=== PATIENT | male | born 1950 | race Caucasian/White ===

== ENCOUNTER 2021-01-19 08:01 | Outpatient (CLI) | payer OTHER, SELFPAY ==
[2021-01-19 08:48] LABS: Hematocrit 41.3 % (42.0-52.0); Hemoglobin 14.1 g/dL (14.0-18.0)
--- NOTE | 2021-01-19 08:56 | ECG_ITS ---
Measurements Intervals [place] Rate: 67 P: 249 NV: 213 QRS: -56 QRSD: 168 T: -10 QT: 386 QTc: 410 Interpretive Statements SINUS RHYTHM WITH FIRST DEGREE AV BLOCK ATRIAL PREMATURE COMPLEXES RIGHT BUNDLE BRANCH BLOCK LEFT ANTERIOR FASCICULAR BLOCK BASELINE ARTIFACT- I, II, III, AVR ABNORMAL ECG Electronically Signed On 01-19-2021 9:23:59 CDT by Robin Holloway D.O.
[2021-01-19 09:07] LABS: Albumin Level 3.8 g/dL (3.5-5.1); Estimated Glomerular Filt Rate > 60; Glucose 105 mg/dL (75-110)
== END 2021-01-19 08:02 | disposition home or self-care (01) ==
LOC: ANHLAB 08:11
PROVIDERS: PCP Internal Medicine; Visit Provider Orthopaedic Surgery
DX: M16.11 Unilateral primary osteoarthritis, right hip (principal); Z01.818 Encounter for other preprocedural examination; R73.9 Hyperglycemia, unspecified; I44.0 Atrioventricular block, first degree
CPT/HCPCS: 36415; 82040; 82565; 82947; 83036; 85014; 85018; 93005

== ENCOUNTER 2021-02-16 10:57 | Outpatient (CLI) | payer OTHER, SELFPAY ==
[2021-02-16 11:59] LABS: Basophils Percent Auto 0.3 % (0.2-1.2); Eosinophils Absolute Auto 0.4 K/mm3 (0-0.3); Eosinophils Percent Auto 6.6 % (0-4.4); Hematocrit 41.8 % (42.0-52.0); Hemoglobin 14.2 g/dL (14.0-18.0); Immature Granulocyte Absolute 0.02 K/mm3 (0.00-0.031); Immature Granulocyte Percent A 0.3 % (0-0.5); Lymphocytes Absolute Auto 1.39 K/mm3 (0.9-3.2); Lymphocytes Percent Auto 22.5 % (18.3-44.2); Mean Corpuscular Hemoglobin 32.6 pg (26-34); Mean Corpuscular Volume 96.1 fl (80-100); Mean Platelet Volume 8.5 fl (7.4-10.4); Monocytes Absolute Auto 0.7 K/mm3 (0.1-0.6); Monocytes Percent Auto 11.3 % (2.6-8.5); Neutrophils Absolute Auto 3.7 K/mm3 (1.3-6.7); Platelet Count Result 284 k/mm3 (150-375); Red Blood Count 4.35 M/mm3 (4.6-6.20); Red Cell Distribution Width 12.7 % (11.5-14.5); White Blood Count 6.2 K/mm3 (4.5-10.0)
[2021-02-16 12:11] LABS: Urine Cotinine NEGATIVE
[2021-02-16 12:12] LABS: Anion Gap 7 mmol/L (8-16); Blood Urea Nitrogen 10 mg/dL (9-20); Calcium 8.9 mg/dL (8.4-10.2); Carbon Dioxide 25 mmol/L (22-30); Chloride 106 mmol/L (98-107); Estimated Glomerular Filt Rate > 60; Glucose 94 mg/dL (75-110); Sodium 138 mmol/L (137-145)
== END 2021-02-16 10:58 | disposition home or self-care (01) ==
LOC: ANHSURGERY 11:00
PROVIDERS: Anesthesiology; PCP Internal Medicine; Visit Provider Orthopaedic Surgery
DX: M16.11 Unilateral primary osteoarthritis, right hip (principal); I10 Essential (primary) hypertension; Z01.818 Encounter for other preprocedural examination
CPT/HCPCS: 36415; 80048; 80307; 85025; 87081

== ENCOUNTER → 2021-02-28 00:41 | Outpatient (CLI) | payer OTHER, SELFPAY ==
[2021-02-28 20:54] LABS: SARS-CoV-2 RNA PCR Negative
== END ==
PROVIDERS: PCP Internal Medicine; Visit Provider Orthopaedic Surgery
DX: Z01.812 Encounter for preprocedural laboratory examination (principal); Z20.822 Contact with and (suspected) exposure to COVID-19
CPT/HCPCS: C9803; U0003; U0005

== ENCOUNTER 2021-03-03 02:51 | Day surgery (SDC) | payer OTHER, SELFPAY ==
[2021-02-16 11:04] VITALS: BMI 23.7
[2021-02-16 11:39] VITALS: BP 155/69; PULSE 74; RESP 16; TEMP 36.9; O2SAT 99
[2021-03-03] VITALS (14 sets, daily range): BP systolic 103–139; BP diastolic 52–69; PULSE 71–105; RESP 12–18; TEMP 35.4–36.9; O2SAT 94–100
--- NOTE | ~2021-03-03 | XR_ITS ---
EXAMINATION: XR hip RT min 2V DATE: 03/03/2021 13:45 INDICATION: Right hip arthroplasty. Postop. TECHNIQUE: 2 views of right hip were obtained. COMPARISON: Right hip radiographs 02/16/2021 FINDINGS: There is a total right hip arthroplasty in near-anatomic alignment. No fracture. There is s oft tissue gas, consistent with recent surgery. IMPRESSION: 1. Total right hip hemiarthroplasty in near-anatomic alignment. Reviewed, dictated and finalized at location A.
--- NOTE | 2021-03-03 10:01 | WPDHPUPDATE1 ---
History and Physical Update Update Date/Time: 03/03/21 10:01 History and Physical has been reviewed, including an updated exam of the patient. There are NO changes in the patient's condition. Risks, benefits, and alternatives have been discussed and questions answered. Patient agrees to proceed with procedure.
--- NOTE | 2021-03-03 10:07 | WPDANESEPPF ---
Anes - Initial Pre Proc Eval Procedure: Operation Date: 03/03/21 11:30 Proposed Procedures p Right Total Hip Arthroplasty - Nghia Chowdhury MD Date/Time: 03/03/21 10:07 Surgeon: Nghia Chowdhury MD Pre Op Diagnosis: primary OA right hip Patient Data Age: 70 Gender: M Height: 1.75 m Weight: 73.1 kg Last Vital Signs Temp 36.9 C 02/16/21 11:39 Pulse 74 02/16/21 11:39 Resp 16 02/16/21 11:39 BP 155/69 H 02/16/21 11:39 Pulse Ox 99 02/16/21 11:39 Allergies Allergy/AdvReac Type Severity Reaction Status Date / Time No Known Allergies Allergy Verified 03/03/21 09:27 Home Medications Medication Instructions Recorded Confirmed Type amlodipine 10 mg tablet See Rx Instructions .ROUTE 10/23/20 03/03/21 Rx .COMPLEX #90 tablet lisinopril 40 mg tablet 40 mg PO DAILY #90 tablet 11/04/20 03/03/21 Rx hydrochlorothiazide 12.5 mg tablet See Rx Instructions .ROUTE 11/28/20 03/03/21 Rx .COMPLEX #90 tablet hydrocodone 5 mg-acetaminophen 325 1 tablet PO Q8H PRN #60 tablet 02/11/21 03/03/21 Rx mg tablet aspirin [Adult Low Dose Aspirin] 81 mg PO DAILY 02/16/21 03/03/21 History niacin 500 mg PO DAILY 02/16/21 03/03/21 History Patient hx anesthesia problems: none Family hx anesthesia problems: none PMFSH Past Medical History Medical History Essential (primary) hypertension Primary osteoarthritis of right hip Family History Family History Sibling Patient's sister is in good health Father Family history of malignant neoplasm Patient's father is Mother Family history of malignant neoplasm Patient's mother is Social History Social History Smoking status: Never smoker Additional smoking assessment comments: DENIES ANY FORM OF TOBACCO USE Alcohol intake: current Drinks per week: 8 Alcohol use details: BEER Substance use: never Living arrangements: with friend(s) Gender identity (if verbalized by the patient): Male Spiritual care concerns: No Anes - Eval Final PreProcedure Day of Procedure 03/03/21 10:07 Patient weight: normal Heart: regular rate and rhythm Lungs: clear to auscultation and normal air movement Airway: Mallampati scale class II Neurological: alert and oriented Last oral intake: >/= 8 hours ASA classification: II Emergent: no Anesthetic plan: proceed Anesthesia type and monitoring: general ETT and standard monitoring Informed Consent: The patient's anesthetic plan and its attendant risks and benefits were discussed with the patient/family/POA. Questions were solicited and answers provided to the satisfaction of the patient/family/POA.
[2021-03-03] MEDS: LACTATED RINGERS 1,000 ML 30 ML IV CONT ×2 (10:09→13:29)
[2021-03-03] MEDS: TRANEXAMIC ACID 1,000MG/ISO100 1,000 MG/100 ML BAG 200 MG IVPB (10:26)
[2021-03-03] MEDS: ceFAZolin 2 GM/D5W 50 ML 2 GM/50 ML BAG IVPB (11:10)
--- NOTE | 2021-03-03 14:17 | PM.PROC ---
Procedure Note - Detailed Date of procedure: 03/03/21 Pre-op diagnosis: primary OA right hip Post-op diagnosis: same Procedure performed: Total hip arthroplasty, right hip. Description of procedure: End-stage disease with flexion contracture. Extensive periacetabular osteophytes removed. Good bone quality. Implants: The Accolade II hip stem, 127 degree size 5 , was utilized with excellent press-fit. The 58 mm Trident II acetabular component was impacted with excellent press-fit stability. 10 degree elevated polyethylene liner. The -2.5mm , 36 mm Biolox ceramic femoral head was utilized. Anesthesia: GLMA Surgeon: Nghia Chowdhury MD Estimated blood loss (mL): 300 Drains: No Pathology: none sent Complications: None Condition: stable Disposition: PACU Findings: OPERATIVE DETAILS: The patient was given preoperative antibiotics. A general anesthetic was administered. The patient was carefully placed in the lateral decubitus position on the PEG board. The shoulders and hips were carefully positioned for component and leg length positioning reference. The hip was prepped and draped in the usual sterile fashion. A longitudinal incision was created over the posterior aspect of the greater trochanter. Careful dissection was brought down through the deep fascia with electrocautery. A minimally invasive optimized posterior approach to the hip was performed. The short external rotators and capsule were taken down in an L-shaped capsulotomy. The tissue was tagged for later repair using number 2 high strength suture. The femoral neck was measured and taken in situ. The femoral head was removed. The acetabulum was carefully exposed. The inferior capsule was released. The labrum was resected. The acetabulum was sequentially reamed to the intended cup size. The cup was impacted into position with excellent press-fit. Typical anatomic landmarks, including the bony contact points as well as the inferior transverse acetabular ligament were used to confirm cup positioning with preoperative templating. Attention was turned to the femur, which was carefully exposed. The hip was reamed and then broached sequentially. Excellent press-fit was obtained with the broach. The hip was trialed. Measurements were utilized, including the lesser trochanter as well as the center of the femoral head and the tip of the trochanter, and excellent assessment of the offset and leg lengths were confirmed. The real components were impacted into position. Trialing confirmed appropriate leg length and offset with soft tissue balancing as well apparent feel of the leg, both at the knee and the heel. Soft tissues were assessed using the iliotibial band. Reduction of the posterior capsule and external rotators were also used as a secondary assessment. The hip was copiously irrigated with pulsatile lavage antibiotic solution periodically throughout the procedure. The real components were then assembled and reduced. The hip was stable throughout typical maneuvers, including extension, external rotation to 70 degrees, the position of sleep as well as flexion to 90 degrees with internal rotation past 45 degrees. The shake test confirmed stability without impingement. Osteophytes were removed as necessary. The short external rotators and capsule were repaired back to the posterior trochanter through drill holes. The deep fascia was repaired with running number 2 Quill suture, followed by 0 Stratafix suture and 2-0 Stratafix suture in the dermis. Steri-Strips were placed on the skin, followed by a sterile silver occlusive dressing. There were no complications. Meticulous hemostasis was maintained with the AquaMantys device. The patient was brought to the recovery room in stable condition. There were no complications.
--- NOTE | 2021-03-03 15:00 | ADMGEN ---
This patient, Dada Hameed, was admitted to Medical Room 254-01 from PACU. Patient/family oriented to hospital policies and general routines including ID bracelet, bed and alarms, visiting hours, pain management, procedures, bathroom and other care routines, personal items, smoking policy, room service/diet, and visiting hours. Information on how to activate the Rapid Response Team has been discussed. Patient/Family are encouraged to report perceived risks to care and to ask questions if they do not understand what they are told or what they should do.
[2021-03-03] MEDS: oxyCODONE HCL (*CRX) 5 MG TAB IR PO (15:34)
[2021-03-03 16:23] LABS: Hematocrit 37.8 % (42.0-52.0); Hemoglobin 13.1 g/dL (14.0-18.0)
[2021-03-03] MEDS: NIACIN SA 500 MG TABLET PO (16:24)
[2021-03-03] MEDS: DOCUSATE SODIUM 100 MG CAPSULE PO (16:24)
[2021-03-03] MEDS: hydroCHLOROthiazide 12.5 MG CAPSULE PO (16:24)
[2021-03-03] MEDS: lisinopriL 20 MG TABLET 40 MG PO (16:24)
[2021-03-03] MEDS: KETOROLAC 15 MG/ML VIAL (*BKC) IV PUSH ×2 (18:08→23:34)
--- NOTE | 2021-03-03 23:18 | PC.NURSE ---
Jr Ramos RNLP provided care and documentation for patient from 7 pm to 7:30 am, I have reviewed documentation and care for patient.
[2021-03-04 00:39] VITALS: BP 131/59; PULSE 72; RESP 16; TEMP 36.1; O2SAT 98
[2021-03-04 05:04] VITALS: BP 140/54; PULSE 72; RESP 16; TEMP 36.2; O2SAT 98
[2021-03-04 05:46] LABS: Basophils Percent Auto 0.1 % (0.2-1.2); Hematocrit 31.4 % (42.0-52.0); Hemoglobin 10.9 g/dL (14.0-18.0); Immature Granulocyte Absolute 0.04 K/mm3 (0.00-0.031); Immature Granulocyte Percent A 0.3 % (0-0.5); Lymphocytes Absolute Auto 0.72 K/mm3 (0.9-3.2); Lymphocytes Percent Auto 5.2 % (18.3-44.2); Mean Corpuscular HGB Conc 34.7 g/dl (32-36); Mean Corpuscular Hemoglobin 33.3 pg (26-34); Mean Platelet Volume 8.7 fl (7.4-10.4); Monocytes Absolute Auto 1.4 K/mm3 (0.1-0.6); Monocytes Percent Auto 10.1 % (2.6-8.5); Neutrophils Absolute Auto 11.6 K/mm3 (1.3-6.7); Neutrophils Percent Auto 84.3 % (45.5-73.1); Platelet Count Result 252 k/mm3 (150-375); Red Blood Count 3.27 M/mm3 (4.6-6.20); Red Cell Distribution Width 12.4 % (11.5-14.5); White Blood Count 13.7 K/mm3 (4.5-10.0)
[2021-03-04 05:55] LABS: Anion Gap 5 mmol/L (8-16); Blood Urea Nitrogen 13 mg/dL (9-20); Calcium 8.1 mg/dL (8.4-10.2); Carbon Dioxide 25 mmol/L (22-30); Chloride 102 mmol/L (98-107); Estimated CRCL calculation 82 ml/min; Estimated Glomerular Filt Rate > 60; Glucose 136 mg/dL (75-110); Potassium 3.6 mmol/L (3.4-5.0); Sodium 132 mmol/L (137-145)
[2021-03-04] MEDS: KETOROLAC 15 MG/ML VIAL (*BKC) IV PUSH ×2 (05:56→11:38)
[2021-03-04] MEDS: amLODIPine BESYLATE 5 MG TABLET 10 MG PO (08:10)
[2021-03-04] MEDS: DOCUSATE SODIUM 100 MG CAPSULE PO (08:10)
[2021-03-04] MEDS: ASPIRIN 81 MG CHEWABLE TABLET PO (08:10)
[2021-03-04] MEDS: hydroCHLOROthiazide 12.5 MG CAPSULE PO (08:11)
[2021-03-04] MEDS: NIACIN SA 500 MG TABLET PO (08:11)
[2021-03-04] MEDS: oxyCODONE HCL (*CRX) 5 MG TAB IR 10 MG PO (08:11)
[2021-03-04] MEDS: lisinopriL 20 MG TABLET 40 MG PO (08:11)
--- NOTE | 2021-03-04 09:23 | P.PNAN_ITS ---
Anes - Prog Note Post-Op Date/Time: 03/04/21 09:23 Cardiovascular status: normal Respiratory status: normal Airway patency: baseline Mental status: baseline Post-Op hydration status: normal Vital Signs: Last Vital Signs Temp 36.2 C L 03/04/21 05:04 Pulse 72 03/04/21 05:04 Resp 16 03/04/21 05:04 BP 140/54 L 03/04/21 05:04 Pulse Ox 98 03/04/21 05:04 Pain Score (VAS): 7 I/O: Intake & Output 03/03/21 03/04/21 03/04/21 23:59 07:59 15:59 Intake Total 470 400 Balance 470 400 Laboratory Tests 03/04/21 05:28 03/04/21 05:28 03/03/21 03/03/21 03/04/21 09:46 15:38 05:28 WBC 13.7 H RBC 3.27 L Hgb 13.1 L 10.9 L Hct 37.8 L 31.4 L MCV 96.0 MCH 33.3 MCHC 34.7 RDW 12.4 Plt Count 252 MPV 8.7 Immature Gran % (Auto) 0.3 Neut % (Auto) 84.3 H Lymph % (Auto) 5.2 L [place] % (Auto) 10.1 H Eos % (Auto) 0.0 Baso % (Auto) 0.1 L Lymph # (Auto) 0.72 L [place] # (Auto) 1.4 H Eos # (Auto) 0.0 Baso # (Auto) 0.0 Abs Immat Gran (auto) 0.04 H Absolute Neuts (auto) 11.6 H Absolute Nucleated RBC 0.0 Nucleated RBC % 0.0 Sodium Potassium Chloride Carbon Dioxide Anion Gap BUN Creatinine Estim Creat Clear Calc Estimated GFR Glucose Calcium Blood Type O Negative Antibody Screen Negative 03/04/21 05:28 WBC RBC Hgb Hct MCV MCH MCHC RDW Plt Count MPV Immature Gran % (Auto) Neut % (Auto) Lymph % (Auto) [place] % (Auto) Eos % (Auto) Baso % (Auto) Lymph # (Auto) [place] # (Auto) Eos # (Auto) Baso # (Auto) Abs Immat Gran (auto) Absolute Neuts (auto) Absolute Nucleated RBC Nucleated RBC % Sodium 132 L Potassium 3.6 Chloride 102 Carbon Dioxide 25 Anion Gap 5 L BUN 13 Creatinine 0.70 Estim Creat Clear Calc 82 Estimated GFR > 60 Glucose 136 H Calcium 8.1 L Blood Type Antibody Screen Post-procedural complaints: none Patient Feedback: Patient satisfied with anesthetic care.
[2021-03-04 10:00] VITALS: BP 150/62; PULSE 85; RESP 12; TEMP 36.2; O2SAT 96
--- NOTE | 2021-03-04 12:28 | PM.DS ---
DS: Admitting Diagnosis Admitting Diagnosis Admitting Diagnosis: hip arthritis right DS: Discharge Diagnosis Discharge Diagnosis (1) Primary osteoarthritis of right hip: Code(s): M16.11 - Unilateral primary osteoarthritis, right hip Status: Acute (2) Status post total hip replacement, right: Code(s): Z96.641 - Presence of right artificial hip joint Status: Acute DS: Summary Hospital Course Reason for hospitalization: Total hip arthroplasty. Hospital Course: Tolerated surgery well. Progressed appropriately with therapy. Status at Discharge Functional status at discharge: uses cane/walker Overall status at discharge: patient is progressing back to baseline Time Spent with Patient Time attestation: Total time spent providing and/or coordinating discharge services: Exam Const: General: no acute distress Resp: Effort & Inspection: normal respiratory effort Skin: Other: Wound healing well. Mepilex dressing intact. No hematoma or drainage. Neuro: Motor exam (neuro): 5/5 motor strength present throughout Sensory Exam: normal sensation Psych: Mental Status: mental status grossly normal Speech and movement: Normal speech and movement present DS: Data Data Completed and Pending Labs on day of discharge: Labs from last 24 hours 03/04/21 03/04/21 03/03/21 05:28 05:28 15:38 WBC 13.7 H RBC 3.27 L Hgb 10.9 L 13.1 L Hct 31.4 L 37.8 L MCV 96.0 MCH 33.3 MCHC 34.7 RDW 12.4 Plt Count 252 MPV 8.7 Immature Gran % (Auto) 0.3 Neut % (Auto) 84.3 H Lymph % (Auto) 5.2 L [place] % (Auto) 10.1 H Eos % (Auto) 0.0 Baso % (Auto) 0.1 L Lymph # (Auto) 0.72 L [place] # (Auto) 1.4 H Eos # (Auto) 0.0 Baso # (Auto) 0.0 Abs Immat Gran (auto) 0.04 H Absolute Neuts (auto) 11.6 H Absolute Nucleated RBC 0.0 Nucleated RBC % 0.0 Sodium 132 L Potassium 3.6 Chloride 102 Carbon Dioxide 25 Anion Gap 5 L BUN 13 Creatinine 0.70 Estim Creat Clear Calc 82 Estimated GFR > 60 Glucose 136 H Calcium 8.1 L Discharge Plan Discharge Patient Disposition: Home, Self-Care Discharge Instructions: See instruction sheet. Stand Alone Forms: General Discharge Instructions Follow-up/Referrals: Nghia Chowdhury MD [Physician] - Discharge Medications: New oxycodone-acetaminophen 5-325 mg tablet 1 - 2 tablet PO Q4-6H MDD 8 tablets PRN (Reason: pain) Qty: 30 RF: 0 Continued niacin 500 mg Tablet 500 mg PO DAILY RF: 0 aspirin 81 mg Tablet 81 mg PO DAILY RF: 0 amlodipine 10 mg tablet See Rx Instructions .ROUTE .COMPLEX Qty: 90 RF: 1 lisinopril 40 mg tablet 40 mg PO DAILY Qty: 90 RF: 1 hydrochlorothiazide 12.5 mg tablet See Rx Instructions .ROUTE .COMPLEX Qty: 90 RF: 1 Discontinued hydrocodone-acetaminophen 5-325 mg tablet 1 tablet PO Q8H PRN (Reason: pain) Qty: 60 RF: 0
== END 2021-03-04 13:36 | disposition home or self-care (01) ==
LOC: ANHSURGERY 09:25 → ANH2MED 15:04
PROVIDERS: PCP Internal Medicine; Visit Provider Orthopaedic Surgery
PROC: (CPT 27130; principal; 2021-03-03 11:30)
DX: M16.11 Unilateral primary osteoarthritis, right hip (principal); Z79.82 Long term (current) use of aspirin; I10 Essential (primary) hypertension
CPT/HCPCS: 27130; 36415; 73502; 80048; 80307; 85014; 85018; 85025; 86850; 86900; 86901; 87081; 97110; 97161; 97165; A9270; C1776; C9803; J0131; J0171; J0690; J1100; J1170; J1885; J2250; J2270; J2405; J2704; J2710; J2795; J3010; J7120; U0003; U0005

== ENCOUNTER 2022-06-01 13:05 | Outpatient (CLI) | payer OTHER, SELFPAY ==
--- NOTE | ~2022-06-01 | XR_ITS ---
XR abdomen/kub 1V 06/01/2022 13:19 Indication: Constipation Procedure: KUB Comparison: No prior studies for comparison. Findings: Bowel gas pattern is nonobstructive. No abnormal calcifications. There is a right total hip arthroplasty. No there is moderate lumbar spondylosis. Impression: 1: Nonobstructive bowel gas pattern. Reviewed, dictated and finalized at location A. Impression: 1: Nonobstructive bowel gas pattern.
== END 2022-06-01 13:06 | disposition home or self-care (01) ==
PROVIDERS: PCP Internal Medicine; Visit Provider Internal Medicine
DX: K59.00 Constipation, unspecified (principal)
CPT/HCPCS: 74018

== ENCOUNTER 2022-06-20 08:28 | Emergency (ER) | payer OTHER, SELFPAY ==
--- NOTE | ~2022-06-20 | CT_ITS ---
EXAMINATION: CT abdomen pelvis w con INDICATION: Generalized abdominal pain TECHNIQUE: Computed tomographic images of the abdomen and pelvis were obtained after the administrati on of 100 cc of Omnipaque 350 intravenous contrast. The dose-length product (DLP) was 433.78 mGy-cm. Automated exposure control and iterative reconstruction technique were employed. COMPARISON: None available FINDINGS: Minimal dependent atelectasis is present in the lung bases. The heart size is normal. The l iver, spleen, pancreas, gallbladder, and adrenal glands are normal. There is calcified atherosclerosi s of the aorta and many of the other arteries. No pathologically enlarged abdominal or pelvic lymph n odes are identified. There is no free intraperitoneal gas or evidence of bowel obstruction. There are some areas of formed stool in nondistended small bowel, consistent with slow transit. There is a lef t inguinal hernia containing fat. There is severe lumbar spondylosis. Changes of right hip arthroplas ty are noted. IMPRESSION: 1. No CT correlate for the patient's symptoms. Reviewed, dictated and finalized at location A.
[2022-06-20 08:33] VITALS: BP 130/60; PULSE 82; RESP 18; TEMP 36.6; O2SAT 99
[2022-06-20 08:36] VITALS: BP 135/72; O2SAT 97
--- NOTE | 2022-06-20 08:45 | ED.ABDPAIN ---
HPI - Abdominal Pain General Chief Complaint: Abdominal Pain Stated Complaint: constipation, weakness Time Seen by Provider: 06/20/22 08:44 Source: patient and RN notes reviewed Mode of arrival: ambulatory Limitations: no limitations History of Present Illness HPI narrative: 71 years old white male that lives alone, came by private car from home complaining of general weakness for more than 1 week, also bloating/constipation for more than 1 month, was seen by his family physician and started on MiraLAX. Patient been having on average 1-3 bowel movement a day but still feeling bloated. Patient scheduled for colonoscopy July 2022, patient has good appetite, denies any fever, chills, nausea, vomiting, chest pain or shortness of breath. Patient reports that the bloating gets worse every time he eats. Related Data Home Medications Medication Instructions Recorded Confirmed aspirin 81 mg tablet 81 mg PO DAILY 02/16/21 06/15/22 niacin 500 mg tablet 500 mg PO DAILY 02/16/21 06/15/22 calcium polycarbophil 625 mg 1,250 mg PO DAILY 06/15/22 06/15/22 tablet (FiberCon) Allergies Allergy/AdvReac Type Severity Reaction Status Date / Time No Known Allergies Allergy Verified 06/15/22 08:46 Review of Systems Review of Systems: All systems reviewed & are unremarkable except as noted in HPI and below PMFSH Past Medical History Medical History Essential (primary) hypertension Primary osteoarthritis of right hip Surgical History Surgical History Status post total hip replacement, right Family History Family History Sibling Patient's sister is in good health Father Family history of malignant neoplasm Patient's father is Mother Family history of malignant neoplasm Patient's mother is Social History Social History Smoking status: Never smoker Additional smoking assessment comments: DENIES ANY FORM OF TOBACCO USE Alcohol intake: current Drinks per week: 9 Alcohol use details: BEER Substance use: never Substance use type: does not use Gender identity (if verbalized by the patient): Male Sexual Orientation (if Verbalized by the Patient): Straight or Heterosexual Spiritual care concerns: No Exam Narrative: General appearance: Well-developed, well-nourished Skin: Normal color Head: Normocephalic, nontraumatic Eyes: Clear conjunctiva ENT: Oropharynx normal, ears normal, nose normal Neck: Supple, nontender Chest and respiratory: Airway patent, no respiratory distress, no accessory muscle use Heart: Regular rate/rhythm Abdomen: Soft, nontender, no organomegaly, quiet bowel sounds Vascular: Normal peripheral pulses, normal capillary refill. 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 Patient currently on MiraLAX. Believe patient probably have gastritis, versus stress/anxiety inducing abdominal discomfort. Patient lives alone. Vital Signs Vital signs: Vital Signs Temperature 36.6 C 06/20/22 08:33 Pulse Rate 82 06/20/22 08:33 Respiratory Rate 18 06/20/22 08:33 Blood Pressure 130/60 06/20/22 08:33 Pulse Oximetry 99 06/20/22 08:33 Oxygen Delivery Room Air 06/20/22 08:33 Temperature 36.6 C 06/07
[2022-06-20 08:46] VITALS: BP 130/67; O2SAT 93
[2022-06-20 08:47] LABS: Basophils Percent Auto 0.5 % (0.2-1.2); Eosinophils Absolute Auto 0.4 K/mm3 (0-0.3); Eosinophils Percent Auto 6.6 % (0-4.4); Hematocrit 46.5 % (42.0-52.0); Hemoglobin 15.3 g/dL (14.0-18.0); Immature Granulocyte Absolute 0.02 K/mm3 (0.00-0.031); Immature Granulocyte Percent A 0.3 % (0-0.5); Lymphocytes Absolute Auto 1.62 K/mm3 (0.9-3.2); Lymphocytes Percent Auto 26.6 % (18.3-44.2); Mean Corpuscular HGB Conc 32.9 g/dl (32-36); Mean Corpuscular Hemoglobin 32.4 pg (26-34); Mean Corpuscular Volume 98.5 fl (80-100); Mean Platelet Volume 8.5 fl (7.4-10.4); Monocytes Absolute Auto 0.8 K/mm3 (0.1-0.6); Neutrophils Absolute Auto 3.2 K/mm3 (1.3-6.7); Platelet Count Result 269 k/mm3 (150-375); Red Blood Count 4.72 M/mm3 (4.6-6.20); Red Cell Distribution Width 13.2 % (11.5-14.5); White Blood Count 6.1 K/mm3 (4.5-10.0)
[2022-06-20 09:00] LABS: Alanine Aminotransferase 20 U/L (6-50); Albumin Level 4.3 g/dL (3.5-5.1); Alkaline Phosphatase 84 U/L (38-126); Anion Gap 8 mmol/L (8-16); Aspartate Amino Transferase 31 U/L (17-59); Bilirubin,Total 0.6 mg/dL (0.2-1.3); Blood Urea Nitrogen 14 mg/dL (9-20); Calcium 8.9 mg/dL (8.4-10.2); Carbon Dioxide 23 mmol/L (22-30); Chloride 105 mmol/L (98-107); Estimated CRCL calculation 81 ml/min; Estimated Glomerular Filt Rate > 60; Glucose 109 mg/dL (65-110); Lipase 75 U/L (23-300); Potassium 3.8 mmol/L (3.4-5.0); Sodium 136 mmol/L (137-145)
[2022-06-20] MEDS: ONDANSETRON INJ 4 MG/2 ML VIAL IV PUSH (09:17)
[2022-06-20] MEDS: MORPHINE SULFATE (*CRX) 4 MG/ML INJ IV PUSH (09:18)
[2022-06-20] MEDS: SODIUM CHLORIDE 0.9% IV 1,000 ML 999 ML IV CONT (09:18)
[2022-06-20 10:02] VITALS: BP 134/60; O2SAT 97
[2022-06-20 10:19] LABS: Appearance Urine Clear (Clear); Bilirubin Urine Negative (Negative); Blood Urine Negative (Negative); Color Urine Yellow (Yellow); Glucose Urine UA Negative (Negative); Ketones Urine Trace mg/dL (Negative); Leukocyte Esterase Ur Negative LEU/UL (Negative); Nitrate Urine Negative (Negative); Protein Urine Negative (Negative); Specific Grav Ur 1.015 (1.001-1.035)
[2022-06-20 10:35] LABS: Mucus Urine Rare /lpf; RBC Urine 0-2 /hpf (0-2)
[2022-06-20 10:45] LABS: Add Urine Microscopic? YES
== END 2022-06-20 11:18 | disposition home or self-care (01) ==
PROVIDERS: Emergency Provider Emergency Medicine; PCP Internal Medicine
DX: R53.1 Weakness (principal); R10.9 Unspecified abdominal pain; I10 Essential (primary) hypertension; M16.11 Unilateral primary osteoarthritis, right hip; Z96.641 Presence of right artificial hip joint; Z79.82 Long term (current) use of aspirin
CPT/HCPCS: 36415; 74177; 80053; 81001; 83690; 85025; 96361; 96374; 96375; 99284; J2270; J2405; J7030; Q9967

== ENCOUNTER 2022-06-27 08:30 | Emergency (ER) | payer OTHER, SELFPAY ==
--- NOTE | ~2022-06-27 | CT_ITS ---
EXAMINATION: CT abdomen pelvis w con DATE: 06/27/2022 10:18 INDICATION: Generalized abdominal pain. TECHNIQUE: Computed tomography (CT) of the abdomen and pelvis was performed with 100 mL Omnipaque 350 intravenous contrast. Automated exposure control and iterative reconstruction technique were employe d. The dose-length product was 394.05 mGy-cm. COMPARISON: CT abdomen and pelvis 06/20/2022 FINDINGS: The visualized portions of the lung bases demonstrate mild atelectasis. No pleural effusion . There is left atrial enlargement of the heart. There are coronary artery calcifications. No pericar dial effusion. The liver, gallbladder, spleen, pancreas, adrenal glands, and kidneys are normal. The prostate is mildly enlarged. There is a left inguinal hernia containing fat. There is diverticulosis of the colon without evidence of diverticulitis. The appendix is normal. There are no pathologically enlarged lymph nodes. There is no free intraperitoneal fluid. There is a total right hip arthroplasty . There is severe lumbar spondylosis. IMPRESSION: 1. Left inguinal hernia containing fat. Reviewed, dictated and finalized at location A.
--- NOTE | ~2022-06-27 | XR_ITS ---
EXAMINATION: XR abdomen obstructive series DATE: 06/27/2022 09:09 INDICATION: Constipation. Abdominal pain. TECHNIQUE: Upright and supine views of the abdomen on 3 radiographs were obtained. COMPARISON: CT abdomen and pelvis 06/20/2022 FINDINGS: There are no dilated loops of bowel. There is a small volume of stool in the colon. No free intraperitoneal gas. There is a total right hip arthroplasty. IMPRESSION: 1. Normal bowel gas pattern. Reviewed, dictated and finalized at location A.
[2022-06-27 08:32] VITALS: BP 152/119; PULSE 66; RESP 20; TEMP 36.8; O2SAT 98
--- NOTE | 2022-06-27 09:06 | ED.ABDPAIN ---
HPI - Abdominal Pain General Chief Complaint: Abdominal Pain Stated Complaint: abd pain Time Seen by Provider: 06/27/22 09:04 Source: patient Mode of arrival: ambulatory Limitations: no limitations History of Present Illness HPI narrative: 71 years old white male came from home with the chief complaint of abdominal bloating for over 1 month, was seen recently in our emergency room, also was seen by his family physician who referred him to Dr. Mcdonald who schedule him for colonoscopy July 08, patient stopped taking MiraLAX 1 week Related Data Home Medications Medication Instructions Recorded Confirmed aspirin 81 mg tablet 81 mg PO DAILY 02/16/21 06/15/22 niacin 500 mg tablet 500 mg PO DAILY 02/16/21 06/15/22 calcium polycarbophil 625 mg 1,250 mg PO DAILY 06/15/22 06/15/22 tablet (FiberCon) Allergies Allergy/AdvReac Type Severity Reaction Status Date / Time No Known Allergies Allergy Verified 06/15/22 08:46 Review of Systems Review of Systems: All systems reviewed & are unremarkable except as noted in HPI and below PMFSH Past Medical History Medical History Essential (primary) hypertension Primary osteoarthritis of right hip Surgical History Surgical History Status post total hip replacement, right Family History Family History Sibling Patient's sister is in good health Father Family history of malignant neoplasm Patient's father is Mother Family history of malignant neoplasm Patient's mother is Social History Social History Smoking status: Never smoker Additional smoking assessment comments: DENIES ANY FORM OF TOBACCO USE Alcohol intake: current Drinks per week: 9 Alcohol use details: BEER Substance use: never Substance use type: does not use Gender identity (if verbalized by the patient): Male Sexual Orientation (if Verbalized by the Patient): Straight or Heterosexual Spiritual care concerns: No Exam Narrative: General appearance: Well-developed, well-nourished Skin: Normal color Head: Normocephalic, nontraumatic Eyes: Clear conjunctiva ENT: Oropharynx normal, ears normal, nose normal Neck: Supple, nontender Chest and respiratory: Airway patent, no respiratory distress, no accessory muscle use Heart: Regular rate/rhythm Abdomen: Soft, nontender, no organomegaly, quiet bowel sounds, distended Vascular: Normal peripheral pulses, normal capillary refill. Musculoskeletal: Normal range of motion, nontender back Neurologic: Alert and oriented ?3, SURGICAL TECHNOLOGIST is normal as tested, no gross motor deficit Course Vital Signs Vital signs: Vital Signs Temperature 36.8 C 06/27/22 08:32 Pulse Rate 66 06/27/22 08:32 Respiratory Rate 20 06/27/22 08:32 Blood Pressure 152/119 H 06/27/22 08:32 Pulse Oximetry 98 06/27/22 08:32 Oxygen Delivery Room Air 06/27/22 08:32 Temperature 36.5 C 06/27/22 09:11 Pulse Rate 66 06/27/22 09:11 Respiratory Rate 14 06/27/22 09:11 Blood Pressure 143/64 H 06/27/22 09:11 Pulse Oximetry 96 06/27/22 09:11 Oxygen Delivery Room Air 06/27/22 08:32 MDM - Abdominal Pain Differential Diagnosis Differential diagnosis: Likely abdominal pain, constipation, diverticulitis, gastroenteritis and pancreatitis Lab Data Result diagrams: 06/27/22 09:03 06/27/22 09:28 Labs: Lab Results 06/27/22 06/27/22 06/27/22 Range/Units 09:03 09:28 09:28 WBC 5.5 (4.5-10.0) K/
[2022-06-27 09:07] LABS: Basophils Percent Auto 0.4 % (0.2-1.2); Eosinophils Absolute Auto 0.3 K/mm3 (0-0.3); Eosinophils Percent Auto 4.9 % (0-4.4); Hematocrit 44.8 % (42.0-52.0); Hemoglobin 15.5 g/dL (14.0-18.0); Immature Granulocyte Absolute 0.02 K/mm3 (0.00-0.031); Immature Granulocyte Percent A 0.4 % (0-0.5); Lymphocytes Percent Auto 23.6 % (18.3-44.2); Mean Corpuscular HGB Conc 34.6 g/dl (32-36); Mean Corpuscular Hemoglobin 33.8 pg (26-34); Mean Corpuscular Volume 97.6 fl (80-100); Mean Platelet Volume 8.7 fl (7.4-10.4); Monocytes Absolute Auto 0.6 K/mm3 (0.1-0.6); Monocytes Percent Auto 10.3 % (2.6-8.5); Neutrophils Absolute Auto 3.3 K/mm3 (1.3-6.7); Neutrophils Percent Auto 60.4 % (45.5-73.1); Platelet Count Result 274 k/mm3 (150-375); Red Blood Count 4.59 M/mm3 (4.6-6.20); Red Cell Distribution Width 13.2 % (11.5-14.5); White Blood Count 5.5 K/mm3 (4.5-10.0)
[2022-06-27 09:11] VITALS: BP 143/64; PULSE 66; RESP 14; TEMP 36.5; O2SAT 96
[2022-06-27 09:35] LABS: Appearance Urine Clear (Clear); Bilirubin Urine 1+ (Negative); Blood Urine Negative (Negative); Color Urine Yellow (Yellow); Glucose Urine UA Negative (Negative); Ketones Urine Trace mg/dL (Negative); Leukocyte Esterase Ur Negative LEU/UL (Negative); Nitrate Urine Negative (Negative); Protein Urine Negative (Negative)
[2022-06-27 09:43] LABS: Bacteria Urine Trace /hpf; Mucus Urine Rare /lpf; RBC Urine 0-2 /hpf (0-2); WBC Urine 0-3 /hpf
[2022-06-27 09:44] LABS: Add Urine Microscopic? YES
[2022-06-27 09:48] LABS: Alanine Aminotransferase 20 U/L (6-50); Albumin Level 4.2 g/dL (3.5-5.1); Alkaline Phosphatase 77 U/L (38-126); Anion Gap 8 mmol/L (8-16); Aspartate Amino Transferase 35 U/L (17-59); Bilirubin,Total 0.5 mg/dL (0.2-1.3); Blood Urea Nitrogen 13 mg/dL (9-20); Calcium 8.5 mg/dL (8.4-10.2); Carbon Dioxide 25 mmol/L (22-30); Chloride 106 mmol/L (98-107); Estimated Glomerular Filt Rate > 60; Glucose 112 mg/dL (65-110); Lipase 58 U/L (23-300); Potassium 3.7 mmol/L (3.4-5.0); Sodium 139 mmol/L (137-145)
[2022-06-27 11:23] VITALS: RESP 16
== END 2022-06-27 11:24 | disposition home or self-care (01) ==
PROVIDERS: Emergency Provider Emergency Medicine; PCP Internal Medicine
DX: K40.90 Unilateral inguinal hernia, without obstruction or gangrene, not specified as recurrent (principal); R10.9 Unspecified abdominal pain; I10 Essential (primary) hypertension; M16.11 Unilateral primary osteoarthritis, right hip
CPT/HCPCS: 36415; 74019; 74177; 80053; 81001; 83690; 85025; 99284; Q9967

== ENCOUNTER 2022-07-08 05:00 | Day surgery (SDC) | payer OTHER, SELFPAY ==
--- NOTE | 2022-07-07 08:51 | PC.NURSE ---
Called patient this am to inquire if he was able to get a ride secured for procedure sched. 07/08/22. He does indicate his friend Dada will be driving him, after taking drivers info. I said we will see you in the morning and pt responded with I'm not sure about that . Upon questioning him about why he said that he states he is very weak, has already gone to the bathroom at least 4 times this morning and has not even started the prep, he states he has fallen twice this am. I asked him if I could call a family member or friend and he says what can they do for me, I just can't do this anymore, something is wrong with me. I explained that is why someone needs to come check on him and either help him to Dr. Zuñiga's office or he should call 911 and go to ER. He states he doesn't see what they will do for him, again I reiterated to him they can give him immediated care if needed and try to find out what is making him feel so bad. I offered to call someone for him and refused, He assured me he will call his neighbor or Dada-friend. I did tell him I will call and check on him in an hour but if he starts to feel worse he needs to call 911.
--- NOTE | 2022-07-07 10:14 | PC.NURSE ---
0915 called and spoke with office personnel in Dr. Zuñiga's office regarding conversation I had with him this morning, message sent to Dr. Zuñiga regarding this. 1015 spoke with Franky in Dr. Saleh office, pt came in and was seen at 0945 this morning. Lab work ordered, some changes to meds. no mention if pt is able to proceed with colonoscopy or not. She will ask Dr. Zuñiga and get back to me.
--- NOTE | 2022-07-07 13:08 | PC.NURSE ---
Spoke with Dr. Saleh office staff and he encouraged pt to proceed with colonoscopy. Pt called at 1300 to inform me he had taken the laxative tablets about 2 hours ago and still had not had a BM, I explained he may not until he starts Miralax. I encouraged him to drink lots of clear liquids and to keep his phone with him in case he would get dizzy or fall. He assured me he would.
--- NOTE | 2022-07-07 13:18 | PM.HPGS ---
History of Present Illness History of Present Illness Consent: Risks, benefits, and alternatives have been discussed and questions answered. Patient agrees to proceed with procedure. Chief complaint: change in bowel habits Narrative: Dada Hameed is a 71 year old male who?has been having problems with abdominal discomfort and constipation and it leaves him feeling rather weak.? He in fact has been had 2 visits to the emergency room about a week apart complaining that he feels tired and that his limbs feel weak.? He had also been constipated and thought perhaps there was an association.? A month or so ago he was using laxatives to help with his constipation. this morning the patient had a stool that was not liquid. He states that his stools were clear last night. On questioning him about his diet he admitted that he had hot dogs last evening. And in fact was eating all day long. He did not recall having received instructions about a clear liquid diet. Review of Systems Review of Systems: All systems reviewed & are unremarkable except as noted in HPI and below PMFSH Past Medical History Medical History Essential (primary) hypertension Primary osteoarthritis of right hip Surgical History Surgical History Status post total hip replacement, right Family History Family History Sibling Patient's sister is in good health Father Family history of malignant neoplasm Patient's father is Mother Family history of malignant neoplasm Patient's mother is Social History Social History Smoking status: Never smoker Additional smoking assessment comments: DENIES ANY FORM OF TOBACCO USE Alcohol intake: current Drinks per week: 9 Alcohol use details: BEER Substance use: never Substance use type: does not use Gender identity (if verbalized by the patient): Male Sexual Orientation (if Verbalized by the Patient): Straight or Heterosexual Spiritual care concerns: No Meds Home Medications and Allergies Home Medications Medication Instructions Recorded Confirmed Type aspirin 81 mg tablet 81 mg PO DAILY 02/16/21 07/08/22 History lisinopril 40 mg tablet 40 mg PO DAILY #90 tabs 04/12/22 07/08/22 Rx hydrochlorothiazide 12.5 mg tablet See Rx Instructions .Route 05/03/22 07/08/22 Rx .COMPLEX #90 tabs calcium polycarbophil 625 mg 1,250 mg PO DAILY 06/15/22 07/08/22 History tablet (FiberCon) amlodipine 10 mg tablet See Rx Instructions .Route 06/24/22 07/08/22 Rx .COMPLEX #90 tabs prochlorperazine maleate 10 mg 10 mg PO Q8H PRN nausea and 07/07/22 07/08/22 Rx tablet vomiting #30 tabs Allergies Allergy/AdvReac Type Severity Reaction Status Date / Time No Known Allergies Allergy Verified 07/08/22 09:38 Exam Const: General: alert Orientation/consciousness: patient oriented x3 Resp: Auscultation: clear to auscultation bilaterally Cardio: Rhythm: regular rhythm GI: GI Palp: Yes Soft to palpation and No Tenderness to palpation present (GI) Neuro: General: patient oriented x3 Assessment and Plan Assessment and plan (1) Encounter for screening colonoscopy: Code(s): Z12.11 - Encounter for screening for malignant neoplasm of colon Status: Acute Assessment and Plan: Due to patient not having follow prep instructions, he will need to be rescheduled.
[2022-07-08 09:41] VITALS: BP 129/57; PULSE 70; RESP 17; TEMP 36.6; O2SAT 100
--- NOTE | 2022-07-08 09:45 | SUR.PREOP ---
Patient stated that his stools were not all liquid during pre op interview. Patient stated that he ate hot dogs for dinner last night. Informed Dr. Mcdonald who then cancelled procedure. Patient verbalizes understanding that he will need to be rescheduled. Will try to draw outpatient lab work for him today.
--- NOTE | 2022-07-08 10:11 | SUR.PREOP ---
Patient rescheduled for tomorrow. Discussed at length prep instructions. Patient verbalizes understanding.
== END 2022-07-08 11:00 | disposition home or self-care (01) ==
PROVIDERS: PCP Internal Medicine; Visit Provider Internal Medicine Gastroenterology
PROC: 0DJD8ZZ Inspection of Lower Intestinal Tract, Via Natural or Artificial Opening Endoscopic (ICD-10-PCS; CPT 45378; principal; 2022-07-08 10:30)
DX: Z12.11 Encounter for screening for malignant neoplasm of colon (principal); Z53.09 Procedure and treatment not carried out because of other contraindication
CPT/HCPCS: 36415; 80053; 85025; 99211; G0463

== ENCOUNTER 2022-07-08 09:19 | Outpatient (CLI) | payer OTHER, SELFPAY ==
[2022-07-08 10:10] LABS: Basophils Percent Auto 0.2 % (0.2-1.2); Eosinophils Absolute Auto 0.3 K/mm3 (0-0.3); Eosinophils Percent Auto 5.1 % (0-4.4); Hematocrit 45.7 % (42.0-52.0); Immature Granulocyte Absolute 0.02 K/mm3 (0.00-0.031); Immature Granulocyte Percent A 0.4 % (0-0.5); Lymphocytes Absolute Auto 1.17 K/mm3 (0.9-3.2); Lymphocytes Percent Auto 22.1 % (18.3-44.2); Mean Corpuscular Hemoglobin 33.6 pg (26-34); Mean Platelet Volume 8.9 fl (7.4-10.4); Monocytes Absolute Auto 0.7 K/mm3 (0.1-0.6); Neutrophils Absolute Auto 3.1 K/mm3 (1.3-6.7); Neutrophils Percent Auto 59.2 % (45.5-73.1); Platelet Count Result 236 k/mm3 (150-375); Red Blood Count 4.76 M/mm3 (4.6-6.20); Red Cell Distribution Width 13.1 % (11.5-14.5); White Blood Count 5.3 K/mm3 (4.5-10.0)
[2022-07-08 10:20] LABS: Alanine Aminotransferase 23 U/L (6-50); Albumin Level 4.4 g/dL (3.5-5.1); Alkaline Phosphatase 75 U/L (38-126); Anion Gap 3 mmol/L (8-16); Aspartate Amino Transferase 31 U/L (17-59); Bilirubin,Total 0.5 mg/dL (0.2-1.3); Blood Urea Nitrogen 10 mg/dL (9-20); Calcium 9.3 mg/dL (8.4-10.2); Carbon Dioxide 26 mmol/L (22-30); Chloride 103 mmol/L (98-107); Estimated Glomerular Filt Rate > 60; Glucose 106 mg/dL (65-110); Sodium 132 mmol/L (137-145)
== END 2022-07-08 09:20 | disposition home or self-care (01) ==
PROVIDERS: PCP Internal Medicine; Visit Provider Internal Medicine
DX: R53.1 Weakness (principal); I10 Essential (primary) hypertension
CPT/HCPCS: 36415; 80053; 85025

== ENCOUNTER 2022-07-09 00:41 | Day surgery (SDC) | payer OTHER, SELFPAY ==
--- NOTE | 2022-07-07 13:19 | HP_ITS ---
This report was moved to the correct visit on 07/16/22. Original report was signed by Reji Mcdonald MD 07/08/22 [id number] . History of Present Illness History of Present Illness Consent: Risks, benefits, and alternatives have been discussed and questions answered. Patient agrees to proceed with procedure. Chief complaint: change in bowel habits Narrative: Dada Hameed is a 71 year old male who?has been having problems with abdominal discomfort and constipation and it leaves him feeling rather weak.? He in fact has been had 2 visits to the emergency room about a week apart complaining that he feels tired and that his limbs feel weak.? He had also been constipated and thought perhaps there was an association.? A month or so ago he was using laxatives to help with his constipation. this morning the patient had a stool that was not liquid. He states that his stools were clear last night. On questioning him about his diet he admitted that he had hot dogs last evening. And in fact was eating all day long. He did not recall having received instructions about a clear liquid diet. Review of Systems Review of Systems: All systems reviewed & are unremarkable except as noted in HPI and below PMFSH Past Medical History Medical History Essential (primary) hypertension Primary osteoarthritis of right hip Surgical History Surgical History Status post total hip replacement, right Family History Family History Sibling Patient's sister is in good health Father Family history of malignant neoplasm Patient's father is Mother Family history of malignant neoplasm Patient's mother is Social History Social History Smoking status: Never smoker Additional smoking assessment comments: DENIES ANY FORM OF TOBACCO USE Alcohol intake: current Drinks per week: 9 Alcohol use details: BEER Substance use: never Substance use type: does not use Gender identity (if verbalized by the patient): Male Sexual Orientation (if Verbalized by the Patient): Straight or Heterosexual Spiritual care concerns: No Meds Home Medications and Allergies Home Medications Medication Instructions Recorded Confirmed Type aspirin 81 mg tablet 81 mg PO DAILY 02/16/21 07/08/22 History lisinopril 40 mg tablet 40 mg PO DAILY #90 tabs 04/12/22 07/08/22 Rx hydrochlorothiazide 12.5 mg tablet See Rx Instructions .Route 05/03/22 07/08/22 Rx .COMPLEX #90 tabs calcium polycarbophil 625 mg 1,250 mg PO DAILY 06/15/22 07/08/22 History tablet (FiberCon) amlodipine 10 mg tablet See Rx Instructions .Route 06/24/22 07/08/22 Rx .COMPLEX #90 tabs prochlorperazine maleate 10 mg 10 mg PO Q8H PRN nausea and 07/07/22 07/08/22 Rx tablet vomiting #30 tabs Allergies Allergy/AdvReac Type Severity Reaction Status Date / Time No Known Allergies Allergy Verified 07/08/22 09:38 Exam Const: General: alert Orientation/consciousness: patient oriented x3 Resp: Auscultation: clear to auscultation bilaterally Cardio: Rhythm: regular rhythm GI: GI Palp: Yes Soft to palpation and No Tenderness to palpation present (GI) Neuro: General: patient oriented x3 Assessment and Plan Assessment and plan (1) Encounter for screening colonoscopy: Code(s): Z12.11 - Encounter for screening for malignant n
[2022-07-08 13:00] VITALS: BMI 23.8
--- NOTE | 2022-07-08 13:15 | P.HP_ITS ---
History of Present Illness History of Present Illness Consent: Risks, benefits, and alternatives have been discussed and questions answered. Patient agrees to proceed with procedure. Chief complaint: change in bowel habits Narrative: Dada Hameed is a 71 year old male who?has been having problems with abdominal discomfort and constipation and it leaves him feeling rather weak.? He in fact has been had 2 visits to the emergency room about a week apart compla ining that he feels tired and that his limbs feel weak.? He had also been constipated and thought perhaps there was an association.? A month or so ago he was using laxatives to help with his constipation. Review of Systems Review of Systems: All systems reviewed & are unremarkable except as noted in HPI and below PMFSH Past Medical History Medical History Essential (primary) hypertension Primary osteoarthritis of right hip Surgical History Surgical History Status post total hip replacement, right Family History Family History Sibling Patient's sister is in good health Father Family history of malignant neoplasm Patient's father is Mother Family history of malignant neoplasm Patient's mother is Social History Social History Smoking status: Never smoker Additional smoking assessment comments: DENIES ANY FORM OF TOBACCO USE Alcohol intake: current Drinks per week: 9 Alcohol use details: BEER Substance use: never Substance use type: does not use Living arrangements: alone Gender identity (if verbalized by the patient): Male Sexual Orientation (if Verbalized by the Patient): Straight or Heterosexual Spiritual care concerns: No Meds Home Medications and Allergies Home Medications Medication Instructions Recorded Confirmed Type aspirin 81 mg tablet 81 mg PO DAILY 02/16/21 07/08/22 History lisinopril 40 mg tablet 40 mg PO DAILY #90 tabs 04/12/22 07/08/22 Rx hydrochlorothiazide 12.5 mg tablet See Rx Instructions .Route 05/03/22 07/08/22 Rx .COMPLEX #90 tabs calcium polycarbophil 625 mg 1,250 mg PO DAILY 06/15/22 07/08/22 History tablet (FiberCon) amlodipine 10 mg tablet See Rx Instructions .Route 06/24/22 07/08/22 Rx .COMPLEX #90 tabs prochlorperazine maleate 10 mg 10 mg PO Q8H PRN nausea and 07/07/22 07/08/22 Rx tablet vomiting #30 tabs Allergies Allergy/AdvReac Type Severity Reaction Status Date / Time No Known Allergies Allergy Verified 07/09/22 11:11 Exam Resp: Auscultation: clear to auscultation bilaterally Cardio: Rate: regular rate Rhythm: regular rhythm GI: GI Palp: Yes Soft to palpation and No Tenderness to palpation present (GI) Assessment and Plan Assessment and plan (1) Encounter for screening colonoscopy: Code(s): Z12.11 - Encounter for screening for malignant neoplasm of colon Status: Acute Assessment and Plan: Colonoscopy with possible biopsy or polypectomy or cautery or injection of substances.
[2022-07-09 11:13] VITALS: BP 147/69; PULSE 71; RESP 18; TEMP 36.4; O2SAT 99; BMI 23.1
[2022-07-09] MEDS: LACTATED RINGERS 1,000 ML 150 ML IV CONT (11:21)
[2022-07-09 11:48] VITALS: BP 102/57; PULSE 59; RESP 17; O2SAT 97
--- NOTE | 2022-07-09 12:10 | WPDANESEPPF ---
Anes - Initial Pre Proc Eval Procedure: Operation Date: 07/09/22 12:30 Proposed Procedures p Colonoscopy - Reji Mcdonald MD Date/Time: 07/09/22 12:10 Surgeon: Reji Mcdonald MD Pre Op Diagnosis: change in bowel habits Patient Data Age: 71 Gender: M Height: 1.75 m Weight: 71 kg Last Vital Signs Temp 97.6 F 07/09/22 11:13 Pulse 71 07/09/22 11:13 Resp 18 07/09/22 11:13 BP 147/69 H 07/09/22 11:13 Pulse Ox 99 07/09/22 11:13 O2 Del Method Room Air 07/09/22 11:13 Allergies Allergy/AdvReac Type Severity Reaction Status Date / Time No Known Allergies Allergy Verified 07/09/22 11:11 Home Medications Medication Instructions Recorded Confirmed Type aspirin 81 mg tablet 81 mg PO DAILY 02/16/21 07/08/22 History lisinopril 40 mg tablet 40 mg PO DAILY #90 tabs 04/12/22 07/08/22 Rx hydrochlorothiazide 12.5 mg tablet See Rx Instructions .Route 05/03/22 07/08/22 Rx .COMPLEX #90 tabs calcium polycarbophil 625 mg 1,250 mg PO DAILY 06/15/22 07/08/22 History tablet (FiberCon) amlodipine 10 mg tablet See Rx Instructions .Route 06/24/22 07/08/22 Rx .COMPLEX #90 tabs prochlorperazine maleate 10 mg 10 mg PO Q8H PRN nausea and 07/07/22 07/08/22 Rx tablet vomiting #30 tabs Patient hx anesthesia problems: none Family hx anesthesia problems: none Results Review: All pre-operative results and documents have been reviewed as part of the pre-operative evaluation. [facility] Past Medical History Medical History Essential (primary) hypertension Primary osteoarthritis of right hip Surgical History Surgical History Status post total hip replacement, right Family History Family History Sibling Patient's sister is in good health Father Family history of malignant neoplasm Patient's father is Mother Family history of malignant neoplasm Patient's mother is Social History Social History Smoking status: Never smoker Additional smoking assessment comments: DENIES ANY FORM OF TOBACCO USE Alcohol intake: current Drinks per week: 9 Alcohol use details: BEER Substance use: never Substance use type: does not use Living arrangements: alone Gender identity (if verbalized by the patient): Male Sexual Orientation (if Verbalized by the Patient): Straight or Heterosexual Spiritual care concerns: No Anes - Eval Final PreProcedure Day of Procedure 07/09/22 12:10 Patient weight: normal Heart: regular rate and rhythm Lungs: clear to auscultation Airway: Mallampati scale class II Neurological: alert and oriented Last oral intake: >/= 8 hours ASA classification: II Emergent: no Anesthetic plan: proceed Anesthesia type and monitoring: general GIVS and standard monitoring Results Review: All pre-operative results and documents have been reviewed as part of the pre-operative evaluation. Informed Consent: The patient's anesthetic plan and its attendant risks and benefits were discussed with the patient/family/POA. Questions were solicited and answers provided to the satisfaction of the patient/family/POA.
[2022-07-09 12:58] VITALS: BP 102/59; PULSE 53; RESP 15; O2SAT 98
[2022-07-09 13:08] VITALS: BP 140/76; PULSE 60; RESP 15; O2SAT 99
== END 2022-07-09 13:23 | disposition home or self-care (01) ==
PROVIDERS: PCP Internal Medicine; Visit Provider Internal Medicine Gastroenterology
PROC: 0DJD8ZZ Inspection of Lower Intestinal Tract, Via Natural or Artificial Opening Endoscopic (ICD-10-PCS; CPT 45378; principal; 2022-07-09 12:30)
DX: Z12.11 Encounter for screening for malignant neoplasm of colon (principal); R19.4 Change in bowel habit; K64.8 Other hemorrhoids; K57.30 Diverticulosis of large intestine without perforation or abscess without bleeding; I10 Essential (primary) hypertension; Z79.82 Long term (current) use of aspirin
CPT/HCPCS: G0121; J2704; J7120

== ENCOUNTER 2023-01-10 09:50 | Emergency (ER) | payer OTHER, SELFPAY ==
--- NOTE | ~2023-01-10 | XR_ITS ---
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 RT LOW ABD PAIN Comparison: CT abdomen and pelvis 06/27/2022. RESULT: Lines, tubes, and devices: None. Lungs and pleura: Clear. Cardiomediastinal silhouette: Unremarkable. Other: No acute osseous or upper abdominal finding. IMPRESSION: No acute cardiopulmonary process. Reviewed, dictated and finalized at location K. ICAL THERAPY TEACHER
[2023-01-10 10:03] VITALS: BP 102/46; PULSE 84; RESP 16; TEMP 36.7; O2SAT 97
[2023-01-10 13:01] VITALS: BP 111/70; PULSE 73; RESP 12; O2SAT 98
[2023-01-10 13:47] LABS: Basophils Percent Auto 0.2 % (0.2-1.2); Eosinophils Percent Auto 0.1 % (0-4.4); Hematocrit 41.1 % (42.0-52.0); Hemoglobin 14.4 g/dL (14.0-18.0); Immature Granulocyte Absolute 0.08 K/mm3 (0.00-0.031); Immature Granulocyte Percent A 0.5 % (0-0.5); Lymphocytes Absolute Auto 1.08 K/mm3 (0.9-3.2); Lymphocytes Percent Auto 6.2 % (18.3-44.2); Mean Corpuscular Hemoglobin 32.5 pg (26-34); Mean Corpuscular Volume 92.8 fl (80-100); Mean Platelet Volume 8.6 fl (7.4-10.4); Monocytes Absolute Auto 1.2 K/mm3 (0.1-0.6); Monocytes Percent Auto 7.2 % (2.6-8.5); Neutrophils Absolute Auto 14.9 K/mm3 (1.3-6.7); Neutrophils Percent Auto 85.8 % (45.5-73.1); Platelet Count Result 371 k/mm3 (150-375); Red Blood Count 4.43 M/mm3 (4.6-6.20); Red Cell Distribution Width 12.5 % (11.5-14.5); White Blood Count 17.3 K/mm3 (4.5-10.0)
[2023-01-10 13:58] LABS: Alanine Aminotransferase 25 U/L (6-50); Alkaline Phosphatase 59 U/L (38-126); Anion Gap 9 mmol/L (8-16); Aspartate Amino Transferase 30 U/L (17-59); Bilirubin,Total 0.9 mg/dL (0.2-1.3); Blood Urea Nitrogen 17 mg/dL (9-20); Calcium 8.9 mg/dL (8.4-10.2); Carbon Dioxide 23 mmol/L (22-30); Chloride 107 mmol/L (98-107); Estimated CRCL calculation 71 ml/min; Estimated Glomerular Filt Rate > 60; Glucose 104 mg/dL (65-110); Potassium 3.4 mmol/L (3.4-5.0); Sodium 139 mmol/L (137-145)
[2023-01-10] MEDS: SODIUM CHLORIDE 0.9% IV 1,000 ML 999 ML IV CONT (14:00)
--- NOTE | 2023-01-10 15:00 | ED.WEAKNESS ---
HPI - Weakness General Chief complaint: Weakness Stated complaint: don't feel good, has COVID Time Seen by Provider: 01/10/23 13:02 History of Present Illness HPI Narrative: Patient is a 72-year-old male who presents ER with weakness. Began today. Diagnosed with COVID 6 days ago. Took 5 days Paxlovid. Has been feeling slightly improved until he finished it and woke up today. No chest pain or chest pressure. No runny nose or sore throat. No productive cough. No urinary frequency or urgency or dysuria. Has not been on steroids. Related Data Home Medications Medication Instructions Recorded Confirmed aspirin 81 mg tablet 81 mg PO DAILY 02/16/21 12/23/22 calcium polycarbophil 625 mg 1,250 mg PO DAILY 06/15/22 12/23/22 tablet (FiberCon) Allergies Allergy/AdvReac Type Severity Reaction Status Date / Time No Known Allergies Allergy Verified 01/10/23 13:02 Review of Systems Review of Systems: All systems reviewed & are unremarkable except as noted in HPI and below Constitutional: Constitutional: Denies chills, Reports fatigue and Denies fever(s) ENT: Denies nasal congestion and Denies sore throat Cardiovascular: Cardiovascular: Denies chest pain, Denies rapid heart rate and Denies radiating jaw, neck or arm pain Respiratory: Respiratory: Denies cough, Denies dyspnea and Denies wheezing Gastrointestinal: Gastrointestinal: Denies abdominal pain, Denies nausea and Denies vomiting Genitourinary: Genitourinary: Denies dysuria and Denies urinary frequency PMFSH Past Medical History Medical History Essential (primary) hypertension Primary osteoarthritis of right hip Surgical History Surgical History Status post total hip replacement, right Family History Family History Sibling Patient's sister is in good health Father Family history of malignant neoplasm Patient's father is Mother Family history of malignant neoplasm Patient's mother is Social History Social History Smoking status: Never smoker Additional smoking assessment comments: DENIES ANY FORM OF TOBACCO USE Alcohol intake: current Drinks per week: 6 Alcohol use details: beer Substance use: never Substance use type: does not use Living arrangements: alone Occupation/Education: occupation Gender identity (if verbalized by the patient): Male Sexual Orientation (if Verbalized by the Patient): Straight or Heterosexual Spiritual care concerns: No Exam Narrative: GENERAL: Well-appearing, well-nourished, and in no acute distress. HEAD: Normocephalic, atraumatic. EYES: PERRL and EOMI.. CHEST: Clear to auscultation. No respiratory distress. HEART: Regular rate and rhythm. Normal peripheral pulses. ABDOMEN: Soft, nontender, nondistended. EXTREMITIES: Normal range of motion. No edema. SKIN: Warm, dry, no rash. NEURO: Alert and oriented x3. PSYCH: Normal mood and affect. Course Course Emergency Course: Patient educated about lab and imaging findings. Significant leukocytosis of 17,300. No pneumonia on x-ray. Patient has no dyspnea or cough. Walking pulse oximetry of 96% on room air. Feels much better after IV fluids. Will start on oral antibiotics in case he could be developing pneumonia causing his leukocytosis as he has not been on steroids. I have contacted his PCP Dr. Ortiz to discuss his treatment plan and ensure close follow-up. Vital Signs Vital signs: Vital Signs Temperature 98.0 F 01/10/23 10:03 Pulse Rate 84 01/10/23 10:03 Respiratory Rate 16 01/10/23 10:03 Blood Pressure 102/46 L 01/10/23 10:03 Pulse Oximetry 97 01/10/23 10:03 Oxygen Delivery Room Air 01/10/23 10:03 Temperature 98.0 F 01/10/23 10:03 Pulse Rate 73 01/10/23 1
[2023-01-10 15:42] VITALS: BP 118/58; PULSE 74; RESP 15; O2SAT 99
== END 2023-01-10 15:44 | disposition home or self-care (01) ==
PROVIDERS: Emergency Provider Emergency Medicine; PCP Internal Medicine
DX: U07.1 COVID-19 (principal); R53.1 Weakness; D72.829 Elevated white blood cell count, unspecified; I10 Essential (primary) hypertension; Z79.82 Long term (current) use of aspirin
CPT/HCPCS: 36415; 71045; 80053; 85025; 96360; 99284; J7030

== ENCOUNTER 2023-01-13 05:33 | Emergency (ER) | payer OTHER, SELFPAY ==
[2023-01-13] VITALS (26 sets, daily range): BP systolic 115–130; BP diastolic 57–74; PULSE 64–82; RESP 12–20; TEMP 36.2; O2SAT 92–99
--- NOTE | ~2023-01-13 | XR_ITS ---
Portable chest x-ray Comparison: 01/10/2023 Clinical History: Cough, Covid 19 infection Findings: Lungs are clear, without focal consolidation or pleural effusion. Cardiomediastinal silho uette is stable. Bones and soft tissues are unremarkable. Impression: Clear lungs. Reviewed, dictated and finalized at [facility]. EY COORDINATOR Impression: Clear lungs.
--- NOTE | 2023-01-13 06:05 | ECG_ITS ---
Measurements Intervals [place] Rate: 66 P: -84 MS: 200 QRS: -54 QRSD: 174 T: 32 QT: 424 QTc: 445 Interpretive Statements ECTOPIC ATRIAL RHYTHM RIGHT BUNDLE BRANCH BLOCK LEFT ANTERIOR FASCICULAR BLOCK VOLTAGE CRITERIA FOR LVH HIGH LATERAL INFARCT, AGE INDETERMINATE BASELINE ARTIFACT- V1-V3 ABNORMAL ECG COMPARED TO ECG 01/19/2021 09:02:09 ECTOPIC ATRIAL RHYTHM NOW PRESENT MYOCARDIAL INFARCT FINDING NOW PRESENT Electronically Signed On 01-13-2023 14:58:16 ASBESTOS ABATEMENT TECHNICIAN by Robin Holloway D.O.
--- NOTE | 2023-01-13 06:06 | ED.GENADULT ---
HPI - General Adult General Chief complaint: Weakness Stated complaint: I'm sick I have had covid-19 for 9 days Time Seen by Provider: 01/13/23 05:53 History of Present Illness HPI narrative: This is a 72-year-old gentleman presenting ED with a chief complaint of weakness. Patient diagnosed with COVID A days ago. Patient says that he has just felt unwell and weak. He denies fever, chills, chest pain, difficulty breathing, abdominal pain, nausea vomiting or diarrhea. He denies urinary symptoms. He denies lower extremity edema. Related Data Home Medications Medication Instructions Recorded Confirmed calcium polycarbophil 625 mg tablet 1,250 mg PO DAILY 01/11/23 01/11/23 Allergies Allergy/AdvReac Type Severity Reaction Status Date / Time No Known Allergies Allergy Verified 01/11/23 07:56 [facility] Past Medical History Medical History Essential (primary) hypertension Primary osteoarthritis of right hip Surgical History Surgical History Status post total hip replacement, right Family History Family History Sibling Patient's sister is in good health Father Family history of malignant neoplasm Patient's father is Mother Family history of malignant neoplasm Patient's mother is Social History Social History Smoking status: Never smoker Additional smoking assessment comments: DENIES ANY FORM OF TOBACCO USE Alcohol intake: never Substance use: never Substance use type: does not use Living arrangements: alone Occupation/Education: occupation Gender identity (if verbalized by the patient): Male Sexual Orientation (if Verbalized by the Patient): Straight or Heterosexual Spiritual care concerns: No Exam Narrative: APPEARANCE: No apparent distress. Head: atraumatic. EYES: EOMI, NOSE: Atraumatic NECK: Trachea midline RESPIRATORY: No increased rate of breathing Clear to auscultation bilaterally CARDIOVASCULAR: RRR, no peripheral edema ABDOMINAL: Non-distended, soft, nontender no guarding or rebound MUSCULOSKELETAL: No obvious deformities NEURO: Alert. Moving 4/4 extremities SKIN:: Warm, dry. Normal color PSYCHIATRIC: Normal affect Course Course Emergency Course: 0700 Zych: Signed out to oncoming physician pending completion of workup and improvement of symptoms. Vital Signs Vital signs: Vital Signs Temperature 97.1 F L 01/13/23 05:42 Pulse Rate 82 01/13/23 05:42 Respiratory Rate 16 01/13/23 05:42 Blood Pressure 127/71 01/13/23 05:42 Pulse Oximetry 97 01/13/23 05:42 Oxygen Delivery Room Air 01/13/23 05:42 Temperature 97.1 F L 01/13/23 05:42 Pulse Rate 73 01/13/23 06:54 Respiratory Rate 12 01/13/23 06:54 Blood Pressure 118/59 L 01/13/23 06:54 Pulse Oximetry 98 01/13/23 06:54 Oxygen Delivery Room Air 01/13/23 05:42 Medical Decision Making MDM Narrative Medical decision making narrative: -Presentation: this is a 72-year-old male presenting 8 days after COVID-19 infection. His chief complaint is weakness but there are no focal findings with which to guide a workup. Given his COVID infection we will get a chest x-ray EKG and basic lab work. He notes decreased oral intake so we will give him 2 L of fluid and some Tylenol. -DDX includes but is not limited to: viral syndrome, dehydration, pneumonia -Co-morbidities complicating care: -Social determinants of health: -External Chart Review: -Hx from independent Sources: -Discussion of Management/Consultants: -Independent interpretation of studies: CBC was within normal limits. Metabolic panel significant for hypokalemia which is repleted orally. Chest x-ray was clear. Independent EKG interpretation: Rhythm [sinu
[2023-01-13] MEDS: SODIUM CHLORIDE 0.9% IV 2,000 ML 999 ML IV CONT (06:21)
[2023-01-13] MEDS: ACETAMINOPHEN 500 MG TABLET 1000 MG PO (06:38)
[2023-01-13 06:43] LABS: Basophils Percent Auto 0.3 % (0.2-1.2); Eosinophils Absolute Auto 0.1 K/mm3 (0-0.3); Eosinophils Percent Auto 1.7 % (0-4.4); Hematocrit 41.1 % (42.0-52.0); Hemoglobin 14.1 g/dL (14.0-18.0); Immature Granulocyte Absolute 0.03 K/mm3 (0.00-0.031); Immature Granulocyte Percent A 0.4 % (0-0.5); Lymphocytes Absolute Auto 1.08 K/mm3 (0.9-3.2); Lymphocytes Percent Auto 15.7 % (18.3-44.2); Mean Corpuscular HGB Conc 34.3 g/dl (32-36); Mean Corpuscular Hemoglobin 32.6 pg (26-34); Mean Corpuscular Volume 95.1 fl (80-100); Mean Platelet Volume 8.6 fl (7.4-10.4); Monocytes Absolute Auto 0.6 K/mm3 (0.1-0.6); Monocytes Percent Auto 9.2 % (2.6-8.5); Neutrophils Percent Auto 72.7 % (45.5-73.1); Platelet Count Result 368 k/mm3 (150-375); Red Blood Count 4.32 M/mm3 (4.6-6.20); Red Cell Distribution Width 12.2 % (11.5-14.5); White Blood Count 6.9 K/mm3 (4.5-10.0)
[2023-01-13 06:56] LABS: Anion Gap 6 mmol/L (8-16); Blood Urea Nitrogen 15 mg/dL (9-20); Calcium 8.8 mg/dL (8.4-10.2); Carbon Dioxide 24 mmol/L (22-30); Chloride 107 mmol/L (98-107); Estimated CRCL calculation 80 ml/min; Estimated Glomerular Filt Rate > 60; Glucose 99 mg/dL (65-110); Potassium 3.1 mmol/L (3.4-5.0); Sodium 137 mmol/L (137-145)
[2023-01-13] MEDS: POTASSIUM CHLORIDE 20 MEQ TABLET 40 MEQ PO (07:29)
== END 2023-01-13 09:27 | disposition home or self-care (01) ==
PROVIDERS: Emergency Provider Emergency Medicine; PCP Internal Medicine
DX: U07.1 COVID-19 (principal); E87.6 Hypokalemia; I10 Essential (primary) hypertension; M16.11 Unilateral primary osteoarthritis, right hip; Z96.641 Presence of right artificial hip joint; I45.2 Bifascicular block; R94.31 Abnormal electrocardiogram [ECG] [EKG]
CPT/HCPCS: 36415; 71045; 80048; 85025; 93005; 96360; 96361; 99283; A9270; J7030

== ENCOUNTER 2023-01-24 09:25 | Emergency (ER) | payer OTHER, SELFPAY ==
--- NOTE | ~2023-01-24 | XR_ITS ---
XR chest 1V portable DATE: 01/24/2023 11:29 INDICATION: Weakness. History of Covid infection 3 weeks ago. TECHNIQUE: Portable upright AP chest on 01/24/2023 1126 hours COMPARISON: 01/23/2023 portable AP chest at 0623 hours FINDINGS: Normal heart size. Aortic arch calcification, minimal aortic unfolding. No hilar or mediastinal enlargement. No pulmonary infiltrate or consolidation, pleural effusion or pulmonary vascular congestion or pneumo thorax. Degenerative spurring of the thoracic spine. IMPRESSION: No active cardiopulmonary disease Reviewed, dictated and finalized at location B.
[2023-01-24 09:38] VITALS: BP 122/63; PULSE 69; RESP 16; TEMP 36.9; O2SAT 100
[2023-01-24 11:30] VITALS: BP 138/69; PULSE 67; RESP 18; O2SAT 99
--- NOTE | 2023-01-24 11:38 | ED.WEAKNESS ---
HPI - Weakness General Chief complaint: Weakness Stated complaint: COVID+ 3 weeks ago, c/o weakness Time Seen by Provider: 01/24/23 11:18 History of Present Illness HPI Narrative: Patient states he was diagnosed with COVID 3 weeks ago, since then he has been feeling quite weak and tired, he states that he has trouble sleeping at night and will wake up in the middle the night, he is no longer having any dyspnea or chest discomfort, he just feels tired and sometimes feels like he has to clear his throat and feels like he is having trouble clearing his throat. Has not followed-up with his doctor. Related Data Home Medications Medication Instructions Recorded Confirmed calcium polycarbophil 625 mg tablet 1,250 mg PO DAILY 01/11/23 01/11/23 Allergies Allergy/AdvReac Type Severity Reaction Status Date / Time No Known Allergies Allergy Verified 01/11/23 07:56 Review of Systems Review of Systems: CONST: Feels tired HEENT: Feels need to clear throat C/V: No chest pain RESP: No cough or shortness of breath GI: No abdominal pain, nausea or vomiting : No dysuria. M/S: No joint pain. SKIN: No rash. NEURO: [No headache or focal numbness or weakness] PSYCH: [No depression] [facility] Past Medical History Medical History Essential (primary) hypertension Primary osteoarthritis of right hip Surgical History Surgical History Status post total hip replacement, right Family History Family History Sibling Patient's sister is in good health Father Family history of malignant neoplasm Patient's father is Mother Family history of malignant neoplasm Patient's mother is Social History Social History Smoking status: Never smoker Additional smoking assessment comments: DENIES ANY FORM OF TOBACCO USE Alcohol intake: never Substance use: never Substance use type: does not use Living arrangements: alone Occupation/Education: occupation Gender identity (if verbalized by the patient): Male Sexual Orientation (if Verbalized by the Patient): Straight or Heterosexual Spiritual care concerns: No Exam Narrative: EXAMINATION OF ORGAN SYSTEMS/BODY AREAS: Constitutional: Vital signs per nursing GENERAL:[No acute distress, non-toxic appearing.] HEAD: Normal with no signs of head trauma. EYES: EOMI, conjunctiva normal ENT: Hearing grossly intact, speaking with clear speech LUNGS: Nonlabored breathing. HEART: [Regular rate and rhythm] ABD: [Soft], [nontender to palpation] EXT: Normal range of motion SKIN: [No rashes or lesions.] NEURO: [Alert and oriented x 3. No gross focal sensory or strength deficits.] PSYCH: Normal affect Course Vital Signs Vital signs: Vital Signs Temperature 98.5 F 01/24/23 09:38 Pulse Rate 69 01/24/23 09:38 Respiratory Rate 16 01/24/23 09:38 Blood Pressure 122/63 01/24/23 09:38 Pulse Oximetry 100 01/24/23 09:38 Temperature 98.5 F 01/24/23 09:38 Pulse Rate 60 01/24/23 12:50 Respiratory Rate 16 01/24/23 12:50 Blood Pressure 132/60 01/24/23 12:50 Pulse Oximetry 98 01/24/23 12:50 MDM - Weakness MDM Narrative Medical decision making narrative: Patient presents with complaints of still feeling tired and weak 3 weeks after having COVID, overall his symptoms have improved with resolved shortness of breath and cough, he feels as if he is still having difficulty staying asleep at night. Vital signs normal here, he is very well-appearing, nonlabored respirations, speaking full sentences, clear speech, no trismus. I have low concern for any serious issue given his benign exam and vital signs, however I will obtain blood work and chest x-ray to make sure he has no electrolyte issue or pneumonia or any othe
[2023-01-24 12:05] LABS: Basophils Percent Auto 0.4 % (0.2-1.2); Eosinophils Absolute Auto 0.1 K/mm3 (0-0.3); Eosinophils Percent Auto 2.6 % (0-4.4); Hematocrit 42.2 % (42.0-52.0); Hemoglobin 14.4 g/dL (14.0-18.0); Immature Granulocyte Absolute 0.01 K/mm3 (0.00-0.031); Immature Granulocyte Percent A 0.2 % (0-0.5); Lymphocytes Absolute Auto 1.26 K/mm3 (0.9-3.2); Lymphocytes Percent Auto 27.3 % (18.3-44.2); Mean Corpuscular HGB Conc 34.1 g/dl (32-36); Mean Corpuscular Hemoglobin 32.4 pg (26-34); Mean Corpuscular Volume 94.8 fl (80-100); Monocytes Absolute Auto 0.6 K/mm3 (0.1-0.6); Monocytes Percent Auto 12.6 % (2.6-8.5); Neutrophils Absolute Auto 2.6 K/mm3 (1.3-6.7); Neutrophils Percent Auto 56.9 % (45.5-73.1); Platelet Count Result 286 k/mm3 (150-375); Red Blood Count 4.45 M/mm3 (4.6-6.20); Red Cell Distribution Width 12.4 % (11.5-14.5); White Blood Count 4.6 K/mm3 (4.5-10.0)
[2023-01-24 12:16] LABS: Alanine Aminotransferase 28 U/L (6-50); Albumin Level 4.1 g/dL (3.5-5.1); Alkaline Phosphatase 70 U/L (38-126); Anion Gap 2 mmol/L (8-16); Aspartate Amino Transferase 29 U/L (17-59); Bilirubin,Total 0.7 mg/dL (0.2-1.3); Blood Urea Nitrogen 11 mg/dL (9-20); Carbon Dioxide 27 mmol/L (22-30); Chloride 106 mmol/L (98-107); Estimated CRCL calculation 80 ml/min; Estimated Glomerular Filt Rate > 60; Glucose 104 mg/dL (65-110); Potassium 4.1 mmol/L (3.4-5.0); Sodium 135 mmol/L (137-145)
[2023-01-24 12:50] VITALS: BP 132/60; PULSE 60; RESP 16; O2SAT 98
== END 2023-01-24 13:00 | disposition home or self-care (01) ==
PROVIDERS: Emergency Provider Emergency Medicine; PCP Internal Medicine
DX: R53.83 Other fatigue (principal); G47.00 Insomnia, unspecified; I10 Essential (primary) hypertension; M16.11 Unilateral primary osteoarthritis, right hip; Z86.16 Personal history of COVID-19; Z96.641 Presence of right artificial hip joint
CPT/HCPCS: 36415; 71045; 80053; 85025; 99283

== ENCOUNTER 2023-11-20 08:39 | Emergency (ER) | payer OTHER, SELFPAY ==
--- NOTE | ~2023-11-20 | CT_ITS ---
EXAMINATION: CT abdomen pelvis w con INDICATION: Constipation TECHNIQUE: Computed tomographic images of the abdomen and pelvis were obtained after the administrati on of 100 cc of Omnipaque 350 intravenous contrast. The dose-length product (DLP) was 303.29 mGy-cm. Automated exposure control and iterative reconstruction technique were employed. COMPARISON: 06/27/2022 FINDINGS: The lung bases are clear. The heart size is normal. The liver, spleen, pancreas, gallbladde r, and adrenal glands are normal. The kidneys are unremarkable. The appendix is normal. No pathologically enlarged abdominal or pelvic lymph nodes are identified. No free intraperitoneal gas or evidence of bowel obstruction. There is a normal volume of colonic stool . There is calcified atherosclerosis of the aorta and many of the other arteries. There is a left ing uinal hernia containing fat. There is severe lumbar spondylosis. There are changes of right hip arthr oplasty. IMPRESSION: 1. No CT correlate for the patient's symptoms. Reviewed, dictated and finalized at location F. TER SUPERVISOR
[2023-11-20 08:40] VITALS: BP 135/69; PULSE 72; RESP 18; TEMP 36.5; O2SAT 100
[2023-11-20 09:05] VITALS: BP 135/83; PULSE 73; RESP 20; O2SAT 100
--- NOTE | 2023-11-20 09:15 | ECG_ITS ---
Measurements Intervals [place] Rate: 69 P: -88 [place]: 187 QRS: -63 QRSD: 169 T: 37 QT: 404 QTc: 433 Interpretive Statements ECTOPIC ATRIAL RHYTHM RIGHT BUNDLE BRANCH BLOCK LEFT ANTERIOR FASCICULAR BLOCK BASELINE ARTIFACT- I, II, AVR, AVL, V4 ABNORMAL ECG COMPARED TO ECG 01/13/2023 06:45:59 NO SIGNIFICANT CHANGES Electronically Signed On 11-20-2023 11:06:54 MOONER by Robin Holloway D.O.
--- NOTE | 2023-11-20 09:19 | ED.GENADULT ---
HPI - General Adult General Chief complaint: Unspecified Stated complaint: constipation 2-3 months/near syncopal episode Time Seen by Provider: 11/20/23 09:04 History of Present Illness HPI narrative: 73-year-old male present to the emergency department for evaluation for multiple complaints. Patient states he has had longstanding issue with constipation for the last 2-3 months. Patient states he last had a bowel movement approximately 3 days ago. Patient states the last time he took a fiber supplement was also 3 days ago. Patient states he has not had follow-up with his primary care physician or GI for this issue. Patient states this morning when he was getting out of bed he had a episode of lightheaded and dizziness. Patient laid back down in bed and the symptoms resolved. Patient states in the mornings he typically has urgency to have bowel movement but this resolves. Related Data Allergies Allergy/AdvReac Type Severity Reaction Status Date / Time No Known Allergies Allergy Verified 11/20/23 09:05 Review of Systems Review of Systems: All systems reviewed & are unremarkable except as noted in HPI and below PMFSH Past Medical History Medical History Essential (primary) hypertension Primary osteoarthritis of right hip Surgical History Surgical History Status post total hip replacement, right Family History Family History Sibling Patient's sister is in good health Father Family history of malignant neoplasm Patient's father is Mother Family history of malignant neoplasm Patient's mother is Social History Social History Smoking status: Never smoker Additional smoking assessment comments: DENIES ANY FORM OF TOBACCO USE Alcohol intake: never Drinks per week: 6 Substance use: never Substance use type: does not use Lack of Transportation: No Lack of Food: Never True Current Housing: I Have Housing Concerned About Future Housing: No Difficulty Paying Gas/Electric Bills: No Difficulty Paying for Meds: No Currently Unemployed: No Education: High School Diploma/GED Difficulty w/ Childcare or Family Care: No Living arrangements: alone Occupation/Education: occupation Gender identity (if verbalized by the patient): Male Sexual Orientation (if Verbalized by the Patient): Straight or Heterosexual Spiritual care concerns: No Exam Narrative: APPEARANCE: Well appearing, no pain, no distress, well-nourished. HEAD: normocephalic, atraumatic. EYES: PERRLA/EOMI, conjunctivae clear. NOSE: Normal no drainage EARS:TMS clear with good light reflex. THROAT: Pharynx clear, no exudate. NECK: Supple. No adenopathy, no masses. RESPIRATORY: Airway patent, respirations nonlabored. Clear to auscultation bilaterally, no rales, rhonchi, wheezing. CARDIOVASCULAR: Regular rate and rhythm without murmurs rubs or gallops. ABDOMINAL: Soft, nontender, nondistended, normal bowel sounds MUSCULOSKELETAL: Moves all extremities. Strength/ROM intact, No edema, No calf tenderness. Rectal exam: Patient did not tolerate rectal exam NEURO: Alert. Cranial nerves II through XII intact. Good gait. Good coordination SKIN: Warm, dry. Normal Color Course Course Emergency Course: 73-year-old male presents emergency department for evaluation constipation. Patient did not tolerate the rectal exam. Patient was afebrile with no leukocytosis and a stable hemoglobin. No acute abnormalities on his CMP. Patient had a negative CT scan. Patient reports he does feel improved and patient was updated on the plan for treating his constipation and was encouraged to have close follow-up with his physicians. All questions concerns were addressed. Vital Signs Vital signs:
[2023-11-20 09:34] LABS: Basophils Percent Auto 0.4 % (0.2-1.2); Eosinophils Absolute Auto 0.2 K/mm3 (0-0.3); Eosinophils Percent Auto 2.9 % (0-4.4); Hematocrit 44.6 % (42.0-52.0); Hemoglobin 15.4 g/dL (14.0-18.0); Immature Granulocyte Absolute 0.01 K/mm3 (0.00-0.031); Immature Granulocyte Percent A 0.2 % (0-0.5); Lymphocytes Absolute Auto 1.06 K/mm3 (0.9-3.2); Lymphocytes Percent Auto 20.2 % (18.3-44.2); Mean Corpuscular HGB Conc 34.5 g/dl (32-36); Mean Corpuscular Hemoglobin 32.8 pg (26-34); Mean Corpuscular Volume 95.1 fl (80-100); Mean Platelet Volume 8.9 fl (7.4-10.4); Monocytes Absolute Auto 0.6 K/mm3 (0.1-0.6); Monocytes Percent Auto 11.5 % (2.6-8.5); Neutrophils Absolute Auto 3.4 K/mm3 (1.3-6.7); Neutrophils Percent Auto 64.8 % (45.5-73.1); Platelet Count Result 265 k/mm3 (150-375); Red Blood Count 4.69 M/mm3 (4.6-6.20); Red Cell Distribution Width 12.4 % (11.5-14.5); White Blood Count 5.2 K/mm3 (4.5-10.0)
[2023-11-20 09:51] LABS: Alanine Aminotransferase 25 U/L (6-50); Albumin Level 4.2 g/dL (3.5-5.1); Alkaline Phosphatase 60 U/L (38-126); Anion Gap 6 mmol/L (8-16); Aspartate Amino Transferase 38 U/L (17-59); Blood Urea Nitrogen 13 mg/dL (9-20); Calcium 9.2 mg/dL (8.4-10.2); Carbon Dioxide 24 mmol/L (22-30); Chloride 104 mmol/L (98-107); Estimated CRCL calculation 79 ml/min; Estimated Glomerular Filt Rate > 60; Glucose 97 mg/dL (65-110); Potassium 3.9 mmol/L (3.4-5.0); Sodium 134 mmol/L (137-145)
[2023-11-20 11:27] LABS: Appearance Urine Cloudy (Clear); Bacteria Urine None Seen /hpf; Bilirubin Urine Negative (Negative); Blood Urine Negative (Negative); Color Urine Yellow (Yellow); Glucose Urine UA Negative (Negative); Ketones Urine 1+ mg/dL (Negative); Leukocyte Esterase Ur Negative LEU/UL (Negative); Nitrate Urine Negative (Negative); Non Pathogenic Casts 0-2; Protein Urine Negative (Negative); RBC Urine 0-2 /hpf (0-2); Squamous Epithelial Cell Urine None seen /hpf (Few); Urobilinogen Urine 0.2 mg/dL (<2.0); WBC Urine 0-5 /hpf; pH Urine 7.5 (5.0-9.0)
[2023-11-20 11:35] LABS: Add Urine Microscopic? YES; Specific Grav Ur 1.042 (1.001-1.035)
[2023-11-20 11:54] LABS: Influenza A QL RT-PCR Negative (Negative); Influenza B QL RT-PCR Negative (Negative); RSV RNA, RT-PCR Negative (Negative); SARS-CoV-2 RNA PCR Negative (Negative)
[2023-11-20 12:07] VITALS: BP 134/75; PULSE 65; RESP 17; O2SAT 99
== END 2023-11-20 12:13 | disposition home or self-care (01) ==
PROVIDERS: Emergency Provider Emergency Medicine; PCP Nurse Practitioner Family
DX: K59.00 Constipation, unspecified (principal); R55 Syncope and collapse; Z20.822 Contact with and (suspected) exposure to COVID-19; I10 Essential (primary) hypertension; M16.11 Unilateral primary osteoarthritis, right hip; Z96.641 Presence of right artificial hip joint; I45.2 Bifascicular block
CPT/HCPCS: 36415; 74177; 80053; 81001; 83735; 84443; 85025; 87637; 93005; 99284; Q9967

== ENCOUNTER 2023-11-24 11:32 | Emergency (ER) | payer OTHER, SELFPAY ==
[2023-11-24 11:43] VITALS: BP 132/65; PULSE 74; RESP 16; TEMP 36.8; O2SAT 98
[2023-11-24 14:16] VITALS: RESP 20
--- NOTE | 2023-11-24 15:26 | ED.GENADULT ---
HPI - General Adult General Chief complaint: Unspecified Stated complaint: weakness in ED 4 days ago Time Seen by Provider: 11/24/23 14:34 History of Present Illness HPI narrative: Patient is a 73-year-old male with a history of hypertension presenting with constipation. States he was here several days ago and his workup was negative and he was sent home with MiraLax. States that he is taking it a couple times but he was not sure what time to take it every day. States that he has had a couple of bowel movements but he still feels constipated and bloated. Complains of diffuse abdominal pain. States this has been going on for 3 months. Also complains of intermittent bilateral lower extremity weakness since having COVID a year ago. No fevers, chest pain, shortness of breath, sore throat, nasal congestion. No nausea or vomiting, flank pain, dysuria. No prior abdominal surgeries. Related Data Allergies Allergy/AdvReac Type Severity Reaction Status Date / Time No Known Allergies Allergy Verified 11/24/23 14:14 Review of Systems Review of Systems: All systems reviewed & are unremarkable except as noted in HPI and below PMFSH Past Medical History Medical History Essential (primary) hypertension Primary osteoarthritis of right hip Surgical History Surgical History Status post total hip replacement, right Family History Family History Sibling Patient's sister is in good health Father Family history of malignant neoplasm Patient's father is Mother Family history of malignant neoplasm Patient's mother is Social History Social History Smoking status: Never smoker Additional smoking assessment comments: DENIES ANY FORM OF TOBACCO USE Alcohol intake: never Drinks per week: 6 Substance use: never Substance use type: does not use Lack of Transportation: No Lack of Food: Never True Current Housing: I Have Housing Concerned About Future Housing: No Difficulty Paying Gas/Electric Bills: No Difficulty Paying for Meds: No Currently Unemployed: No Education: High School Diploma/GED Difficulty w/ Childcare or Family Care: No Living arrangements: alone Occupation/Education: occupation Gender identity (if verbalized by the patient): Male Sexual Orientation (if Verbalized by the Patient): Straight or Heterosexual Spiritual care concerns: No Exam Narrative: GENERAL: Nontoxic, no acute distress, flat affect HEAD: Normocephalic, atraumatic. EYES: PERRLA and EOMI. ENT: Nares clear, no rhinorrhea or epistaxis. Mucous membranes moist. NECK: Supple. CHEST: Clear to auscultation. No respiratory distress. HEART: Regular rate and rhythm. ABDOMEN: Soft, nontender, nondistended; no abdominal tenderness EXTREMITIES: Normal range of motion. SKIN: Warm, dry, no rash. NEURO: No focal deficits. Alert and oriented x3. PSYCH: flat affect Course Vital Signs Vital signs: Vital Signs Temperature 98.3 F 11/24/23 11:43 Pulse Rate 74 11/24/23 11:43 Respiratory Rate 16 11/24/23 11:43 Blood Pressure 132/65 11/24/23 11:43 Pulse Oximetry 98 11/24/23 11:43 Oxygen Delivery Room Air 11/24/23 11:43 Temperature 98.3 F 11/24/23 11:43 Pulse Rate 67 11/24/23 17:33 Respiratory Rate 14 11/24/23 17:33 Blood Pressure 137/62 11/24/23 17:33 Pulse Oximetry 100 11/24/23 17:33 Oxygen Delivery Room Air 11/24/23 11:43 Medical Decision Making MDM Narrative Medical decision making narrative: 73-year-old male presenting with constipation and abdominal bloating.Vitals are stable. Exam is unremarkable. Abdomen is soft, nontender. He had an unremarkable CT scan approximately 4 days ago.
[2023-11-24 15:57] VITALS: BP 141/65; PULSE 68; RESP 17; O2SAT 98
[2023-11-24 15:58] VITALS: PULSE 68
[2023-11-24 16:00] LABS: Basophils Percent Auto 0.3 % (0.2-1.2); Eosinophils Absolute Auto 0.2 K/mm3 (0-0.3); Eosinophils Percent Auto 2.6 % (0-4.4); Hematocrit 41.7 % (42.0-52.0); Immature Granulocyte Absolute 0.01 K/mm3 (0.00-0.031); Immature Granulocyte Percent A 0.1 % (0-0.5); Lymphocytes Absolute Auto 1.31 K/mm3 (0.9-3.2); Lymphocytes Percent Auto 18.6 % (18.3-44.2); Mean Corpuscular HGB Conc 33.6 g/dl (32-36); Mean Corpuscular Hemoglobin 32.6 pg (26-34); Mean Platelet Volume 8.9 fl (7.4-10.4); Monocytes Absolute Auto 0.8 K/mm3 (0.1-0.6); Monocytes Percent Auto 10.8 % (2.6-8.5); Neutrophils Absolute Auto 4.8 K/mm3 (1.3-6.7); Neutrophils Percent Auto 67.6 % (45.5-73.1); Platelet Count Result 245 k/mm3 (150-375); Red Cell Distribution Width 12.4 % (11.5-14.5); White Blood Count 7.1 K/mm3 (4.5-10.0)
[2023-11-24 16:01] LABS: Appearance Urine Clear (Clear); Bilirubin Urine Negative (Negative); Blood Urine Negative (Negative); Color Urine Yellow (Yellow); Glucose Urine UA Negative (Negative); Ketones Urine Negative (Negative); Leukocyte Esterase Ur Negative LEU/UL (Negative); Nitrate Urine Negative (Negative); Protein Urine Negative (Negative); Specific Grav Ur 1.016 (1.001-1.035); pH Urine 7.5 (5.0-9.0)
[2023-11-24] MEDS: SODIUM CHLORIDE 0.9% IV 1,000 ML 999 ML IV CONT (16:01)
[2023-11-24 16:03] LABS: Add Urine Microscopic? NO
[2023-11-24 16:11] LABS: Alanine Aminotransferase 25 U/L (6-50); Albumin Level 4.1 g/dL (3.5-5.1); Alkaline Phosphatase 67 U/L (38-126); Anion Gap 8 mmol/L (8-16); Aspartate Amino Transferase 33 U/L (17-59); Bilirubin,Total 0.9 mg/dL (0.2-1.3); Blood Urea Nitrogen 11 mg/dL (9-20); Calcium 8.8 mg/dL (8.4-10.2); Carbon Dioxide 22 mmol/L (22-30); Chloride 105 mmol/L (98-107); Estimated CRCL calculation 79 ml/min; Estimated Glomerular Filt Rate > 60; Glucose 86 mg/dL (65-110); Lipase 64 U/L (23-300); Potassium 3.7 mmol/L (3.4-5.0); Sodium 135 mmol/L (137-145)
[2023-11-24 17:33] VITALS: BP 137/62; PULSE 67; RESP 14; O2SAT 100
== END 2023-11-24 17:35 | disposition home or self-care (01) ==
PROVIDERS: Emergency Provider Emergency Medicine; PCP Nurse Practitioner Family
DX: K59.00 Constipation, unspecified (principal); I10 Essential (primary) hypertension; M16.11 Unilateral primary osteoarthritis, right hip; Z96.641 Presence of right artificial hip joint; Z86.16 Personal history of COVID-19
CPT/HCPCS: 36415; 80053; 81003; 83690; 85025; 96360; 99284; J7030

== ENCOUNTER 2023-12-11 05:32 | Emergency (ER) | payer OTHER, SELFPAY ==
--- NOTE | ~2023-12-11 | XR_ITS ---
EXAMINATION: XR chest 2V DATE: 12/11/2023 07:07 INDICATION: Shortness of breath TECHNIQUE: PA and lateral views of the chest are obtained. COMPARISON: 01/24/2023 FINDINGS: The lungs are free of acute opacities. No pleural effusion or pneumothorax. The cardiomedia stinal silhouette is normal. There are bridging osteophytes at multiple levels in the spine, consiste nt with diffuse idiopathic skeletal hyperostosis (DISH). IMPRESSION: 1. No acute cardiopulmonary abnormality. Reviewed, dictated and finalized at location F. EKEEPER/LAUNDRY ASSISTANT
[2023-12-11 05:27] VITALS: BP 128/87; PULSE 81; RESP 19; TEMP 36.2; O2SAT 100
--- NOTE | 2023-12-11 05:34 | ECG_ITS ---
Measurements Intervals [place] Rate: 74 P: 256 [place]: 215 QRS: -56 QRSD: 169 T: 34 QT: 405 QTc: 451 Interpretive Statements ECTOPIC ATRIAL RHYTHM WITH FIRST DEGREE AV BLOCK RIGHT BUNDLE BRANCH BLOCK LEFT ANTERIOR FASCICULAR BLOCK Electronically Signed On 12-11-2023 11:40:36 TRAVEL PT by Steven Lockwood M.D.
[2023-12-11 05:36] VITALS: PULSE 73; O2SAT 99
[2023-12-11 05:55] LABS: Basophils Percent Auto 0.6 % (0.2-1.2); Eosinophils Absolute Auto 0.3 K/mm3 (0-0.3); Eosinophils Percent Auto 5.6 % (0-4.4); Hematocrit 39.7 % (42.0-52.0); Hemoglobin 13.7 g/dL (14.0-18.0); Immature Granulocyte Absolute 0.01 K/mm3 (0.00-0.031); Immature Granulocyte Percent A 0.2 % (0-0.5); Lymphocytes Absolute Auto 1.21 K/mm3 (0.9-3.2); Lymphocytes Percent Auto 23.4 % (18.3-44.2); Mean Corpuscular HGB Conc 34.5 g/dl (32-36); Mean Corpuscular Hemoglobin 32.6 pg (26-34); Mean Corpuscular Volume 94.5 fl (80-100); Mean Platelet Volume 8.6 fl (7.4-10.4); Monocytes Absolute Auto 0.7 K/mm3 (0.1-0.6); Monocytes Percent Auto 13.3 % (2.6-8.5); Neutrophils Percent Auto 56.9 % (45.5-73.1); Platelet Count Result 272 k/mm3 (150-375); Red Cell Distribution Width 12.4 % (11.5-14.5); White Blood Count 5.2 K/mm3 (4.5-10.0)
[2023-12-11 06:05] LABS: Alanine Aminotransferase 26 U/L (6-50); Alkaline Phosphatase 89 U/L (38-126); Anion Gap 7 mmol/L (8-16); Aspartate Amino Transferase 39 U/L (17-59); Bilirubin,Total 0.5 mg/dL (0.2-1.3); Blood Urea Nitrogen 11 mg/dL (9-20); Calcium 8.9 mg/dL (8.4-10.2); Carbon Dioxide 23 mmol/L (22-30); Chloride 103 mmol/L (98-107); Estimated CRCL calculation 79 ml/min; Estimated Glomerular Filt Rate > 60; Glucose 105 mg/dL (65-110); Potassium 4.1 mmol/L (3.4-5.0); Sodium 133 mmol/L (137-145)
[2023-12-11 06:05] LABS: Lipase 65 U/L (23-300); Magnesium 2.1 mg/dL (1.6-2.3)
[2023-12-11 06:06] LABS: Lactic Acid Reflex 0.7 mmol/L (0.7-2.0)
[2023-12-11 06:07] LABS: Partial Thromboplastin Time 32.8 SECONDS (22.3-36.8); Prothrombin Time 13.4 Seconds (11.1-14.7)
[2023-12-11 06:13] LABS: Alveolar/Arterial O2 Gradient 23.4 mmHg; Base Excess ABG -2.7 mEq/l (+/-2.0); Fractional Inspired Oxygen 21 %; HCO3 ABG 21.4 mEq/l (22.0-26.0); Oxygen Content ABG 19.1 %vol (16.0-22.0); Oxygen Saturation ABG 96.4 % (95.0-100.0); Oxyhemoglobin 95.2 % THb (90.0-100.0); PCO2 ABG 35.1 mmHg (35.0-45.0); PO2 ABG 84.3 mmHg (80.0-100.0); PO2 FiO2 Ratio Arterial Blood 4.01 %; Total Hemoglobin 14.2 g/dL (12.0-18.0); pH ABG 7.403 (7.350-7.450)
[2023-12-11 06:14] LABS: Modified Allen's Test Pass; Site Drawn LEFT RADIAL
[2023-12-11 06:17] LABS: NT Pro B Type Natriuretic Pept 198 pg/mL (19.9-100); Troponin I 0.023 ng/mL (0.000-0.034)
[2023-12-11 06:32] LABS: Influenza A QL RT-PCR Negative (Negative); Influenza B QL RT-PCR Negative (Negative); RSV RNA, RT-PCR Negative (Negative); SARS-CoV-2 RNA PCR Negative (Negative)
[2023-12-11 06:44] LABS: Procalcitonin 0.1 ng/mL
--- NOTE | 2023-12-11 07:24 | ED.GENADULT ---
HPI - General Adult General Chief complaint: Shortness of Breath/Dyspnea Stated complaint: SOB, NEW AFIB Time Seen by Provider: 12/11/23 06:52 History of Present Illness HPI narrative: 73-year-old male presenting emergency department by EMS for evaluation of shortness of breath. Patient states shortly after he woke up he had onset of dry mouth and had some shortness of breath. Patient states symptoms only lasted a few minutes. When EMS arrived he was placed on 3 L for comfort. Upon arrival to the emergency department patient states that his symptoms had resolved. At time of evaluation patient denies any complaints. Patient states he had no chest pain associated with this had no heart palpitations, patient denies any associated nausea vomiting diarrhea. Patient states he is back to his baseline and is requesting discharge to home. Patient declined a repeat troponin declined a workup for pulmonary embolism. Related Data Allergies Allergy/AdvReac Type Severity Reaction Status Date / Time No Known Allergies Allergy Verified 11/24/23 14:14 Review of Systems Review of Systems: All systems reviewed & are unremarkable except as noted in HPI and below PMFSH Past Medical History Medical History Essential (primary) hypertension Primary osteoarthritis of right hip Surgical History Surgical History Status post total hip replacement, right Family History Family History Sibling Patient's sister is in good health Father Family history of malignant neoplasm Patient's father is Mother Family history of malignant neoplasm Patient's mother is Social History Social History Smoking status: Never smoker Additional smoking assessment comments: DENIES ANY FORM OF TOBACCO USE Alcohol intake: never Drinks per week: 6 Substance use: never Substance use type: does not use Lack of Transportation: No Lack of Food: Never True Current Housing: I Have Housing Concerned About Future Housing: No Difficulty Paying Gas/Electric Bills: No Difficulty Paying for Meds: No Currently Unemployed: No Education: High School Diploma/GED Difficulty w/ Childcare or Family Care: No Living arrangements: alone Occupation/Education: occupation Gender identity (if verbalized by the patient): Male Sexual Orientation (if Verbalized by the Patient): Straight or Heterosexual Spiritual care concerns: No Exam Narrative: APPEARANCE: Well appearing, no pain, no distress, well-nourished. HEAD: normocephalic, atraumatic. EYES: PERRLA/EOMI, conjunctivae clear. NOSE: Normal no drainage NECK: Supple. No adenopathy, no masses. RESPIRATORY: Airway patent, respirations nonlabored. Clear to auscultation bilaterally, no rales, rhonchi, wheezing. CARDIOVASCULAR: Regular rate and rhythm without murmurs rubs or gallops. ABDOMINAL: Soft, nontender, nondistended, normal bowel sounds MUSCULOSKELETAL: Moves all extremities. Strength/ROM intact, No edema, No calf tenderness. NEURO: Alert. Cranial nerves II through XII intact. Grossly intact SKIN: Warm, dry. Normal Color Course Course Emergency Course: 73-year-old male with multiple recent visits to the emergency department for evaluation after having an episode shortness of breath. Patient is afebrile the leukocytosis and a stable hemoglobin of 13.7 patient's INR is 1.0 no significant abnormalities on the ABG in no acute changes for the patient's CMP. Patient's troponin was negative. Patient was negative for influenza RSV and for COVID. I discussed further workup such as a repeat troponin and a CTA pulmonary embolism scan and patient states he feels better and patient is declining additional workup and states he wa
== END 2023-12-11 08:03 | disposition home or self-care (01) ==
LOC: ANHED 07:54
PROVIDERS: Emergency Medicine; Emergency Provider Emergency Medicine; PCP Nurse Practitioner Family
DX: R06.02 Shortness of breath (principal); Z20.822 Contact with and (suspected) exposure to COVID-19; I10 Essential (primary) hypertension; M16.11 Unilateral primary osteoarthritis, right hip; Z96.641 Presence of right artificial hip joint; I44.0 Atrioventricular block, first degree; I45.10 Unspecified right bundle-branch block
CPT/HCPCS: 36415; 36600; 71046; 80053; 82805; 83605; 83690; 83735; 83880; 84145; 84484; 85025; 85610; 85730; 87637; 93005; 99284

== ENCOUNTER 2024-01-16 11:18 | Outpatient (CLI) | payer OTHER, SELFPAY ==
[2024-01-16 13:04] LABS: Basophils Percent Auto 0.3 % (0.2-1.2); Eosinophils Absolute Auto 0.2 K/mm3 (0-0.3); Eosinophils Percent Auto 2.2 % (0-4.4); Hematocrit 37.6 % (42.0-52.0); Hemoglobin 12.4 g/dL (14.0-18.0); Immature Granulocyte Absolute 0.03 K/mm3 (0.00-0.031); Immature Granulocyte Percent A 0.3 % (0-0.5); Lymphocytes Absolute Auto 1.18 K/mm3 (0.9-3.2); Lymphocytes Percent Auto 12.8 % (18.3-44.2); Mean Corpuscular Hemoglobin 32.8 pg (26-34); Mean Corpuscular Volume 99.5 fl (80-100); Mean Platelet Volume 10.4 fl (7.4-10.4); Monocytes Absolute Auto 1.1 K/mm3 (0.1-0.6); Monocytes Percent Auto 11.4 % (2.6-8.5); Neutrophils Absolute Auto 6.7 K/mm3 (1.3-6.7); Platelet Count Result 228 k/mm3 (150-375); Red Blood Count 3.78 M/mm3 (4.6-6.20); Red Cell Distribution Width 13.2 % (11.5-14.5); White Blood Count 9.2 K/mm3 (4.5-10.0)
[2024-01-16 13:45] LABS: Free T4 Free Thyroxine 1.77 ng/mL (0.78-2.19)
[2024-01-16 14:36] LABS: Alanine Aminotransferase 27 U/L (6-50); Albumin Level 3.7 g/dL (3.5-5.1); Alkaline Phosphatase 70 U/L (38-126); Anion Gap 5 mmol/L (8-16); Aspartate Amino Transferase 43 U/L (17-59); Bilirubin,Total 0.7 mg/dL (0.2-1.3); Blood Urea Nitrogen 13 mg/dL (9-20); Calcium 8.7 mg/dL (8.4-10.2); Carbon Dioxide 24 mmol/L (22-30); Chloride 101 mmol/L (98-107); Estimated Glomerular Filt Rate > 60; Glucose 100 mg/dL (65-110); Magnesium 2.2 mg/dL (1.6-2.3); Potassium 4.2 mmol/L (3.4-5.0); Sodium 130 mmol/L (137-145)
[2024-01-16 15:19] LABS: Prostate Specific Antigen 1.4 ng/mL (< OR = 4.0)
== END 2024-01-16 11:19 | disposition home or self-care (01) ==
LOC: ANHWCLAB 11:18
PROVIDERS: PCP Nurse Practitioner Family; Visit Provider Nurse Practitioner Family
DX: K59.00 Constipation, unspecified (principal); I10 Essential (primary) hypertension; R53.83 Other fatigue; R00.1 Bradycardia, unspecified; N13.8 Other obstructive and reflux uropathy; N40.1 Benign prostatic hyperplasia with lower urinary tract symptoms; R06.02 Shortness of breath; Z12.5 Encounter for screening for malignant neoplasm of prostate
CPT/HCPCS: 36415; 80053; 83735; 84153; 84439; 84443; 85025; G0103

== ENCOUNTER 2024-10-18 13:11 | Outpatient (CLI) | payer OTHER, SELFPAY ==
[2024-10-18 14:04] LABS: Basophils Percent Auto 0.2 % (0.2-1.2); Eosinophils Percent Auto 0.2 % (0-4.4); Hematocrit 39.9 % (42.0-52.0); Hemoglobin 13.5 g/dL (14.0-18.0); Immature Granulocyte Absolute 0.04 K/mm3 (0.00-0.031); Immature Granulocyte Percent A 0.3 % (0-0.5); Lymphocytes Absolute Auto 1.67 K/mm3 (0.9-3.2); Lymphocytes Percent Auto 13.2 % (18.3-44.2); Mean Corpuscular HGB Conc 33.8 g/dl (32-36); Mean Corpuscular Hemoglobin 32.8 pg (26-34); Mean Corpuscular Volume 96.8 fl (80-100); Mean Platelet Volume 10.1 fl (7.4-10.4); Monocytes Absolute Auto 1.3 K/mm3 (0.1-0.6); Monocytes Percent Auto 10.5 % (2.6-8.5); Neutrophils Absolute Auto 9.5 K/mm3 (1.3-6.7); Neutrophils Percent Auto 75.6 % (45.5-73.1); Platelet Count Result 251 k/mm3 (150-375); Red Blood Count 4.12 M/mm3 (4.6-6.20); Red Cell Distribution Width 13.2 % (11.5-14.5); White Blood Count 12.6 K/mm3 (4.5-10.0)
[2024-10-18 14:12] LABS: Alanine Aminotransferase 18 U/L (6-50); Alkaline Phosphatase 77 U/L (38-126); Anion Gap 3 mmol/L (4-12); Aspartate Amino Transferase 26 U/L (17-59); Bilirubin,Total 0.7 mg/dL (0.2-1.3); Blood Urea Nitrogen 20 mg/dL (9-20); Carbon Dioxide 26 mmol/L (22-30); Chloride 110 mmol/L (98-107); Cholesterol 185 mg/dL (0-200); Estimated Glomerular Filt Rate > 60; Glucose 97 mg/dL (65-110); HDL Direct 63 mg/dL; Potassium 3.8 mmol/L (3.4-5.0); Sodium 139 mmol/L (137-145); Triglycerides 68 mg/dL (<150)
[2024-10-18 14:23] LABS: LDL Cholesterol Direct 93 mg/dL
[2024-10-18 15:18] LABS: Folic Acid 6.7 ng/mL (2.76->20); Vitamin B12 < 159.0 pg/mL (239-931)
[2024-10-18 18:22] LABS: Hemoglobin A1C 5.5 % (<5.7)
[2024-10-23 09:27] LABS: Vitamin B1 11 nmol/L (8-30)
[2024-10-24 13:43] LABS: Vitamin B2 13.4 nmol/L (6.2-39.0)
== END 2024-10-18 13:12 | disposition home or self-care (01) ==
LOC: ANHLAB 13:12
PROVIDERS: PCP Nurse Practitioner Family; Visit Provider Nurse Practitioner Family
DX: N40.1 Benign prostatic hyperplasia with lower urinary tract symptoms (principal); N13.8 Other obstructive and reflux uropathy; R73.9 Hyperglycemia, unspecified; I10 Essential (primary) hypertension; E78.5 Hyperlipidemia, unspecified; Z13.6 Encounter for screening for cardiovascular disorders; R20.0 Anesthesia of skin
CPT/HCPCS: 36415; 80053; 80061; 82607; 82746; 83036; 84207; 84252; 84425; 85025

== ENCOUNTER 2024-10-30 07:31 | Emergency (ER) | payer OTHER, SELFPAY ==
--- NOTE | ~2024-10-30 | CT_ITS ---
EXAMINATION: CT brain wo con DATE: 10/30/2024 08:24 INDICATION: Left-sided paresthesia. TECHNIQUE: Computed tomography (CT) of the head was performed without intravenous contrast. The mA wa s adjusted according to patient size. Iterative reconstruction technique was employed. The dose-lengt h product was 605.33 mGy-cm. COMPARISON: None FINDINGS: There are scattered areas of low attenuation in the cerebral white matter, which is within normal limits for the patient's age. There is no intracranial hemorrhage, acute infarction, or abnorm al intracranial mass lesion. The ventricles are normal in size. There is mild mucosal thickening in t he paranasal sinuses. The orbits are normal. The mastoid air cells are normal. IMPRESSION: 1. Normal aging brain. Reviewed, dictated and finalized at location A. CAL RECORDS ANALYST IMPRESSION: 1. Normal aging brain.
--- NOTE | ~2024-10-30 | CT_ITS ---
EXAMINATION: CTA chest abdomen pelvis DATE: 10/30/2024 08:24 INDICATION: Pain and left-sided paresthesias. TECHNIQUE: Computed tomographic angiography (CTA) of the chest, abdomen, and pelvis was performed wit h 100 mL Omnipaque-350 intravenous contrast. Automated exposure control and iterative reconstruction technique were employed. The dose-length product was 655.09 mGy-cm. Maximum intensity projection 3D-r econstructions of the aorta and other arteries were constructed by the technologist on a separate wor kstation. COMPARISON: CT abdomen and pelvis 11/20/2023 FINDINGS: CHEST CTA: There is mild dependent atelectasis bilaterally. There is mild scarring in the right lower lobe. No p leural effusion. There is mucous in the trachea. Cardiomegaly is normal. No pericardial effusion. The re are coronary artery calcifications. There is no pulmonary embolus. There is mild aortic atheroscle rosis. No aneurysm or dissection. There is severe cervical spondylosis and mild thoracic spondylosis. ABDOMEN AND PELVIS CTA: The liver, gallbladder, spleen, pancreas, and adrenal glands are normal. There is cortical thinning o f the kidneys. The prostate is moderately enlarged. There is diverticulosis of the colon without evid ence of diverticulitis. The appendix is normal. There are no dilated loops of bowel. There are no pat hologically enlarged lymph nodes. There is no free intraperitoneal fluid. There is a left inguinal he rnia containing fat. There is calcified atherosclerosis of the aorta and many of the other arteries. There is no significant stenosis of celiac axis, superior mesenteric artery, the renal arteries, or i nferior mesenteric artery. There is a total right hip arthroplasty. There is severe lumbar spondylosi s. IMPRESSION: 1. Mild aortic atherosclerosis. No aneurysm or dissection. Reviewed, dictated and finalized at location A. ENTIONAL MORTGAGE UNDERWRITER
[2024-10-30 06:42] VITALS: BP 147/84; PULSE 80; RESP 17; O2SAT 99
--- NOTE | 2024-10-30 06:48 | ECG_ITS ---
Test Date: 2024-10-30 06:50:30 Measurements Intervals [place] Rate: 73 P: -24 [place]: 190 QRS: -62 QRSD: 162 T: 64 QT: 417 QTc: 463 Interpretive Statements SINUS RHYTHM RIGHT BUNDLE BRANCH BLOCK [120+ ms QRS DURATION, UPRIGHT V1, 40+ ms S IN I/aVL/V4/V5/V6] LEFT ANTERIOR FASCICULAR BLOCK [QRS AXIS <= -45, QR IN I, RS IN II] MODERATE VOLTAGE CRITERIA FOR LVH, CONSIDER NORMAL VARIANT [MEETS CRITERIA IN ONE OF: R(aVL), S(V1), R(V5), R(V5/V6)+S(V1)] No previous ECG available for comparison Electronically Signed On 10-30-2024 14:52:16 STAFF MIDWIFE/APPRENTICESHIP DIRECTOR by Chuck Yeager M.D.
[2024-10-30 06:49] VITALS: PULSE 75; O2SAT 97
--- NOTE | 2024-10-30 07:21 | ED_ITS ---
HPI - Arrhythmia/Palpitations General Chief Complaint: Arrhythmia/Palpitations Stated Complaint: leg numbness, low heart rate History of Present Illness HPI narrative: 74-year-old male with a past medical history including first-degree heart block, chronic bradycardia in the 40s, hyperlipidemia, BPH, hypertension. Today patient presents via EMS for concerns of left lower extremity numbness. He states that has been intermittent in nature and onset 1 week prior. He saw his primary care provider for same issue on the and was prescribed methylprednisolone in addition to his Naprosyn for concerns of lumbar radiculopathy. Patient has also been seen by his primary care provider previously for bradycardia in 30s to 40s without concern and no referrals to Cardiology given that he is asymptomatic. Today patient presents with concerns at his left lower extremity numbness is distal to his knee, feels like pins and needles sensation that is painful. Sensation is been ongoing for 1 week. Previously has been also complaining of some intermittent groin pain without any hernias or injury. He states he had an episode of sudden onset difficulty breathing associated with the numbness which is prompting him to call EMS for assistance they. Patient is a very poor historian at baseline and difficult to speak with, alert oriented but not able to give me salient details of his medical care or characterize his symptoms very well requiring frequently asking the same questions. Related Data Allergies Allergy/AdvReac Type Severity Reaction Status Date / Time No Known Allergies Allergy Verified 10/30/24 07:18 Review of Systems 2 Review of Systems: As reviewed above in HPI [facility] Past Medical History Medical History Primary osteoarthritis of right hip Essential (primary) hypertension Surgical History Surgical History Status post total hip replacement, right Family History Family History Sibling Patient's sister is in good health Father Family history of malignant neoplasm Patient's father is Mother Family history of malignant neoplasm Patient's mother is Social History Social History Smoking status: Never smoker Additional smoking assessment comments: DENIES ANY FORM OF TOBACCO USE Alcohol intake: never Drinks per week: 6 Substance use: never Substance use type: does not use Lack of Transportation: No Lack of Food: Never True Current Housing: I Have Housing Concerned About Future Housing: No Difficulty Paying Gas/Electric Bills: No Difficulty Paying for Meds: No Currently Unemployed: No Education: High School Diploma/GED Difficulty w/ Childcare or Family Care: No Living arrangements: alone Occupation/Education: occupation Gender identity (if verbalized by the patient): Male Sexual Orientation (if Verbalized by the Patient): Straight or Heterosexual Spiritual care concerns: No Agree to blood products: Yes Exam 2 Narrative: GENERAL: Uncomfortable appearing with not any acute distress, complaining of left foot ?pins and needles and numbness ? HEAD: [Normocephalic, atraumatic.] EYES: [PERRLA and EOMI.] ENT: Nares clear, no rhinorrhea or epistaxis. Mucous membranes moist. NECK: Supple. CHEST: [Clear to auscultation. No respiratory distress.] HEART: [Regular rate and rhythm]. No murmur heard. 2+ pulses, strong symmetric dorsalis pedis, warm well-perfused extremities, 2+ bilateral radial pulses. ABDOMEN: [Soft, nondistended], [nontender], [No rigidity or guarding] EXTREMITIES: Normal range of motion. [No edema.] SKIN: Warm, dry, no rash. NEURO: No focal motor deficits with full strength at the EHL and FHL, full strength with hip and knee flexion, full flexion and extension of the upper extremities. Sensation grossly intact, able to feel bilateral lower extremities but states that the left one distal to the knee has paresthesias in it compared to the right which has milder paresthesias. No facial asymmetries, awake alert oriented PSYCH: [Normal mood and affect.] Course Vital Signs Vital signs: Vital Signs Pulse Rate 80 10/30/24 06:42 Respiratory Rate 17 10/30/24 06:42 Blood Pressure 147/84 H 10/30/24 06:42 Pulse Oximetry 99 10/30/24 06:42 Oxygen Delivery Room Air 10/30/24 06:42 Pulse Rate 50 L 10/30/24 07:30 Respiratory Rate 16 10/30/24 07:30 Blood Pressure 154/60 H 10/30/24 07:30 Pulse Oximetry 97 10/30/24 07:30 Oxygen Delivery Room Air 10/30/24 06:49 MDM - Arrhythmia/Palpitations MDM Narrative Medical decision making narrative: 74-year-old male presenting with vague paresthesia pain in the left lower extremity distal to the knee. Ongoing for 1 week. He has a history of asymptomatic bradycardia with first-degree block, hypertension, hyperlipidemia. Patient is very poor historian difficult to speak with but is awake alert oriented. He is complaining of left leg paresthesias that started several weeks ago after reviewing his note from his primary care provider for same issue. He was given steroids and Naprosyn without any improvement in his symptoms. Today he had experienced episode of very brief difficulty in breathing associated with paresthesias and he came by ambulance for evaluation. Presently patient does appear uncomfortable and complaining of paresthesias left leg but is able to move his leg and has full strength throughout both arms and legs. 2+ peripheral pulses throughout. Vital signs with stable hypertension, pulse in the 80s, 99% on room air. Patient also has been complaining of some intermittent groin pain without any evidence of hernia or trauma. All in all patient's presentation is unclear at this time and could be related to potential vascular versus intracranial pathology versus transient paresthesias secondary to his arthritis. Given patient's uncomfortable appearance and complaints that he had difficulty breathing as well as the right groin pain and left-sided paresthesias considerations for vascular insult are slightly higher so we ended up doing CT angiography of his chest abdomen pelvis to rule out dissection although very unlikely given his presentation. Head CT obtained to rule out stroke, laboratory assessments, EKG and CBC CMP and troponin. Patient workup reveals an elevated troponin, unremarkable CT head, unremarkable CT angiography. Patient was re-evaluated had complete resolution of his paresthesias. This was without any intervention and consistent with his complaints that his paresthesias have been intermittent in nature without any provoking symptoms. I spoke to patient's primary care provider over the phone as they called the ER to inform me that patient is very noncompliant at baseline and they would like him admitted to the hospital. I did concur with this especially with his elevated troponin and baseline bradycardia that needs to be evaluated by Cardiology. I went and spoke with the patient regarding plan of care to admit him to the hospital and patient was adamantly refusing admission at this time. He states he does not want to stay in the hospital during the holidays. I went over the risks and benefits of not complying with medical advice at this time including , disability, heart attack, sudden cardiac arrest. Patient again reiterated expressing understanding the risks and stated he will return if he has any recurrence or progressive symptoms. Patient is awake alert oriented, able to make his own medical decisions. Patient signed AMA forms at this time and was released from the ED. Medical Records Attestation: I reviewed the patient's medical records. Lab Data Attestation: I reviewed the patient's lab results. 10/30/24 06:57 10/30/24 06:57 Labs: Lab Results 10/30/24 Range/Units 06:57 WBC 5.3 (4.5-10.0) K/mm3 RBC 4.53 L (4.6-6.20) M/mm3 Hgb 14.7 (14.0-18.0) g/dL Hct 42.7 (42.0-52.0) % MCV 94.3 (80-100) fl MCH 32.5 (26-34) pg MCHC 34.4 (32-36) g/dl RDW 12.7 (11.5-14.5) % Plt Count 222 (150-375) k/mm3 MPV 10.1 (7.4-10.4) fl Immature Gran % (Auto) 0.2 (0-0.5) % Neut % (Auto) 59.2 (45.5-73.1) % Lymph % (Auto) 22.7 (18.3-44.2) % Emanuel % (Auto) 11.4 H (2.6-8.5) % Eos % (Auto) 6.1 H (0-4.4) % Baso % (Auto) 0.4 (0.2-1.2) % Lymph # (Auto) 1.20 (0.9-3.2) K/mm3 Emanuel # (Auto) 0.6 (0.1-0.6) K/mm3 Eos # (Auto) 0.3 (0-0.3) K/mm3 Baso # (Auto) 0.0 (0.0-0.1) K/mm3 Abs Immat Gran (auto) 0.01 (0.00-0.031) K/mm3 Absolute Neuts (auto) 3.1 (1.3-6.7) K/mm3 Absolute Nucleated RBC 0.000 (0.0-0.012) K/mm3 Nucleated RBC % 0.0 (0.0-0.2) % PT 15.2 H (11.1-14.7) Seconds INR 1.2 APTT 31.1 (22.3-36.8) Seconds Sodium 137 (137-145) mmol/L Potassium 3.9 (3.4-5.0) mmol/L Chloride 108 H (98-107) mmol/L Carbon Dioxide 28 (22-30) mmol/L Anion Gap 1 L (4-12) mmol/L BUN 15 D (9-20) mg/dL Creatinine 1.00 (0.7-1.3) mg/dL Estim Creat Clear Calc 54 ml/min Estimated GFR > 60 (59 - ) Glucose 96 (65-110) mg/dL Calcium 8.9 (8.4-10.2) mg/dL Total Bilirubin 0.8 (0.2-1.3) mg/dL AST 28 (17-59) U/L ALT 17 (6-50) U/L Alkaline Phosphatase 59 (38-126) U/L Troponin I 0.040 H* (0.000-0.034) ng/mL Total Protein 7.0 (6.3-8.2) g/dL Albumin 3.9 (3.5-5.1) g/dL Imaging Data Attestation: I personally reviewed and interpreted this imaging study as follows: My impression: Impressions Head CT 10/30/24 08:26 IMPRESSION: 1. Normal aging brain. Chest/Abdomen/Pelvis CTA 10/30/24 08:28 IMPRESSION: 1. Mild aortic atherosclerosis. No aneurysm or dissection. Critical Care Time Critical Care Time Critical Care Time: Yes Total Critical Care Time: 35 Discharge Plan Discharge Clinical Impression: Elevated troponin, Sinus bradycardia, chronic, Left leg paresthesias, Left against medical advice Patient Disposition: Left Against Medical Advice Condition: Stable Additional Instructions: As we discussed today my recommendations are for you to be admitted to the hospital to be evaluated by Cardiology regarding your bradycardia and elevated heart enzyme levels. Risks of not staying in the hospital include , disability, heart attack, or sudden cardiac . Return to the emergency department for evaluation at any point. Patient Language: Surinamese Prescriptions: No Action naproxen 500 mg tablet 500 mg PO BID Qty: 180 1RF methylprednisolone [Medrol (Jim)] 4 mg tablets,dose pack See Rx Instructions PO PER PKG DIR Qty: 21 0RF Rx Instructions: PO PER PKG DIR amlodipine 10 mg tablet See Rx Instructions .ROUTE .COMPLEX Qty: 90 1RF Dose Instruction: TAKE 1 TABLET BY MOUTH EVERY DAY Rx Instructions: TAKE 1 TABLET BY MOUTH EVERY DAY lisinopril 40 mg tablet See Rx Instructions .ROUTE .COMPLEX Qty: 90 1RF Dose Instruction: TAKE 1 TABLET BY MOUTH EVERY DAY Rx Instructions: TAKE 1 TABLET BY MOUTH EVERY DAY hydrochlorothiazide 12.5 mg tablet See Rx Instructions .ROUTE .COMPLEX Qty: 90 1RF Dose Instruction: TAKE 1 TABLET BY MOUTH EVERY DAY Rx Instructions: TAKE 1 TABLET BY MOUTH EVERY DAY Follow-up/Referrals: Anahi Amaya APRN [Primary Care Provider] - Time of Disposition: 09:38
[2024-10-30 07:22] LABS: Basophils Percent Auto 0.4 % (0.2-1.2); Eosinophils Absolute Auto 0.3 K/mm3 (0-0.3); Eosinophils Percent Auto 6.1 % (0-4.4); Hematocrit 42.7 % (42.0-52.0); Hemoglobin 14.7 g/dL (14.0-18.0); Immature Granulocyte Absolute 0.01 K/mm3 (0.00-0.031); Immature Granulocyte Percent A 0.2 % (0-0.5); Lymphocytes Percent Auto 22.7 % (18.3-44.2); Mean Corpuscular HGB Conc 34.4 g/dl (32-36); Mean Corpuscular Hemoglobin 32.5 pg (26-34); Mean Corpuscular Volume 94.3 fl (80-100); Mean Platelet Volume 10.1 fl (7.4-10.4); Monocytes Absolute Auto 0.6 K/mm3 (0.1-0.6); Monocytes Percent Auto 11.4 % (2.6-8.5); Neutrophils Absolute Auto 3.1 K/mm3 (1.3-6.7); Neutrophils Percent Auto 59.2 % (45.5-73.1); Platelet Count Result 222 k/mm3 (150-375); Red Blood Count 4.53 M/mm3 (4.6-6.20); Red Cell Distribution Width 12.7 % (11.5-14.5); White Blood Count 5.3 K/mm3 (4.5-10.0)
[2024-10-30 07:30] VITALS: BP 154/60; PULSE 50; RESP 16; O2SAT 97
[2024-10-30 07:32] LABS: INR 1.2; Prothrombin Time 15.2 Seconds (11.1-14.7)
[2024-10-30 07:33] LABS: Partial Thromboplastin Time 31.1 Seconds (22.3-36.8)
[2024-10-30 07:49] LABS: Alanine Aminotransferase 17 U/L (6-50); Albumin Level 3.9 g/dL (3.5-5.1); Alkaline Phosphatase 59 U/L (38-126); Anion Gap 1 mmol/L (4-12); Aspartate Amino Transferase 28 U/L (17-59); Bilirubin,Total 0.8 mg/dL (0.2-1.3); Blood Urea Nitrogen 15 mg/dL (9-20); Calcium 8.9 mg/dL (8.4-10.2); Carbon Dioxide 28 mmol/L (22-30); Chloride 108 mmol/L (98-107); Estimated CRCL calculation 54 ml/min; Estimated Glomerular Filt Rate > 60; Glucose 96 mg/dL (65-110); Potassium 3.9 mmol/L (3.4-5.0); Sodium 137 mmol/L (137-145)
[2024-10-30 08:30] VITALS: BP 130/76; PULSE 46; RESP 16; O2SAT 98
[2024-10-30 09:50] VITALS: BP 152/69; PULSE 44; RESP 16; O2SAT 97
== END 2024-10-30 09:50 | disposition left against medical advice (07) ==
PROVIDERS: Emergency Provider Student in an Organized Health Care Education/Training Program; PCP Nurse Practitioner Family
DX: R20.2 Paresthesia of skin (principal); R00.1 Bradycardia, unspecified; R79.89 Other specified abnormal findings of blood chemistry; R10.30 Lower abdominal pain, unspecified; I10 Essential (primary) hypertension; E78.5 Hyperlipidemia, unspecified; N40.0 Benign prostatic hyperplasia without lower urinary tract symptoms; M16.11 Unilateral primary osteoarthritis, right hip; Z96.641 Presence of right artificial hip joint; I70.0 Atherosclerosis of aorta; I45.2 Bifascicular block
CPT/HCPCS: 36415; 70450; 71275; 74174; 80053; 84484; 85025; 85610; 85730; 93005; 99284; Q9967

== ENCOUNTER 2024-11-01 09:41 | Emergency (ER) | payer OTHER, SELFPAY ==
[2024-11-01] VITALS (7 sets, daily range): BP systolic 152–171; BP diastolic 45–81; PULSE 34–59; RESP 8–19; TEMP 36.2; O2SAT 96–100
--- NOTE | ~2024-11-01 | CT_ITS ---
CT brain wo con Ordering provider: Jodee Salazar MD History: 74 years Male with . left upper extremity weakness . Comparison: None. Technique: CT of the head without contrast. Radiation reduction technique utilized.The dose-length product was 605.33 mGy-cm. FINDINGS: BRAIN PARENCHYMA AND CSF SPACES: Mild leukoaraiosis and diffuse cortical atrophy. Mild atheromatous d isease. No midline shift, mass effect or hemorrhage. The brain parenchyma and CSF spaces are otherwise norm al. VISUALIZED PARANASAL SINUSES: Well aerated. MASTOIDS: Well aerated. BONES: The bones appear intact. SOFT TISSUES: Visualized nasopharynx is normal. Superficial soft tissues are normal. IMPRESSION: No acute intracranial findings. Reviewed, dictated and finalized at location A. ENT INTAKE COORDINATOR
--- NOTE | ~2024-11-01 | XR_ITS ---
EXAMINATION: XR chest 2V DATE: 11/01/2024 12:16 INDICATION: Hypertension. Left leg numbness. Weakness. TECHNIQUE: PA and lateral views of the chest were obtained. COMPARISON: Chest radiograph dated 10/10/[address] dated 10/30/2024 FINDINGS: The lungs are clear with no focal airspace opacities, pulmonary edema, pleural effusion or pneumothor ax. The cardiomediastinal silhouette is normal. Mild thoracic spondylosis with bridging osteophytes a t multiple levels consistent with diffuse idiopathic skeletal hyperostosis (DISH). IMPRESSION: 1. No acute cardiopulmonary disease. Reviewed, dictated and finalized at location B. T SERVICE MECHANIC
--- NOTE | ~2024-11-01 | CT_ITS ---
EXAMINATION: CT cervical spine wo con DATE: 11/01/2024 14:40 INDICATION: Left upper extremity weakness TECHNIQUE: Computed tomography (CT) of the cervical spine was performed without intravenous contrast. Automated exposure control and iterative reconstruction technique were employed. The dose-length pro duct was 417.34 mGy-cm. COMPARISON: None FINDINGS: 10 degrees cervicothoracic levocurvature. 1-2 mm retrolisthesis C3 on C4 and 2 mm retrolisthesis C4 o n C5. Vertebral body heights are normal. No fracture. Severe osteoarthritis at the atlantoaxial artic ulation. Severe disc height loss and severe uncovertebral osteoarthritis at C3-C4 through C7-T1 and m oderate disc height loss at C2-C3. Mild disc bulge at C2-C3 and posterior disc osteophyte complexes a t C3-C4 through C7-T1. This contributes to mild to moderate left-sided predominant central canal sten osis at C5-C6 and mild throughout the remainder of the cervical spine. Severe facet osteoarthritis on the left at C2-C3 and on the right at C3-C4. Mild to moderate facet osteoarthritis throughout the re mainder of the cervical spine. There is moderate bilateral cervical neural foraminal stenosis at C4-C 5 through C7-T1 and mild neural foraminal stenosis bilaterally at C3-C4 and minimal neural foraminal stenosis at C2-C3. Atherosclerotic calcification is at the bilateral carotid bulbs. Cervical soft tis sues are otherwise unremarkable. Visualized apices of lungs are clear. IMPRESSION: 1. Severe cervical spondylosis. No acute osseous abnormality. Reviewed, dictated and finalized at location B. TION SPECIALIST
--- NOTE | 2024-11-01 10:05 | ECG_ITS ---
Test Date: 2024-11-01 10:15:04 Measurements Intervals [place] Rate: 41 P: 264 AR: 156 QRS: -51 QRSD: 174 T: 46 QT: 489 QTc: 408 Interpretive Statements ECTOPIC ATRIAL BRADYCARDIA RIGHT BUNDLE BRANCH BLOCK [120+ ms QRS DURATION, UPRIGHT V1, 40+ ms S IN I/aVL/V4/V5/V6] LEFT ANTERIOR FASCICULAR BLOCK [QRS AXIS <= -45, QR IN I, RS IN II] VOLTAGE CRITERIA FOR LVH [MEETS CRITERIA IN ONE OF: R(aVL), S(V1), R(V5), R(V5/V6)+S(V1)] POSSIBLE SEPTAL MYOCARDIAL INFARCTION , PROBABLY OLD [30 ms Q WAVE IN V1/V2] LATERAL MYOCARDIAL INFARCTION , OF INDETERMINATE AGE [40+ ms Q WAVE AND/OR ST/T ABNORMALITY IN I/aVL/V5/V6] ABNORMAL ECG Electronically Signed On 11-01-2024 12:07:37 [employer]OT AIR FURNACE INSTALLER REPAIRER by Will Velez M.D.
--- NOTE | 2024-11-01 11:27 | ED_ITS ---
HPI - Weakness General Chief complaint: Weakness Stated complaint: weakness Time Seen by Provider: 11/01/24 11:27 Focused HPI: This is a 74 year old male that presents to the ER for generalized weakness. Was seen in the ER for this 2 days ago and found to be bradycardic with elevated cardiac enzymes. Refused to stay in the hospital at that time. Reports he has had tingling and pain in the left lower extremity for a couple of weeks. GENERAL: Elderly, well-nourished, and in no acute distress. HEAD: Normocephalic, atraumatic. CHEST: Clear to auscultation. ?No respiratory distress. HEART: Bradycardic, regular rhythm.? NEURO: ?Alert and oriented x3. Patient screened in triage and initial orders placed.? ?Additional care and disposition to be based upon?diagnostic testing and treatment. Related Data Allergies Allergy/AdvReac Type Severity Reaction Status Date / Time No Known Allergies Allergy Verified 10/30/24 07:18 [facility] Past Medical History Medical History Primary osteoarthritis of right hip Essential (primary) hypertension Surgical History Surgical History Status post total hip replacement, right Family History Family History Sibling Patient's sister is in good health Father Family history of malignant neoplasm Patient's father is Mother Family history of malignant neoplasm Patient's mother is Social History Social History Smoking status: Never smoker Additional smoking assessment comments: DENIES ANY FORM OF TOBACCO USE Alcohol intake: never Drinks per week: 6 Substance use: never Substance use type: does not use Lack of Transportation: No Lack of Food: Never True Current Housing: I Have Housing Concerned About Future Housing: No Difficulty Paying Gas/Electric Bills: No Difficulty Paying for Meds: No Currently Unemployed: No Education: High School Diploma/GED Difficulty w/ Childcare or Family Care: No Living arrangements: alone Occupation/Education: occupation Gender identity (if verbalized by the patient): Male Sexual Orientation (if Verbalized by the Patient): Straight or Heterosexual Spiritual care concerns: No Agree to blood products: Yes Course Vital Signs Vital signs: Vital Signs Temperature 97.2 F L 11/01/24 10:02 Pulse Rate 39 L 11/01/24 10:02 Respiratory Rate 18 11/01/24 10:02 Blood Pressure 152/45 H 11/01/24 10:02 Pulse Oximetry 98 11/01/24 10:02 Oxygen Delivery Room Air 11/01/24 10:02 Temperature 97.2 F L 11/01/24 10:02 Pulse Rate 39 L 11/01/24 10:02 Respiratory Rate 18 11/01/24 10:02 Blood Pressure 152/45 H 11/01/24 10:02 Pulse Oximetry 98 11/01/24 10:02 Oxygen Delivery Room Air 11/01/24 10:02 Discharge Plan Discharge Patient Language: Upper Sorbian Prescriptions: No Action naproxen 500 mg tablet 500 mg PO BID Qty: 180 1RF methylprednisolone [Medrol (Jim)] 4 mg tablets,dose pack See Rx Instructions PO PER PKG DIR Qty: 21 0RF Rx Instructions: PO PER PKG DIR amlodipine 10 mg tablet See Rx Instructions .ROUTE .COMPLEX Qty: 90 1RF Dose Instruction: TAKE 1 TABLET BY MOUTH EVERY DAY Rx Instructions: TAKE 1 TABLET BY MOUTH EVERY DAY lisinopril 40 mg tablet See Rx Instructions .ROUTE .COMPLEX Qty: 90 1RF Dose Instruction: TAKE 1 TABLET BY MOUTH EVERY DAY Rx Instructions: TAKE 1 TABLET BY MOUTH EVERY DAY hydrochlorothiazide 12.5 mg tablet See Rx Instructions .ROUTE .COMPLEX Qty: 90 1RF Dose Instruction: TAKE 1 TABLET BY MOUTH EVERY DAY Rx Instructions: TAKE 1 TABLET BY MOUTH EVERY DAY Follow-up/Referrals: Anahi Amaya APRN [Primary Care Provider] -
[2024-11-01 11:49] LABS: Basophils Percent Auto 0.5 % (0.2-1.2); Eosinophils Absolute Auto 0.2 K/mm3 (0-0.3); Eosinophils Percent Auto 2.9 % (0-4.4); Hematocrit 43.9 % (42.0-52.0); Hemoglobin 15.3 g/dL (14.0-18.0); Immature Granulocyte Absolute 0.01 K/mm3 (0.00-0.031); Immature Granulocyte Percent A 0.2 % (0-0.5); Lymphocytes Absolute Auto 1.31 K/mm3 (0.9-3.2); Lymphocytes Percent Auto 20.8 % (18.3-44.2); Mean Corpuscular HGB Conc 34.9 g/dl (32-36); Mean Corpuscular Hemoglobin 32.7 pg (26-34); Mean Corpuscular Volume 93.8 fl (80-100); Mean Platelet Volume 9.9 fl (7.4-10.4); Monocytes Absolute Auto 0.7 K/mm3 (0.1-0.6); Monocytes Percent Auto 11.1 % (2.6-8.5); Neutrophils Absolute Auto 4.1 K/mm3 (1.3-6.7); Neutrophils Percent Auto 64.5 % (45.5-73.1); Platelet Count Result 219 k/mm3 (150-375); Red Blood Count 4.68 M/mm3 (4.6-6.20); Red Cell Distribution Width 12.8 % (11.5-14.5); White Blood Count 6.3 K/mm3 (4.5-10.0)
[2024-11-01 11:58] LABS: Alanine Aminotransferase 18 U/L (6-50); Albumin Level 4.3 g/dL (3.5-5.1); Alkaline Phosphatase 68 U/L (38-126); Anion Gap 2 mmol/L (4-12); Aspartate Amino Transferase 31 U/L (17-59); Bilirubin,Total 0.8 mg/dL (0.2-1.3); Blood Urea Nitrogen 15 mg/dL (9-20); Calcium 9.1 mg/dL (8.4-10.2); Carbon Dioxide 25 mmol/L (22-30); Chloride 111 mmol/L (98-107); Estimated CRCL calculation 59 ml/min; Estimated Glomerular Filt Rate > 60; Glucose 100 mg/dL (65-110); Potassium 4.1 mmol/L (3.4-5.0); Sodium 138 mmol/L (137-145)
[2024-11-01 12:06] LABS: INR 1.1; Prothrombin Time 14.1 Seconds (11.1-14.7)
[2024-11-01 12:07] LABS: Partial Thromboplastin Time 31.8 Seconds (22.3-36.8)
--- NOTE | 2024-11-01 12:35 | ED_ITS ---
HPI - Weakness General Chief complaint: Weakness Stated complaint: weakness Time Seen by Provider: 11/01/24 11:27 Source: patient Mode of arrival: ambulatory Limitations: no limitations History of Present Illness HPI Narrative: 74 years old white male came to the ED by private car complaining of numbness of the left foot and also some possible weakness of the left upper extremity for the last 2 weeks was seen by his family physician and started on naproxen and prednisone no improvement. Patient reports extreme weakness mainly of the lower extremities and lost a bunch of weight, does not know how much was he has baseline weight. Patient lives alone. Drink alcohol 3-4 days a week. Patient denies any fever, chills, nausea, vomiting, abdominal pain, back pain, chest pain, shortness of breath, headache. History of hypertension. Related Data Allergies Allergy/AdvReac Type Severity Reaction Status Date / Time No Known Allergies Allergy Verified 10/30/24 07:18 [facility] Past Medical History Medical History Primary osteoarthritis of right hip Essential (primary) hypertension Surgical History Surgical History Status post total hip replacement, right Family History Family History Sibling Patient's sister is in good health Father Family history of malignant neoplasm Patient's father is Mother Family history of malignant neoplasm Patient's mother is Social History Social History Smoking status: Never smoker Additional smoking assessment comments: DENIES ANY FORM OF TOBACCO USE Alcohol intake: never Drinks per week: 6 Substance use: never Substance use type: does not use Lack of Transportation: No Lack of Food: Never True Current Housing: I Have Housing Concerned About Future Housing: No Difficulty Paying Gas/Electric Bills: No Difficulty Paying for Meds: No Currently Unemployed: No Education: High School Diploma/GED Difficulty w/ Childcare or Family Care: No Living arrangements: alone Occupation/Education: occupation Gender identity (if verbalized by the patient): Male Sexual Orientation (if Verbalized by the Patient): Straight or Heterosexual Spiritual care concerns: No Agree to blood products: Yes Exam 2 Narrative: General appearance: Well-developed, well-nourished Skin: Normal color Head: Normocephalic, nontraumatic Eyes: Clear conjunctiva ENT: Oropharynx normal, ears normal, nose normal Neck: Supple, nontender Chest and respiratory: Airway patent, no respiratory distress, no accessory muscle use Heart: Regular rate/rhythm Abdomen: Soft, nontender, no organomegaly, quiet bowel sounds Vascular: Normal peripheral pulses, normal capillary refill. Musculoskeletal: Normal range of motion, nontender back Neurologic: Alert and oriented ?3, CHIEF PHYSICAL THERAPIST is normal as tested, no gross motor deficit Course Vital Signs Vital signs: Vital Signs Temperature 36.2 C L 11/01/24 10:02 Pulse Rate 39 L 11/01/24 10:02 Respiratory Rate 18 11/01/24 10:02 Blood Pressure 152/45 H 11/01/24 10:02 Pulse Oximetry 98 11/01/24 10:02 Oxygen Delivery Room Air 11/01/24 10:02 Temperature 36.2 C L 11/01/24 10:02 Pulse Rate 59 L 11/01/24 15:07 Respiratory Rate 18 11/01/24 15:07 Blood Pressure 166/80 H 11/01/24 15:07 Pulse Oximetry 99 11/01/24 13:35 Oxygen Delivery Room Air 11/01/24 11:58 MDM - Weakness MDM Narrative Medical decision making narrative: patient came to the ED because of general weakness Vital signs showing heart rate 39 beats per minute , blood pressure 152/45 otherwise within normal limit Physical examination showed insignificant abnormality except poor historian patient Differential diagnosis include depression, electrolyte imbalance, dehydration, paresthesia, peripheral neuropathy Blood workup today includes CBC, CMP, TSH, sed rate showed Lab Data 11/01/24 11:40 11/01/24 11:40 Labs: Lab Results 11/01/24 11/01/24 Range/Units 11:40 13:16 WBC 6.3 (4.5-10.0) K/mm3 RBC 4.68 (4.6-6.20) M/mm3 Hgb 15.3 (14.0-18.0) g/dL Hct 43.9 (42.0-52.0) % MCV 93.8 (80-100) fl MCH 32.7 (26-34) pg MCHC 34.9 (32-36) g/dl RDW 12.8 (11.5-14.5) % Plt Count 219 (150-375) k/mm3 MPV 9.9 (7.4-10.4) fl Immature Gran % (Auto) 0.2 (0-0.5) % Neut % (Auto) 64.5 (45.5-73.1) % Lymph % (Auto) 20.8 (18.3-44.2) % Harris % (Auto) 11.1 H (2.6-8.5) % Eos % (Auto) 2.9 (0-4.4) % Baso % (Auto) 0.5 (0.2-1.2) % Lymph # (Auto) 1.31 (0.9-3.2) K/mm3 Harris # (Auto) 0.7 H (0.1-0.6) K/mm3 Eos # (Auto) 0.2 (0-0.3) K/mm3 Baso # (Auto) 0.0 (0.0-0.1) K/mm3 Abs Immat Gran (auto) 0.01 (0.00-0.031) K/mm3 Absolute Neuts (auto) 4.1 (1.3-6.7) K/mm3 Absolute Nucleated RBC 0.000 (0.0-0.012) K/mm3 Nucleated RBC % 0.0 (0.0-0.2) % ESR 10 (0-20) mm/hr PT 14.1 (11.1-14.7) Seconds INR 1.1 APTT 31.8 (22.3-36.8) Seconds Sodium 138 (137-145) mmol/L Potassium 4.1 (3.4-5.0) mmol/L Chloride 111 H (98-107) mmol/L Carbon Dioxide 25 (22-30) mmol/L Anion Gap 2 L (4-12) mmol/L BUN 15 (9-20) mg/dL Creatinine 0.90 (0.7-1.3) mg/dL Estim Creat Clear Calc 59 ml/min Estimated GFR > 60 (59 - ) Glucose 100 (65-110) mg/dL Calcium 9.1 (8.4-10.2) mg/dL Magnesium 2.0 (1.6-2.3) mg/dL Total Bilirubin 0.8 (0.2-1.3) mg/dL AST 31 (17-59) U/L ALT 18 (6-50) U/L Alkaline Phosphatase 68 (38-126) U/L Total Protein 8.0 (6.3-8.2) g/dL Albumin 4.3 (3.5-5.1) g/dL TSH 1.200 (0.465-4.680) uIU/mL Urine Color Yellow (Yellow) Urine Appearance Clear (Clear) Urine pH 7.0 (5.0-9.0) Ur Specific [place] 1.018 (1.001-1.035) Urine Protein Trace (Negative) mg/dL Urine Glucose (UA) Negative (Negative) mg/dL Urine Ketones Negative (Negative) mg/dL Ur Blood (Man) Negative (Negative) Urine Nitrate Negative (Negative) Urine Bilirubin Negative (Negative) Urine Urobilinogen 1.0 (<2.0) mg/dL Leukocyte Esterase Rfl Negative (Negative) MARICEL/UL Urine RBC 0-2 (0-2) /hpf Urine WBC 0-5 (0-3) /hpf Ur Squamous Epith Cells None seen (Few) /hpf Urine Bacteria None seen /hpf Urine Casts 0-2 Imaging Data Radiologist's impression: Impressions Chest X-Ray 11/01/24 12:24 IMPRESSION: 1. No acute cardiopulmonary disease. ECG Data EKG #1: Attestation: I personally reviewed and interpreted this ECG as follows: ECG completion date: 11/01/24 Interpretation: Ectopic atrial bradycardia, right bundle-branch block, left and teary physical are block, voltage criteria for LVH, possible septal myocardial infarction, probably old, lateral myocardial infarction of indeterminate age, ST/T abnormality in, abnormal EKG, Discharge Plan Discharge Clinical Impression: Paresthesia of foot, Weakness Patient Disposition: Home, Self-Care Condition: Stable Instructions: Paresthesia (ED), Weakness (ED) Additional Instructions: Return if symptoms are worsening , call your family physician for appointment, take Tylenol as as needed for aches and pain, continue home medications. Patient Language: Welsh Prescriptions: No Action naproxen 500 mg tablet 500 mg PO BID Qty: 180 1RF methylprednisolone [Medrol (Jim)] 4 mg tablets,dose pack See Rx Instructions PO PER PKG DIR Qty: 21 0RF Rx Instructions: PO PER PKG DIR amlodipine 10 mg tablet See Rx Instructions .ROUTE .COMPLEX Qty: 90 1RF Dose Instruction: TAKE 1 TABLET BY MOUTH EVERY DAY Rx Instructions: TAKE 1 TABLET BY MOUTH EVERY DAY lisinopril 40 mg tablet See Rx Instructions .ROUTE .COMPLEX Qty: 90 1RF Dose Instruction: TAKE 1 TABLET BY MOUTH EVERY DAY Rx Instructions: TAKE 1 TABLET BY MOUTH EVERY DAY hydrochlorothiazide 12.5 mg tablet See Rx Instructions .ROUTE .COMPLEX Qty: 90 1RF Dose Instruction: TAKE 1 TABLET BY MOUTH EVERY DAY Rx Instructions: TAKE 1 TABLET BY MOUTH EVERY DAY Follow-up/Referrals: Anahi Amaya APRN [Primary Care Provider] - Quality Stroke Scale Stroke Scale 1: Stroke scale date:: 11/01/24 1a Level of consciousness: alert-0 1b Level of consciousness questions: answers both correctly-0 1c Level of consciousness commands: obeys both correctly-0 2 Best gaze: normal-0 3 Visual: no visual loss-0 4 Facial palsy: normal-0 5a Motor: left arm: no drift-0 5b Motor: right arm: no drift-0 6a Motor: left leg: no drift-0 6b Motor: right leg: no drift-0 7 Limb ataxia: absent-0 8 Sensory: normal-0 9 Best language: no aphasia-0 10 Dysarthria: normal-0 11 Extinction and inattention: no abnormality-0 Level:: 0
[2024-11-01 13:34] LABS: Add Urine Microscopic? YES; Appearance Urine Clear (Clear); Bacteria Urine None Seen /hpf; Bilirubin Urine Negative (Negative); Blood Urine Negative (Negative); Color Urine Yellow (Yellow); Glucose Urine UA Negative (Negative); Ketones Urine Negative (Negative); Leukocyte Esterase Ur Negative LEU/UL (Negative); Nitrate Urine Negative (Negative); Non Pathogenic Casts 0-2; Protein Urine Trace mg/dL (Negative); RBC Urine 0-2 /hpf (0-2); Specific Grav Ur 1.018 (1.001-1.035); Squamous Epithelial Cell Urine None Seen /hpf (Few); WBC Urine 0-5 /hpf (0-3)
[2024-11-01 15:08] LABS: Erythrocyte Sedimentation Rate 10 mm/hr (0-20)
== END 2024-11-01 16:39 | disposition home or self-care (01) ==
PROVIDERS: Physician Assistant; Emergency Provider Emergency Medicine; PCP Nurse Practitioner Family
DX: R20.2 Paresthesia of skin (principal); R53.1 Weakness; I10 Essential (primary) hypertension; M16.11 Unilateral primary osteoarthritis, right hip; Z96.641 Presence of right artificial hip joint; Z79.899 Other long term (current) drug therapy; M47.812 Spondylosis without myelopathy or radiculopathy, cervical region; R00.1 Bradycardia, unspecified; I45.2 Bifascicular block; R94.31 Abnormal electrocardiogram [ECG] [EKG]
CPT/HCPCS: 36415; 70450; 71046; 72125; 80053; 81001; 83735; 84443; 85025; 85610; 85652; 85730; 93005; 99284

== ENCOUNTER 2025-09-12 04:08 | Observation (INO) | payer OTHER, SELFPAY ==
[2025-09-12] VITALS (24 sets, daily range): BP systolic 115–177; BP diastolic 54–88; PULSE 45–82; RESP 12–21; TEMP 36.3–36.4; O2SAT 92–99; BMI 21.1
--- NOTE | 2025-09-12 | ECHO_ITS ---
Patient Info Name: Dada Hameed Age: 75 years : 1950 Gender: Male Ht: 69 in Wt: 160 lbs BSA: 1.88 m2 HR: 67 bpm BP: 177 / 81 mmHg Technical Quality: Poor Exam Date: 09/12/2025 1:45 PM Patient Status: I Admit Date: 09/12/2025 Exam Type: CA echo dop color flow w con Complete two-dimensional, color flow and Doppler transthoracic echocardiogram is performed with contrast to opacify the left ventricle and to improve the deliniation of the left ventricle endocardial borders. Staff Referring Physician: Omar Leonard Corn Miller: Ramesh Rendon III Attending Provider: Bhavna Reynolds Contrast/Agitated Saline Contrast/Ag. Saline: Definity Amount: 2.00 ml Administered By: Ramesh Rendon III Existing IV Access: Yes IV Access Condition: patent with no signs of infiltration Reason for Poor Study: poor echocardiographic windows Summary 1. Definity contrast administered improved wall motion interpretation. 2. Left ventricular chamber dimension is normal. 3. Left ventricular systolic function is normal, estimated at 65-70. 4. The left ventricular diastolic function is grade I diastolic dysfunction. 5. E/e' 9 is minimally elevated. 6. Left atrial chamber dimension is mildly enlarged. 7. Right atrial chamber dimension is mildly enlarged. 8. The mitral valve has a mildly calcified annulus. Left Ventricle E/e' 9 is minimally elevated. Left ventricular chamber dimension is normal. Left ventricular systolic function is normal, estimated at 65-70. The left ventricular diastolic function is grade I diastolic dysfunction. Definity contrast administered improved wall motion interpretation. Right Ventricle Right ventricular chamber dimension is normal. Right ventricular systolic function is normal and with normal TAPSE 2.3 cm. Left Atria Left atrial chamber dimension is mildly enlarged. Right Atria Right atrial chamber dimension is mildly enlarged. Aortic Valve The aortic valve is probable trileaflet. There is no aortic valve stenosis. There is no aortic valve regurgitation. Pulmonic Valve There is no pulmonic regurgitation. Mitral Valve The mitral valve has a mildly calcified annulus. There is no mitral valve stenosis. There is no mitral valve regurgitation. Tricuspid Valve There is no tricuspid valve regurgitation. Pericardium/Pleural There is no pericardial effusion. Inferior Vena Cava Normal inferior vena cava with >50% collapse upon inspiration consistent with normal right atrial pressure, 5 mmHg. Aorta The aortic root size at the sinus of Valsalva is normal. Left Ventricular Outflow Tract Name Value Normal LVOT 2D LVOT Diameter 2.2 cm LVOT Doppler LVOT Peak Velocity 151 cm/s LVOT Peak Gradient 9 mmHg LVOT Mean Gradient 4 mmHg LVOT VTI 35 cm LVOT VTI/AV VTI Ratio 1.2 LVOT Stroke Volume 136 ml LVOT CO 6.6 l/min LVOT CI 3.5 l/min/m2 Mitral Valve Name Value Normal MV Doppler MV Peak Gradient 3 mmHg MV Mean Gradient 1 mmHg MV Area (Cont Eq VTI) 6.1 cm2 MV Diastolic Function MV E Peak Velocity 53 cm/s MV A Peak Velocity 79 cm/s MV E/A 0.7 MV Decel Time (PW) 259 ms MV Annular TDI MV E/e' (Septal) 10.6 MV E/e' (Lateral) 8.0 MV E/e' (Average) 9.3 Tricuspid Valve Name Value Normal Estimated PAP/RSVP RA Pressure 5 mmHg <=5 TV Annular TDI TV Lateral Luz Marina s' Velocity 14.1 cm/s >=9.5 Aortic Valve Name Value Normal AV Doppler AV Peak Velocity 141 cm/s AV Peak Gradient 8 mmHg AV Mean Gradient 4 mmHg AV VTI 30 cm AV Area (Cont Eq VTI) 4.5 cm2 >=3.0 AV Area (Cont Eq Alexis) 4.1 cm2 AV DI (Alexis) 1.07 AV Regurgitation 2D LVOT Area 3.9 cm2 Ventricles Name Value Normal LV Dimensions 2D/MM IVS Diastolic Thickness (2D) 1.1 cm 0.6-1.0 LVID Diastole (2D) 4.6 cm 4.2-5.8 LVIW Diastolic Thickness (2D) 1.0 cm 0.6-1.0 LVID Systole (2D) 2.6 cm 2.5-4.0 LVOT Diameter 2.2 cm LV Mass (2D Cubed) 160.12 g 88.00-224.00 LV Mass Index (2D Cubed) 85 g/m2 49-115 Relative Wall Thickness (2D) 0.42 <=0.42 LV Fractional Shortening/Ejection Fraction 2D/MM LV Fractional Shortening (2D) 43 % 25-43 LV EF (2D Teichholz) 74 % LV Diastolic Volume (4C MOD) 105 ml LV EF (4C MOD) 57 % LV Diastolic Volume (2C MOD) 52 ml LV EF (2C MOD) 63 % LV Diastolic Volume (BP MOD) 78 ml 62-150 LV Diastolic Volume Index (BP MOD) 41 ml/m2 34-74 LV Systolic Volume (BP MOD) 30 ml 21-61 LV Systolic Volume Index (BP MOD) 16 ml/m2 11-31 LV EF (BP MOD) 62 % 52-72 LV Diastolic Length (4C) 7.6 cm LV Systolic Length (4C) 5.8 cm LV Stroke Volume (4C MOD) 59 ml Atria Name Value Normal LA Dimensions LA Volume (4C A-L) 65 ml LA Volume (BP A-L) 64 ml RA Dimensions RA Systolic [place] Length (4C) 5.0 cm 2.1-2.7 RA Area (4C) 20.4 cm2 <=18.0 Report Signatures
--- NOTE | ~2025-09-12 | XR_ITS ---
Examination: XR chest 1V portable Clinical History: cp Comparison: 11/01/2024 Technique: Portable AP Findings: Heart size normal. Lungs clear. No acute bony abnormality. IMPRESSION: 1. No acute cardiopulmonary findings given portable technique. Reviewed, dictated and finalized at location [facility]CH
--- NOTE | ~2025-09-12 | NM_ITS ---
EXAMINATION: NM unique stress w perfusion DATE: 09/13/2025 13:41 INDICATION: Elevated troponin TECHNIQUE: Rest images were obtained following intravenous administration of 9.44 mCi Tc99m tetrofosmin (Myoview). The patient was infused intravenously with Lexiscan (Regadenoson). Then, 31.6 mCi Tc99m tetrofosmin (Myoview) was administered intravenously, and stress images were obtained. Data was chidi nstructed into short axis and horizontal and vertical long axis SPECT images. Gated SPECT images were also obtained. COMPARISON: None. FINDINGS: There is no definite reversible or fixed perfusion abnormality to suggest ischemia or infarction. There is normal left ventricular chamber size, wall motion and ejection fraction. Left ventricular ejection fraction measures 68%. IMPRESSION: 1. Normal myocardial perfusion at rest and during stress. 2. Left ventricular ejection fraction measuring 68%. Reviewed, dictated and finalized at location A. [facility]
--- NOTE | ~2025-09-12 | CT_ITS ---
EXAMINATION: CTA chest abdomen pelvis DATE: 09/12/2025 05:33 INDICATION: Abdominal pain. TECHNIQUE: Computed tomographic angiography (CTA) of the chest, abdomen, and pelvis was performed with 100 mL Omnipaque-350 intravenous contrast. Automated exposure control and iterative reconstruction technique were employed. The dose- length product was 710.06 mGy-cm. Maximum intensity projection 3D-r econstructions of the aorta and other arteries were constructed by the technologist on a separate workstation. COMPARISON: CT 10/30/2024 FINDINGS: CHEST CTA: The lungs demonstrate mild atelectasis. No pleural effusion. The heart size is normal. No pericardial effusion. There are coronary artery calcifications. Aortic atherosclerosis is noted. There are bridging endplate osteophytes at multiple levels in the spine, consistent with diffuse idiopathic skeletal hyperostosis (DISH). There is severe cervical spondylosis and mild thoracic spondylosis. ABDOMEN AND PELVIS CTA: The liver, gallbladder, spleen, pancreas, adrenal glands, and kidneys are normal. The prostate is mildly enlarged. There is a left inguinal hernia containing fat. There are no pathologically enlarged lymph nodes. There is no free intraperitoneal fluid. There is no significant stenosis of celiac axis, s uperior mesenteric artery, the renal arteries, or inferior mesenteric artery. There is a total right hip arthroplasty. There is severe lumbar spondylosis. IMPRESSION: 1. Aortic atherosclerosis. No aneurysm or dissection. 2. Left inguinal hernia containing fat. Reviewed, dictated and finalized at location [facility]. [facility]
--- NOTE | 2025-09-12 04:11 | ECG_ITS ---
Test Date: 2025-09-12 04:15:51 Measurements Intervals [place] Rate: 62 P: 0 [place]: 0 QRS: -63 QRSD: 178 T: 51 QT: 429 QTc: 436 Interpretive Statements POOR BASELINE ARTIFACT PRECLUDES ACCURATE RHYTHM INTERPRETATION RIGHT BUNDLE BRANCH BLOCK [120+ ms QRS DURATION, UPRIGHT V1, 40+ ms S IN I/aVL/V4/V5/V6] LEFT ANTERIOR FASCICULAR BLOCK [QRS AXIS <= -45, QR IN I, RS IN II] VOLTAGE CRITERIA FOR LVH [MEETS CRITERIA IN ONE OF: R(aVL), S(V1), R(V5), R(V5/V6)+S(V1)] POSSIBLE SEPTAL MYOCARDIAL INFARCTION , PROBABLY OLD [30 ms Q WAVE IN V1/V2] CRITICAL TEST RESULT Compared to ECG 11/01/2024 10:15:04 Ventricular premature complex(es) now present Myocardial infarct finding still present Electronically Signed On 09-12-2025 08:59:09 C ENGINEER by David Michelle M.D.
--- NOTE | 2025-09-12 04:28 | ECG_ITS ---
Test Date: 2025-09-12 04:28:27 Measurements Intervals [place] Rate: 43 P: -85 NV: 167 QRS: -59 QRSD: 193 T: 56 QT: 463 QTc: 394 Interpretive Statements ECTOPIC ATRIAL BRADYCARDIA WITH OCCASIONAL SUPRAVENTRICULAR PREMATURE COMPLEXES RIGHT BUNDLE BRANCH BLOCK [120+ ms QRS DURATION, UPRIGHT V1, 40+ ms S IN I/aVL/V4/V5/V6] LEFT ANTERIOR FASCICULAR BLOCK [QRS AXIS <= -45, QR IN I, RS IN II] VOLTAGE CRITERIA FOR LVH [MEETS CRITERIA IN ONE OF: R(aVL), S(V1), R(V5), R(V5/V6)+S(V1)] LATERAL MYOCARDIAL INFARCTION , OF INDETERMINATE AGE [40+ ms Q WAVE AND/OR ST/T ABNORMALITY IN I/aVL/V5/V6] Compared to ECG 09/12/2025 04:19:45 Bradycardia, nonsinus now present Myocardial infarct finding still present Electronically Signed On 09-12-2025 09:00:28 TEAM PSYCHOLOGIST by David Michelle M.D.
--- NOTE | 2025-09-12 04:34 | ED_ITS ---
HPI - General Adult General Chief complaint: Chest Pain Stated complaint: CHEST PAIN, BODY ACHES, MUSCLE CRAMPS Time Seen by Provider: 09/12/25 04:26 History of Present Illness HPI narrative: Patient is very difficult to communicate with and is not forthcoming with information. He frequently will not answer questions or make eye contact. Possibly undiagnosed autism spectrum disorder. This is a significant barrier to obtaining a good history. this is a 75-year-old male presenting ED via ambulance for body aches. Patient told EMS that he was having body aches, chest pain and muscle cramps. He does not endorse chest pain to me and says that he has pain and shaking in his left foot as well as abdominal pain. He says he has not had bowel movement in a week. He has not had any nausea or vomiting. He denies fevers chills or chest pain. Related Data Allergies Allergy/AdvReac Type Severity Reaction Status Date / Time No Known Allergies Allergy Verified 02/05/25 10:25 [facility] Past Medical History Medical History Primary osteoarthritis of right hip Essential (primary) hypertension Surgical History Surgical History Status post total hip replacement, right Family History Family History Sibling Patient's sister is in good health Father Family history of malignant neoplasm Patient's father is Mother Family history of malignant neoplasm Patient's mother is Social History Social History Additional smoking assessment comments: DENIES ANY FORM OF TOBACCO USE Alcohol intake: never Drinks per week: 6 Substance use: never Substance use type: does not use Do You Feel Safe in your Home?: Yes Lack of Transportation: No Lack of Food: Never True Current Housing: I Have Housing Concerned About Future Housing: No Difficulty Paying Gas/Electric Bills: No Difficulty Paying for Meds: No Currently Unemployed: No Education: High School Diploma/GED Difficulty w/ Childcare or Family Care: No Living arrangements: alone Occupation/Education: occupation Gender identity (if verbalized by the patient): Male Sexual Orientation (if Verbalized by the Patient): Straight or Heterosexual Spiritual care concerns: No Agree to blood products: Yes Exam 2 Narrative: APPEARANCE: No apparent distress. Head: atraumatic. EYES: EOMI, NOSE: Atraumatic NECK: Trachea midline RESPIRATORY: No increased rate of breathing Clear to auscultation CARDIOVASCULAR: intermittently bradycardic into the 40s, +2 pulses all extremities limbs are well perfused ABDOMINAL: Non-distended, soft nontender MUSCULOSKELETAl: focal exam lower extremities reveal no obvious deformities, no overlying skin changes, feet are warm with normal cap refill and strong pulses. NEURO: Alert. Moving 4/4 extremities SKIN:: Warm, dry. Normal color PSYCHIATRIC: Withdrawn Course Vital Signs Vital signs: Vital Signs Temperature 97.6 F 09/12/25 04:11 Pulse Rate 67 09/12/25 04:11 Respiratory Rate 21 H 09/12/25 04:11 Blood Pressure 177/81 H 09/12/25 04:11 Pulse Oximetry 98 09/12/25 04:11 Oxygen Delivery Room Air 09/12/25 04:11 Temperature 97.6 F 09/12/25 04:11 Pulse Rate 67 09/12/25 04:11 Respiratory Rate 21 H 09/12/25 04:11 Blood Pressure 177/81 H 09/12/25 04:11 Pulse Oximetry 98 09/12/25 04:33 Oxygen Delivery Room Air 09/12/25 04:33 Medical Decision Making [facility] Narrative Medical decision making narrative: -Course: 75-year-old male possibly presenting for chest pain. It is very difficult to get a complete history from the patient. He is currently denying any chest pain and just has some abdominal discomfort and cramping in his left leg. Abdominal exam is benign. CTA chest abdomen pelvis did not reveal any acute findings. EKG showed a right bundle branch block and ectopic atrial rhythm with intermittent bradycardia which from review of the EMR appears to be a known finding. His troponin was elevated at 0.073. patient started on a heparin drip. Results were discussed with the patient. Initially he was unsure if he wanted to stay. He did agree to stay if he would see the rn medical inpatient services today. Dr. Holloway was consulted. Patient will be admitted hospital further management. -DDX includes but is not limited to: Dehydration, ACS, PE, Vital Signs Vital Signs: Vital Signs Temperature 97.6 F 09/12/25 04:11 Pulse Rate 67 09/12/25 04:11 Respiratory Rate 21 H 09/12/25 04:11 Blood Pressure 177/81 H 09/12/25 04:11 Pulse Oximetry 98 09/12/25 04:11 Oxygen Delivery Room Air 09/12/25 04:11 Temperature 97.6 F 09/12/25 04:11 Pulse Rate 67 09/12/25 04:11 Respiratory Rate 21 H 09/12/25 04:11 Blood Pressure 177/81 H 09/12/25 04:11 Pulse Oximetry 98 09/12/25 04:33 Oxygen Delivery Room Air 09/12/25 04:33 Lab Data 09/12/25 04:31 09/12/25 04:31 Labs: Lab Results 09/12/25 09/12/25 Range/Units 04:31 05:49 WBC 6.9 (4.5-10.0) K/mm3 RBC 4.99 (4.6-6.20) M/mm3 Hgb 15.8 (14.0-18.0) g/dL Hct 45.8 (42.0-52.0) % MCV 91.8 (80-100) fl MCH 31.7 (26-34) pg MCHC 34.5 (32-36) g/dl RDW 13.7 (11.5-14.5) % Plt Count 234 (150-375) k/mm3 MPV 9.8 (7.4-10.4) fl Immature Gran % (Auto) 0.3 (0-0.5) % Neut % (Auto) 63.0 (45.5-73.1) % Lymph % (Auto) 22.4 (18.3-44.2) % [place] % (Auto) 9.4 H (2.6-8.5) % Eos % (Auto) 4.3 (0-4.4) % Baso % (Auto) 0.6 (0.2-1.2) % Lymph # (Auto) 1.55 (0.9-3.2) K/mm3 [place] # (Auto) 0.7 H (0.1-0.6) K/mm3 Eos # (Auto) 0.3 (0-0.3) K/mm3 Baso # (Auto) 0.0 (0.0-0.1) K/mm3 Abs Immat Gran (auto) 0.02 (0.00-0.031) K/mm3 Absolute Neuts (auto) 4.4 (1.3-6.7) K/mm3 Absolute Nucleated RBC 0.000 (0.0-0.012) K/mm3 Nucleated RBC % 0.0 (0.0-0.2) % PT 14.0 (11.1-14.7) Seconds INR 1.1 APTT 23.4 (22.3-36.8) Seconds Sodium 133 L (137-145) mmol/L Potassium 4.1 (3.4-5.0) mmol/L Chloride 102 (98-107) mmol/L Carbon Dioxide 21 L (22-30) mmol/L Anion Gap 10 (4-12) mmol/L BUN 15 (9-20) mg/dL Creatinine 0.97 (0.7-1.3) mg/dL Estim Creat Clear Calc 56 ml/min Estimated GFR > 60 (59 - ) Glucose 93 (65-110) mg/dL Calcium 9.2 (8.4-10.2) mg/dL Total Bilirubin 1.3 (0.2-1.3) mg/dL AST 34 (17-59) U/L ALT 19 (6-50) U/L Alkaline Phosphatase 59 (38-126) U/L Troponin I 0.073 H* (0.000-0.034) ng/mL Total Protein 7.6 (6.3-8.2) g/dL Albumin 4.3 (3.5-5.1) g/dL Lipase 49 (23-300) U/L Influenza A (RT-PCR) Pending Influenza B (RT-PCR) Pending RSV (RT-PCR) Pending SARS-CoV-2 RNA (RT-PCR) Pending Discharge Plan Discharge Clinical Impression: Elevated troponin Patient Disposition: Still a Patient Condition: Stable Patient Language: Lao Prescriptions: No Action amlodipine 10 mg tablet See Rx Instructions .ROUTE .COMPLEX Qty: 90 1RF Dose Instruction: TAKE 1 TABLET BY MOUTH EVERY DAY Rx Instructions: TAKE 1 TABLET BY MOUTH EVERY DAY lisinopril 40 mg tablet See Rx Instructions .ROUTE .COMPLEX Qty: 90 1RF Dose Instruction: TAKE 1 TABLET BY MOUTH EVERY DAY Rx Instructions: TAKE 1 TABLET BY MOUTH EVERY DAY hydrochlorothiazide 12.5 mg tablet See Rx Instructions .ROUTE .COMPLEX Qty: 90 1RF Dose Instruction: TAKE 1 TABLET BY MOUTH EVERY DAY Rx Instructions: TAKE 1 TABLET BY MOUTH EVERY DAY Follow-up/Referrals: Anahi Amaya APRN [Primary Care Provider, Internal Medicine]
[2025-09-12 04:38] LABS: Hematocrit 45.8 % (42.0-52.0); Hemoglobin 15.8 g/dL (14.0-18.0); Immature Granulocyte Percent A 0.3 % (0-0.5); Lymphocytes Absolute Auto 1.55 K/mm3 (0.9-3.2); Mean Corpuscular HGB Conc 34.5 g/dl (32-36); Mean Corpuscular Hemoglobin 31.7 pg (26-34); Mean Corpuscular Volume 91.8 fl (80-100); Nucleated Red Blood Cells Absolute Auto 0.000 K/mm3 (0.0-0.012); Nucleated Red Blood Cells Perc 0.0 % (0.0-0.2); Platelet Count Result 234 k/mm3 (150-375); Red Blood Count 4.99 M/mm3 (4.6-6.20); White Blood Count 6.9 K/mm3 (4.5-10.0)
--- NOTE | 2025-09-12 04:41 | ECG_ITS ---
Test Date: 2025-09-12 04:19:45 Measurements Intervals [place] Rate: 66 P: 0 [place]: 0 QRS: -62 QRSD: 177 T: 58 QT: 428 QTc: 451 Interpretive Statements SINUS RHYTHM RIGHT BUNDLE BRANCH BLOCK [120+ ms QRS DURATION, UPRIGHT V1, 40+ ms S IN I/aVL/V4/V5/V6] LEFT ANTERIOR FASCICULAR BLOCK [QRS AXIS <= -45, QR IN I, RS IN II] VOLTAGE CRITERIA FOR LVH [MEETS CRITERIA IN ONE OF: R(aVL), S(V1), R(V5), R(V5/V6)+S(V1)] POSSIBLE SEPTAL MYOCARDIAL INFARCTION , PROBABLY OLD [30 ms Q WAVE IN V1/V2] Compared to ECG 09/12/2025 04:15:51 Ventricular premature complex(es) no longer present Myocardial infarct finding still present Electronically Signed On 09-12-2025 08:59:55 DENIAL RESOLUTION SPECIALIST by David Michelle M.D.
[2025-09-12 04:52] LABS: INR 1.1; Partial Thromboplastin Time 23.4 Seconds (22.3-36.8); Prothrombin Time 14.0 Seconds (11.1-14.7)
[2025-09-12 04:57] LABS: Alanine Aminotransferase 19 U/L (6-50); Albumin Level 4.3 g/dL (3.5-5.1); Alkaline Phosphatase 59 U/L (38-126); Anion Gap 10 mmol/L (4-12); Aspartate Amino Transferase 34 U/L (17-59); Bilirubin,Total 1.3 mg/dL (0.2-1.3); Blood Urea Nitrogen 15 mg/dL (9-20); Calcium 9.2 mg/dL (8.4-10.2); Carbon Dioxide 21 mmol/L (22-30); Chloride 102 mmol/L (98-107); Estimated CRCL calculation 56 ml/min; Estimated Glomerular Filt Rate > 60; Glucose 93 mg/dL (65-110); Lipase 49 U/L (23-300); Potassium 4.1 mmol/L (3.4-5.0); Sodium 133 mmol/L (137-145); Total Protein 7.6 g/dL (6.3-8.2)
[2025-09-12 05:05] LABS: Troponin I 0.073 ng/mL (0.000-0.034)
[2025-09-12 06:29] LABS: Influenza A QL RT-PCR Negative (Negative); Influenza B QL RT-PCR Negative (Negative); RSV RNA, RT-PCR Negative (Negative); SARS-CoV-2 RNA PCR Negative (Negative)
[2025-09-12] MEDS: HEPARIN SOD/D5W 100 UNITS/ML 25,000 UNITS/250 ML BAG 9 UNITS IV CONT (06:42)
--- NOTE | 2025-09-12 07:00 | PC.NURSE ---
BSR accomplished with Rosa DAVEY; patient getting 3hr Trop and EKG. patient changed into gown and it was advised that if he needed anything to please call for staff for safety. patient needed reassurance as to why he should use call light.
--- NOTE | 2025-09-12 07:15 | ECG_ITS ---
Test Date: 2025-09-12 07:19:22 Measurements Intervals [place] Rate: 73 P: 0 [place]: 0 QRS: -69 QRSD: 174 T: 65 QT: 424 QTc: 470 Interpretive Statements SINUS RHYTHM WITH FIRST-DEGREE AV BLOCK LEFT ANTERIOR FASCICULAR BLOCK RIGHT BUNDLE BRANCH BLOCK [120+ ms QRS DURATION, UPRIGHT V1, 40+ ms S IN I/aVL/V4/V5/V6] LEFT VENTRICULAR HYPERTROPHY LATERAL MYOCARDIAL INFARCTION, PROBABLE OLD Electronically Signed On 09-12-2025 11:28:17 APPLIANCE SERVICER by David Michelle M.D.
--- NOTE | 2025-09-12 07:45 | PM.CNCAR ---
Assessment and Plan Assessment and plan (1) Elevated troponin: Code(s): R79.89 - Other specified abnormal findings of blood chemistry Status: Acute Assessment and Plan: Slightly elevated at .073. No chest pain or sob to suggest ACS. On heparin drip. Check echo and trend troponin. If troponin trends down or echo shows no wall motion abnormalities, would stop heparin drip. (2) Essential (primary) hypertension: Code(s): I10 - Essential (primary) hypertension Status: Acute Assessment and Plan: Stable. (3) Ectopic atrial rhythm: Code(s): I49.1 - Atrial premature depolarization Status: Acute Assessment and Plan: Stable. (4) Leg pain, left: Code(s): M79.605 - Pain in left leg Status: Acute Assessment and Plan: With numbness of left leg. Good distal pulses. Probably due to neuropathy. (5) Abdominal bloating: Code(s): R14.0 - Abdominal distension (gaseous) Status: Acute Assessment and Plan: Constipation? History of Present Illness History of Present Illness Consult date/time: 09/12/25 07:45 Reason For Visit: Elevated Trop Narrative: 75 yr old man who is my regular cardiology patient and a patient of Anahi Amaya presents to ER with pain in leg radiating to abdomen. He has a history of ectopic atrial bradycardia, hypertension, covid infection. States this morning he felt left leg pain radiating to abdomen and having them now and states he has intermittent numbness of left leg. His troponin was slightly elevated and he was started on heparin drip. He can walk 1/2 mile. Denies chest pain, sob, orthopnea, PND, edema, dizziness. Cardiovascular Procedures Electrophysiology:: 12/19/24 EKG: Ectopic atrial rhythm at 68 bpm, RBBB, LAFB, high lateral infarct, age indeterminate. 11/01/24 EKG: Ectopic atrial bradycardia at 41 bpm, RBBB, LAFB, LVH, lateral infarct, age indeterminate. Review of Systems Review of Systems: All systems reviewed & are unremarkable except as noted in HPI and below Constitutional: Constitutional: Reports as per HPI, Denies chills and Denies fever(s) Cardiovascular: Cardiovascular: Reports as per HPI, Denies chest pain and Denies irregular heart rhythm Respiratory: Respiratory: Reports as per HPI and Denies dyspnea Gastrointestinal: Gastrointestinal: Reports as per HPI and Reports abdominal pain Genitourinary: Genitourinary: Reports as per HPI and Denies dysuria Musculoskeletal: Musculoskeletal: Reports as per HPI Comments: left leg pain and intermittent numbness Neurologic: Reports as per HPI, Denies dizziness, Denies syncope and Reports numbness PMFSH Past Medical History Medical History Primary osteoarthritis of right hip Essential (primary) hypertension Surgical History Surgical History Status post total hip replacement, right Family History Family History Sibling Patient's sister is in good health Father Family history of malignant neoplasm Patient's father is Mother Family history of malignant neoplasm Patient's mother is Social History Social History Additional smoking assessment comments: DENIES ANY FORM OF TOBACCO USE Alcohol intake: never Drinks per week: 6 Substance use: never Substance use type: does not use Do You Feel Safe in your Home?: Yes Lack of Transportation: No Lack of Food: Never True Current Housing: I Have Housing Concerned About Future Housing: No Difficulty Paying Gas/Electric Bills: No Difficulty Paying for Meds: No Currently Unemployed: No Education: High School Diploma/GED Difficulty w/ Childcare or Family Care: No Living arrangements: alone Occupation/Education: occupation Gender identity (if verbalized by the patient): Male Sexual Orientation (if Verbalized by the Patient): Straight or Heterosexual Spiritual care concerns: No Agree to blood products: Yes Meds Home Medications and Allergies Home Medications ?Medication ?Instructions ?Recorded ?Confirmed ?Type amlodipine 10 mg tablet See Rx Instructions .Route 08/19/25 Rx .COMPLEX #90 tabs lisinopril 40 mg tablet See Rx Instructions .Route 08/26/25 Rx .COMPLEX #90 tabs hydrochlorothiazide 12.5 mg tablet See Rx Instructions .Route 09/03/25 Rx .COMPLEX #90 tabs Allergies Allergy/AdvReac Type Severity Reaction Status Date / Time No Known Allergies Allergy Verified 02/05/25 10:25 Vital Signs Vital Signs - 24 hr 09/12/25 04:11 09/12/25 04:33 09/12/25 04:39 Temperature 97.6 F Pulse Rate 67 66 Respiratory Rate 21 H 20 Blood Pressure 177/81 H 143/69 H Pulse Oximetry 98 98 97 Oxygen Delivery Room Air Room Air 09/12/25 04:46 09/12/25 06:31 09/12/25 07:01 Temperature Pulse Rate 61 79 73 Respiratory Rate 15 17 16 Blood Pressure 149/74 H 161/81 H 143/77 H Pulse Oximetry 99 99 99 Oxygen Delivery 09/12/25 07:31 Temperature Pulse Rate 78 Respiratory Rate 16 Blood Pressure 160/84 H Pulse Oximetry 97 Oxygen Delivery Results Labs and Meds 09/12/25 04:31 09/12/25 04:31 Lab results: Cardiac Enzymes 09/12/25 Range/Units 04:31 AST 34 (17-59) U/L Troponin I 0.073 H* (0.000-0.034) ng/mL Coagulation 09/12/25 Range/Units 04:31 PT 14.0 (11.1-14.7) Seconds APTT 23.4 (22.3-36.8) Seconds CBC 09/12/25 Range/Units 04:31 WBC 6.9 (4.5-10.0) K/mm3 RBC 4.99 (4.6-6.20) M/mm3 Hgb 15.8 (14.0-18.0) g/dL Hct 45.8 (42.0-52.0) % Plt Count 234 (150-375) k/mm3 Lymph # (Auto) 1.55 (0.9-3.2) K/mm3 [place] # (Auto) 0.7 H (0.1-0.6) K/mm3 Eos # (Auto) 0.3 (0-0.3) K/mm3 Baso # (Auto) 0.0 (0.0-0.1) K/mm3 Comprehensive Metabolic Panel 09/12/25 Range/Units 04:31 Sodium 133 L (137-145) mmol/L Potassium 4.1 (3.4-5.0) mmol/L Chloride 102 (98-107) mmol/L Carbon Dioxide 21 L (22-30) mmol/L BUN 15 (9-20) mg/dL Creatinine 0.97 (0.7-1.3) mg/dL Glucose 93 (65-110) mg/dL Calcium 9.2 (8.4-10.2) mg/dL AST 34 (17-59) U/L ALT 19 (6-50) U/L Alkaline Phosphatase 59 (38-126) U/L Total Protein 7.6 (6.3-8.2) g/dL Albumin 4.3 (3.5-5.1) g/dL Patient Weight 09/12/25 23:59 Weight 72.8 kg
[2025-09-12 07:54] LABS: Troponin I 0.083 ng/mL (0.000-0.034)
--- NOTE | 2025-09-12 09:53 | ADMGEN ---
This patient, Dada Hameed, was admitted to IMU Room 231-01. Patient/family oriented to hospital policies and general routines including ID bracelet, bed and alarms, visiting hours, pain management, procedures, bathroom and other care routines, personal items, smoking policy, room service/diet, and visiting hours. Information on how to activate the Rapid Response Team has been discussed. Patient/Family are encouraged to report perceived risks to care and to ask questions if they do not understand what they are told or what they should do.
--- NOTE | 2025-09-12 10:33 | ECG_ITS ---
Test Date: 2025-09-12 10:44:02 Measurements Intervals [place] Rate: 50 P: 252 PA: 174 QRS: 244 QRSD: 186 T: 107 QT: 485 QTc: 443 Interpretive Statements SINUS RHYTHM WITH FIRST-DEGREE AV BLOCK CONSIDER LIMB LEAD REVERSAL RIGHT BUNDLE BRANCH BLOCK [120+ ms QRS DURATION, UPRIGHT V1, 40+ ms S IN I/aVL/V4/V5/V6] Electronically Signed On 09-12-2025 11:31:17 ELECTRICAL INSTALLER by David Michelle M.D.
[2025-09-12 11:15] LABS: Cholesterol 224 mg/dL (0-200); HDL Direct 65 mg/dL; Triglycerides 45 mg/dL (<150)
[2025-09-12 11:19] LABS: Troponin I 0.094 ng/mL (0.000-0.034)
[2025-09-12 11:33] LABS: Partial Thromboplastin Time > 200.0 Seconds (22.3-36.8)
--- NOTE | 2025-09-12 12:21 | PM.IMHP ---
H&P: HPI History of Present Illness Date/Time: 09/12/25 12:21 Chief Complaint: Chest pain Narrative: Patient is a 75-year-old male past medical history of bradycardia and hypertension coming from home presenting with 2-3 weeks onset of abdominal pain, weakness constipation, recently chest pain. Patient is not optimal historian and as such full detailed history is difficult to obtain at this time. He also reports complain of numbness in the left leg that is intermittent, which has since from the distal leg up to the abdomen. Denies paresis or paralysis, deny symptoms getting worse with hip flexion. EKG in the emergency room shows right bundle-branch block with ectopic atrial rhythm and intermittent bradycardia, this is all known and patient follows with Cardiology outpatient for the same. Troponins were initially elevated at 0.073, as such heparin drip was started in the emergency room. Cardiology is on board at this time, recommending trending troponin and obtaining echocardiogram. If troponin trends down or echo is normal, heparin drip can be discontinued and suspicion of NSTEMI can be eliminated. However, troponins are actively trending up, to 0.083 and 0.094. Patient denies symptoms of UTI, he says he thinks he has COVID as he has noted mild dry cough, congestion, with above-mentioned body aches and weakness. COVID is negative as is influenza and RSV. Labs on admission reviewed, largely within normal parameters aside from sodium 133 and CO2 of 21. CHEST CTA: The lungs demonstrate mild atelectasis. No pleural effusion. The heart size is normal. No pericardial effusion. There are coronary artery calcifications. Aortic atherosclerosis is noted. There are bridging endplate osteophytes at multiple levels in the spine, consistent with diffuse idiopathic skeletal hyperostosis (DISH). There is severe cervical spondylosis and mild thoracic spondylosis. ABDOMEN AND PELVIS CTA: The liver, gallbladder, spleen, pancreas, adrenal glands, and kidneys are normal. The prostate is mildly enlarged. There is a left inguinal hernia containing fat. There are no pathologically enlarged lymph nodes. There is no free intraperitoneal fluid. There is no significant stenosis of celiac axis, superior mesenteric artery, the renal arteries, or inferior mesenteric artery. There is a total right hip arthroplasty. There is severe lumbar spondylosis. CXR: No acute cardiopulmonary findings given portable technique. Review of Systems Review of Systems: All systems reviewed & are unremarkable except as noted in HPI and below PMFSH Past Medical History Medical History Primary osteoarthritis of right hip Essential (primary) hypertension Surgical History Surgical History Status post total hip replacement, right Family History Family History Sibling Patient's sister is in good health Father Family history of malignant neoplasm Patient's father is Mother Family history of malignant neoplasm Patient's mother is Social History Social History Second hand tobacco smoke exposure: No Additional smoking assessment comments: DENIES ANY FORM OF TOBACCO USE Alcohol intake: current Drinks per week: 14 Substance use: never Substance use type: does not use Last use: 2 beers per day Do You Feel Safe in your Home?: Yes Lack of Transportation: No Lack of Food: Never True Current Housing: I Have Housing Concerned About Future Housing: No Difficulty Paying Gas/Electric Bills: No Difficulty Paying for Meds: No Currently Unemployed: No Education: High School Diploma/GED Difficulty w/ Childcare or Family Care: No Living arrangements: alone Occupation/Education: occupation Gender identity (if verbalized by the patient): Male Sexual Orientation (if Verbalized by the Patient): Straight or Heterosexual Spiritual care concerns: No Agree to blood products: Yes Meds Home Medications and Allergies Home Medications ?Medication ?Instructions ?Recorded ?Confirmed ?Type amlodipine 10 mg tablet 10 mg feeding tube DAILY 09/12/25 09/12/25 History aspirin 81 mg tablet,delayed 81 mg PO DAILY 09/12/25 09/12/25 History release (Adult Aspirin Regimen) hydrochlorothiazide 12.5 mg tablet 12.5 mg PO DAILY 09/12/25 09/12/25 History lisinopril 40 mg tablet 40 mg PO DAILY 09/12/25 09/12/25 History naproxen sodium 220 mg capsule 440 mg PO DAILY 09/12/25 09/12/25 History (Aleve) Allergies Allergy/AdvReac Type Severity Reaction Status Date / Time No Known Allergies Allergy Verified 09/12/25 10:14 Vital Signs Vital Signs - 24 hr 09/12/25 04:11 09/12/25 04:33 09/12/25 04:39 Temperature 97.6 F Pulse Rate 67 66 Respiratory Rate 21 H 20 Blood Pressure 177/81 H 143/69 H Pulse Oximetry 98 98 97 Oxygen Delivery Room Air Room Air 09/12/25 04:46 09/12/25 06:31 09/12/25 07:01 Temperature Pulse Rate 61 79 73 Respiratory Rate 15 17 16 Blood Pressure 149/74 H 161/81 H 143/77 H Pulse Oximetry 99 99 99 Oxygen Delivery 09/12/25 07:31 09/12/25 07:32 09/12/25 08:26 Temperature Pulse Rate 78 78 64 Respiratory Rate 16 18 17 Blood Pressure 160/84 H Pulse Oximetry 97 96 98 Oxygen Delivery 09/12/25 08:30 09/12/25 08:31 09/12/25 08:47 Temperature Pulse Rate 65 63 71 Respiratory Rate 15 16 16 Blood Pressure 143/75 H Pulse Oximetry 98 98 98 Oxygen Delivery 09/12/25 09:14 09/12/25 09:15 09/12/25 09:56 Temperature 97.6 F Pulse Rate 73 78 82 Respiratory Rate 16 17 18 Blood Pressure 160/88 H 164/82 H Pulse Oximetry 98 98 97 Oxygen Delivery 09/12/25 10:00 09/12/25 12:00 Temperature Pulse Rate 69 51 L Respiratory Rate Blood Pressure Pulse Oximetry Oxygen Delivery Exam Const: General: comfortable and no acute distress HENMT: Face/Nose/Sinus: Normal nares present Mouth: Yes moist mucous membranes Eyes: General: appearance normal, both eyes and all related structures Sclera: sclerae normal Pupils: Equal, round and reactive pupils present EOM: EOMs intact bilaterally Neck: Neck: supple Resp: Effort & Inspection: normal respiratory effort Auscultation: clear to auscultation bilaterally Cardio: Rate: bradycardic Rhythm: regular rhythm GI: GI Palp: Yes Soft to palpation Auscultation: normal bowel sounds Neuro: Speech: normal speech Motor exam (neuro): 5/5 motor strength present throughout and Normal motor muscle tone present throughout Sensory Exam: normal sensation (Decreased sensation left lower extremity) Extrem: General: normal to inspection Psych: Other: Avoidant of eye contact, gives limited history, there is suspicion patient may be on the autism spectrum H&P: Results Labs Labs: Short CBC 09/12/25 Range/Units 04:31 WBC 6.9 (4.5-10.0) K/mm3 Hgb 15.8 (14.0-18.0) g/dL Hct 45.8 (42.0-52.0) % Plt Count 234 (150-375) k/mm3 BMP 09/12/25 04:31 Sodium 133 L Potassium 4.1 Chloride 102 Carbon Dioxide 21 L BUN 15 Creatinine 0.97 Glucose 93 Calcium 9.2 Cardiac Enzymes 09/12/25 09/12/25 09/12/25 Range/Units 04:31 07:15 10:42 Troponin I 0.073 H* 0.083 H* 0.094 H* (0.000-0.034) ng/mL Liver Function 09/12/25 Range/Units 04:31 Total Bilirubin 1.3 (0.2-1.3) mg/dL AST 34 (17-59) U/L ALT 19 (6-50) U/L Alkaline Phosphatase 59 (38-126) U/L Albumin 4.3 (3.5-5.1) g/dL Assessment and Plan Assessment and plan (1) Elevated troponin: Code(s): R79.89 - Other specified abnormal findings of blood chemistry Status: Acute Assessment and Plan: Patient's troponin on initial admission 0.073, trending up to 0.083 and 0.094 subsequently. He is on heparin drip for suspected NSTEMI. Continue heparin drip given increase in troponins, follow-up with cardiology regarding next steps which may include cardiac catheterization or NST Follow echo (2) Bradycardia: Code(s): R00.1 - Bradycardia, unspecified Status: Acute Assessment and Plan: History of bradycardia, known and following with Cardiology in the outpatient setting Avoid agents that can cause bradycardia Telemetry monitoring (3) Neuropathy: Code(s): G62.9 - Polyneuropathy, unspecified Status: Acute Assessment and Plan: Patient is reporting longstanding history of numbness and decreased sensation in his left lower extremity that is intermittent. No history of diabetes, no worsening on flexion of the hip joint, no signs to suggest element of sciatica currently Consider outpatient neurology (4) Essential (primary) hypertension: Code(s): I10 - Essential (primary) hypertension Status: Acute Assessment and Plan: Blood pressure elevated on admission Home medications include amlodipine 10 mg daily, hydrochlorothiazide 12.5 mg daily, lisinopril 40 mg daily Can resume home medications Plan DVT prophylaxis Heart healthy diet-may need NPO if going for catheterization PPI for GI prophylaxis Hospitalist MIPS Advance Care Plan I have confirmed that the patient's Advanced Care Plan is present, code status is documented, or surrogate decision maker is listed in patient medical record.: Yes Medication Reconciliation I have utilized all available resources to obtain, update and review the patients current medications (includes all prescriptions, OTC, herbals, cannabis, and nutritional supplements).: Yes
[2025-09-12] MEDS: HEPARIN SOD/D5W 100 UNITS/ML 25,000 UNITS/250 ML BAG 7 UNITS IV CONT (12:45)
[2025-09-12] MEDS: PANTOPRAZOLE 40 MG TABLET PO (14:14)
[2025-09-12] MEDS: DOCUSATE SODIUM 100 MG CAPSULE PO ×2 (14:14→20:18)
[2025-09-12] MEDS: PERFLUTREN LIPID MICROSPHERES 1.5 ML VIAL DILUTED TO 10 ML TOTAL VOLUME IV PUSH (16:28)
--- NOTE | 2025-09-12 16:28 | IVDEFINITY ---
Prior to administration of IV Definity the patient was educated on the risks and benefits of the imaging enhancing agent including potential adverse side effects. The patient verbalized understanding. Allergies were verified. No exclusion criteria were identified and at least one of the following inclusion criteria were met: 1) physician request, 2) patient technically difficult to image (per the [place] [employer] guidelines of two or more segments not discernable within the apical view), or 3) questionable left ventricular function. ?
[2025-09-12 19:04] LABS: Partial Thromboplastin Time 125.9 Seconds (22.3-36.8)
[2025-09-13] VITALS (11 sets, daily range): BP systolic 140–162; BP diastolic 64–70; PULSE 45–120; RESP 14–18; TEMP 36.4–36.5; O2SAT 95–99
--- NOTE | 2025-09-13 | EST_ITS ---
Patient Info Name: Dada Hameed Age: 75 years : 1950 Gender: Male Ht: 69 in Wt: 140 lbs BSA: 1.75 m2 HR: 64 bpm BP: 147 / 69 mmHg Exam Date: 09/13/2025 5:53 AM Patient Status: I Admit Date: 09/12/2025 Exam Type: CA stress unique w NM A regadenoson stress test was performed. Staff Referring Physician: Robin Holloway DO Attending Provider: Bhavna Reynolds Exercise Technologist: Thelma Melton Exercise Physician: Robin Holloway DO Summary 1. 1. Negative lexiscan stress test for ischemic ST changes by ECG criteria. 2. 2. Baseline hypertension. 3. 3. Nuclear scan to follow and will be reported separately. Please correlate with it. 4. 4. Patient informed of the above results. Protocol: Lexiscan Stress ECG Details Stage: REST Duration (min): 1 min : 50 sec HR (bpm): 68 SBP (mmHg): 147 DBP (mmHg): 69 Stage: REST Duration (min): 22 min : 24 sec HR (bpm): 66 SBP (mmHg): 147 DBP (mmHg): 69 Stage: STAGE 1 Duration (min): 0 min : 59 sec HR (bpm): 86 SBP (mmHg): 152 DBP (mmHg): 63 Stage: RECOVERY Duration (min): 1 min : 0 sec HR (bpm): 99 SBP (mmHg): 152 DBP (mmHg): 63 Stage: RECOVERY Duration (min): 2 min : 0 sec HR (bpm): 100 SBP (mmHg): 152 DBP (mmHg): 63 Stage: RECOVERY Duration (min): 3 min : 0 sec HR (bpm): 96 SBP (mmHg): 152 DBP (mmHg): 63 Stage: RECOVERY Duration (min): 3 min : 7 sec HR (bpm): 95 SBP (mmHg): 152 DBP (mmHg): 63 Rest HR: 66 bpm Peak HR: 104 bpm Rest Sys BP: 147 mmHg Peak Sys BP: 152 mmHg Max Pred HR: 143 bpm % Max Pred HR: 73 % Target HR: 122 bpm Max RPP: 15,808 bpm*mmHg Termination Reason: Completed protocol Cardiac Symptoms: Shortness of breath Total Time: 1 min : 0 sec Rest Ruiz BP: 69 mmHg Peak Ruiz BP: 63 mmHg Total Dose: 0.4 mg Resting ECG Sinus rhythm with PAC's, RBBB, LAFB. Stress ECG No ST changes. Arrhythmias None. Report Signatures
[2025-09-13 04:29] LABS: Hematocrit 44.6 % (42.0-52.0); Hemoglobin 15.4 g/dL (14.0-18.0); Immature Granulocyte Percent A 0.1 % (0-0.5); Lymphocytes Absolute Auto 1.38 K/mm3 (0.9-3.2); Mean Corpuscular HGB Conc 34.5 g/dl (32-36); Mean Corpuscular Hemoglobin 31.6 pg (26-34); Mean Corpuscular Volume 91.6 fl (80-100); Nucleated Red Blood Cells Absolute Auto 0.000 K/mm3 (0.0-0.012); Nucleated Red Blood Cells Perc 0.0 % (0.0-0.2); Platelet Count Result 237 k/mm3 (150-375); Red Blood Count 4.87 M/mm3 (4.6-6.20); White Blood Count 6.9 K/mm3 (4.5-10.0)
[2025-09-13 04:49] LABS: Alanine Aminotransferase 17 U/L (6-50); Albumin Level 4.1 g/dL (3.5-5.1); Alkaline Phosphatase 52 U/L (38-126); Anion Gap 10 mmol/L (4-12); Aspartate Amino Transferase 40 U/L (17-59); Bilirubin,Total 1.3 mg/dL (0.2-1.3); Blood Urea Nitrogen 16 mg/dL (9-20); Calcium 8.8 mg/dL (8.4-10.2); Carbon Dioxide 22 mmol/L (22-30); Chloride 101 mmol/L (98-107); Estimated CRCL calculation 50 ml/min; Estimated Glomerular Filt Rate > 60; Glucose 80 mg/dL (65-110); Potassium 3.9 mmol/L (3.4-5.0); Sodium 133 mmol/L (137-145); Total Protein 7.1 g/dL (6.3-8.2)
[2025-09-13 04:59] LABS: Troponin I 0.096 ng/mL (0.000-0.034)
--- NOTE | 2025-09-13 07:52 | P.PNCA_ITS ---
Progress Note: A&P Assessment and Plan (1) Elevated troponin: Code(s): R79.89 - Other specified abnormal findings of blood chemistry Status: Acute Assessment and Plan: Mildly elevated and levelling off at 0.096. No chest pain or sob to suggest ACS. 09/12/25 Echo: EF 65-70%, grade I diastolic dysfunction (E/e' 9), mild biatrial enlargement, mild MAC. Stopped heparin drip. Start aspirin 81 mg daily. Obtain Advanced Liquid Logiciscan myoview stress today. If OK may d/c home from cardiology standpoint. (2) Essential (primary) hypertension: Code(s): I10 - Essential (primary) hypertension Status: Acute Assessment and Plan: Stable. (3) Ectopic atrial rhythm: Code(s): I49.1 - Atrial premature depolarization Status: Acute Assessment and Plan: Stable. (4) Leg pain, left: Code(s): M79.605 - Pain in left leg Status: Acute Assessment and Plan: With numbness of left leg. Good distal pulses. Probably due to neuropathy. (5) Abdominal bloating: Code(s): R14.0 - Abdominal distension (gaseous) Status: Acute Assessment and Plan: Resolved. Constipation? (6) Hyperlipidemia: Code(s): E78.5 - Hyperlipidemia, unspecified Status: Acute Assessment and Plan: Start Atorvastatin 40 mg daily. Subjective Date/time seen: 09/13/25 07:52 Interval history: States his abdominal pain and leg pain are all right. Denies chest pain or sob. He wants to go home. Exam Const: General: cooperative, healthy appearing and comfortable Resp: Auscultation: clear to auscultation bilaterally, no crackles, no rales, no rhonchi and no wheezes Cardio: Rate: regular rate Rhythm: regular rhythm Heart sounds: no murmurs Peripheral pulses: dorsalis pedis present GI: GI Palp: No abdominal tenderness and Yes Soft to palpation Neuro: General: oriented to person, oriented to place and oriented to time Extrem: Right lower extremity: no edema Left lower extremity: no edema Objective Data Vital Signs Vital Signs: Vital Signs - 24 hr 09/12/25 08:26 09/12/25 08:30 09/12/25 08:31 Temperature Pulse Rate 64 65 63 Respiratory Rate 17 15 16 Blood Pressure 143/75 H Pulse Oximetry 98 98 98 Oxygen Delivery 11/06/25 08:47 09/12/25 09:14 09/12/25 09:15 Temperature Pulse Rate 71 73 78 Respiratory Rate 16 16 17 Blood Pressure 160/88 H Pulse Oximetry 98 98 98 Oxygen Delivery 09/12/25 09:56 09/12/25 10:00 09/12/25 12:00 Temperature 97.6 F Pulse Rate 82 69 51 L Respiratory Rate 18 Blood Pressure 164/82 H Pulse Oximetry 97 Oxygen Delivery 09/12/25 12:00 09/12/25 14:00 09/12/25 15:41 Temperature 97.4 F L 97.3 F L Pulse Rate 71 64 63 Respiratory Rate 16 12 Blood Pressure 173/75 H 147/73 H Pulse Oximetry 97 99 Oxygen Delivery 09/12/25 16:00 09/12/25 16:00 09/12/25 18:00 Temperature Pulse Rate 67 64 Respiratory Rate Blood Pressure Pulse Oximetry Oxygen Delivery Room Air 09/12/25 20:00 09/12/25 20:00 09/12/25 22:00 Temperature 97.6 F Pulse Rate 48 L 45 L 48 L Respiratory Rate 16 Blood Pressure 134/67 Pulse Oximetry 96 Oxygen Delivery 09/12/25 23:57 09/13/25 00:00 09/13/25 02:00 Temperature 97.6 F Pulse Rate 62 56 L 73 Respiratory Rate 14 Blood Pressure 115/54 L Pulse Oximetry 92 Oxygen Delivery 09/13/25 04:00 09/13/25 04:00 09/13/25 06:00 Temperature 97.7 F Pulse Rate 58 L 61 49 L Respiratory Rate 14 Blood Pressure 147/65 H Pulse Oximetry 98 Oxygen Delivery Intake/Output Intake/Output: Intake & Output 09/10/25 09/11/25 09/12/25 09/13/25 23:59 23:59 23:59 23:59 Intake Total 390.2 100 Output Total 200 Balance 190.2 100 Meds/Results Medications: Active Medications Generic Name Dose Route Start Last Admin Trade Name Freq PRN Reason Stop Dose Admin Amlodipine Besylate 10 mg 09/12/25 13:20 09/12/25 14:14 Amlodipine Besylate 10 Mg Tablet BY MOUTH 10 mg DAILY [facility] Administration Aspirin 81 mg 09/13/25 09:00 Aspirin 81 Mg Enteric Tablet PO QAM [facility] Atorvastatin Calcium 40 mg 09/13/25 09:00 Atorvastatin 40 Mg Tablet PO DAILY [facility] Docusate Sodium 100 mg 09/12/25 13:25 09/12/25 20:18 Docusate Sodium 100 Mg Capsule PO 100 mg Q12HR JORGE Administration Hydrochlorothiazide 12.5 mg 09/12/25 09:00 09/12/25 14:15 Hydrochlorothiazide 12.5 Mg Capsule PO 12.5 mg DAILY JORGE Administration Lisinopril 40 mg 09/12/25 13:20 09/12/25 14:14 Lisinopril 20 Mg Tablet BY MOUTH 40 mg DAILY JORGE Administration Morphine Sulfate 2 mg 09/12/25 12:36 Morphine Sulfate (*Crx) 4 Mg/Ml Inj IV PUSH Q4H PRN Pain Rated 7-10 Naloxone HCl 0.1 mg 09/12/25 12:36 Naloxone Hcl 0.4 Mg/Ml Vial IV PUSH Q2M PRN Opiate Reversal Pantoprazole Sodium 40 mg 09/12/25 13:25 09/12/25 14:14 Pantoprazole 40 Mg Tablet PO 40 mg QAM JORGE Administration Radiology Results: ITS Impressions Chest/Abdomen/Pelvis CTA 09/12/25 06:58 IMPRESSION: 1. Aortic atherosclerosis. No aneurysm or dissection. 2. Left inguinal hernia containing fat. Chest X-Ray 09/12/25 07:22 IMPRESSION: 1. No acute cardiopulmonary findings given portable technique. Labs Labs: Laboratory Results - last 24 hr 09/12/25 09/12/25 09/12/25 07:15 10:42 18:46 WBC RBC Hgb Hct MCV MCH MCHC RDW Plt Count MPV Immature Gran % (Auto) Neut % (Auto) Lymph % (Auto) Jennings % (Auto) Eos % (Auto) Baso % (Auto) Lymph # (Auto) Jennings # (Auto) Eos # (Auto) Baso # (Auto) Abs Immat Gran (auto) Absolute Neuts (auto) Absolute Nucleated RBC Nucleated RBC % APTT > 200.0 H* 125.9 H Sodium Potassium Chloride Carbon Dioxide Anion Gap BUN Creatinine Estim Creat Clear Calc Estimated GFR Glucose Calcium Total Bilirubin AST ALT Alkaline Phosphatase Troponin I 0.083 H* 0.094 H* Total Protein Albumin Triglycerides 45 Cholesterol 224 H LDL Cholesterol Direct 132 HDL Direct 65 09/13/25 04:12 WBC 6.9 RBC 4.87 Hgb 15.4 Hct 44.6 MCV 91.6 MCH 31.6 MCHC 34.5 RDW 13.4 Plt Count 237 MPV 9.6 Immature Gran % (Auto) 0.1 Neut % (Auto) 66.4 Lymph % (Auto) 20.1 Jennings % (Auto) 9.5 H Eos % (Auto) 3.5 Baso % (Auto) 0.4 Lymph # (Auto) 1.38 Jennings # (Auto) 0.7 H Eos # (Auto) 0.2 Baso # (Auto) 0.0 Abs Immat Gran (auto) 0.01 Absolute Neuts (auto) 4.6 Absolute Nucleated RBC 0.000 Nucleated RBC % 0.0 APTT Sodium 133 L Potassium 3.9 Chloride 101 Carbon Dioxide 22 Anion Gap 10 BUN 16 Creatinine 0.98 Estim Creat Clear Calc 50 Estimated GFR > 60 Glucose 80 Calcium 8.8 Total Bilirubin 1.3 AST 40 ALT 17 Alkaline Phosphatase 52 Troponin I 0.096 H* Total Protein 7.1 Albumin 4.1 Triglycerides Cholesterol LDL Cholesterol Direct HDL Direct
[2025-09-13] MEDS: DOCUSATE SODIUM 100 MG CAPSULE PO (08:18)
[2025-09-13] MEDS: ATORVASTATIN 40 MG TABLET PO (08:18)
[2025-09-13] MEDS: PANTOPRAZOLE 40 MG TABLET PO (08:18)
[2025-09-13] MEDS: ASPIRIN 81 MG ENTERIC TABLET PO (08:18)
--- NOTE | 2025-09-13 10:55 | PM.IMPN ---
Progress Note: A&P Assessment and Plan (1) Elevated troponin: Code(s): R79.89 - Other specified abnormal findings of blood chemistry Status: Acute Assessment and Plan: Majority of labs were stable on admission psych: The patient is in troponin, trending from 0.071-0.094, 0.096 this morning. Patient had been on heparin drip for consideration for NSTEMI however after echocardiogram was received is normal, this was stopped. However, given increase in troponin this morning, Cardiology would like to proceed with NST. Patient will be for NST today, can be discharged from cardiology point of view if normal. Given no other acute issues at this time, agree with discharge if NST is normal. (2) Hyperlipidemia: Code(s): E78.5 - Hyperlipidemia, unspecified Status: Acute Assessment and Plan: Started on atorvastatin 40 mg (3) Bradycardia: Code(s): R00.1 - Bradycardia, unspecified Status: Acute Assessment and Plan: Following with Cardiology in the outpatient setting Outpatient cardiology follow-up on discharge (4) Neuropathy: Code(s): G62.9 - Polyneuropathy, unspecified Status: Acute Assessment and Plan: Chronic neuropathy of left leg Can see Neurology in the outpatient setting on discharge (5) Essential (primary) hypertension: Code(s): I10 - Essential (primary) hypertension Status: Acute Assessment and Plan: Blood pressure initially elevated, on amlodipine 10 mg, hydrochlorothiazide 12.5 mg, lisinopril 40 mg daily. Blood pressure 140/64 this morning Continue home medications Plan DVT prophylaxis Heart healthy diet Subjective Date/time seen: 09/13/25 10:55 Interval history: Patient is a 75-year-old male past medical history of bradycardia and hypertension coming from home presenting with 2-3 weeks onset of abdominal pain, weakness constipation, recently chest pain. Patient is not optimal historian and as such full detailed history is difficult to obtain at this time. He also reports complain of numbness in the left leg that is intermittent, which has since from the distal leg up to the abdomen. Denies paresis or paralysis, deny symptoms getting worse with hip flexion. EKG in the emergency room shows right bundle-branch block with ectopic atrial rhythm and intermittent bradycardia, this is all known and patient follows with Cardiology outpatient for the same. Troponins were initially elevated at 0.073, as such heparin drip was started in the emergency room. Cardiology is on board at this time, recommending trending troponin and obtaining echocardiogram. If troponin trends down or echo is normal, heparin drip can be discontinued and suspicion of NSTEMI can be eliminated. However, troponins are actively trending up, to 0.083 and 0.094. Patient denies symptoms of UTI, he says he thinks he has COVID as he has noted mild dry cough, congestion, with above-mentioned body aches and weakness. COVID is negative as is influenza and RSV. Labs on admission reviewed, largely within normal parameters aside from sodium 133 and CO2 of 21. CHEST CTA: The lungs demonstrate mild atelectasis. No pleural effusion. The heart size is normal. No pericardial effusion. There are coronary artery calcifications. Aortic atherosclerosis is noted. There are bridging endplate osteophytes at multiple levels in the spine, consistent with diffuse idiopathic skeletal hyperostosis (DISH). There is severe cervical spondylosis and mild thoracic spondylosis. ABDOMEN AND PELVIS CTA: The liver, gallbladder, spleen, pancreas, adrenal glands, and kidneys are normal. The prostate is mildly enlarged. There is a left inguinal hernia containing fat. There are no pathologically enlarged lymph nodes. There is no free intraperitoneal fluid. There is no significant stenosis of celiac axis, superior mesenteric artery, the renal arteries, or inferior mesenteric artery. There is a total right hip arthroplasty. There is severe lumbar spondylosis. CXR: No acute cardiopulmonary findings given portable technique. Review of Systems Review of Systems: All systems reviewed & are unremarkable except as noted in HPI and below Exam Narrative: APPEARANCE: No apparent distress. Head: atraumatic. EYES: EOMI, NOSE: Atraumatic NECK: Trachea midline RESPIRATORY: No increased rate of breathing Clear to auscultation CARDIOVASCULAR: intermittently bradycardic into the 40s, +2 pulses all extremities limbs are well perfused ABDOMINAL: Non-distended, soft nontender MUSCULOSKELETAl: focal exam lower extremities reveal no obvious deformities, no overlying skin changes, feet are warm with normal cap refill and strong pulses. NEURO: Alert. Moving 4/4 extremities SKIN:: Warm, dry. Normal color PSYCHIATRIC: Withdrawn Objective Data Vital Signs Vital Signs: Vital Signs - 24 hr 09/12/25 12:00 09/12/25 12:00 09/12/25 14:00 Temperature 97.4 F L Pulse Rate 51 L 71 64 Respiratory Rate 16 Blood Pressure 173/75 H Pulse Oximetry 97 Oxygen Delivery 09/12/25 15:41 09/12/25 16:00 09/12/25 16:00 Temperature 97.3 F L Pulse Rate 63 67 Respiratory Rate 12 Blood Pressure 147/73 H Pulse Oximetry 99 Oxygen Delivery Room Air 09/12/25 18:00 09/12/25 20:00 09/12/25 20:00 Temperature 97.6 F Pulse Rate 64 48 L 45 L Respiratory Rate 16 Blood Pressure 134/67 Pulse Oximetry 96 Oxygen Delivery 09/12/25 22:00 09/12/25 23:57 09/13/25 00:00 Temperature 97.6 F Pulse Rate 48 L 62 56 L Respiratory Rate 14 Blood Pressure 115/54 L Pulse Oximetry 92 Oxygen Delivery 09/13/25 02:00 09/13/25 04:00 09/13/25 04:00 Temperature 97.7 F Pulse Rate 73 58 L 61 Respiratory Rate 14 Blood Pressure 147/65 H Pulse Oximetry 98 Oxygen Delivery 09/13/25 06:00 09/13/25 07:28 09/13/25 07:40 Temperature 97.6 F Pulse Rate 49 L 120 H Respiratory Rate 18 Blood Pressure 140/64 Pulse Oximetry 95 98 Oxygen Delivery Room Air 09/13/25 08:00 09/13/25 10:00 Temperature Pulse Rate 45 L 66 Respiratory Rate Blood Pressure Pulse Oximetry Oxygen Delivery Intake/Output Intake/Output: Intake & Output 09/10/25 09/11/25 09/12/25 09/13/25 23:59 23:59 23:59 23:59 Intake Total 390.2 100 Output Total 200 Balance 190.2 100 Meds/Results Medications: Active Medications Generic Name Dose Route Start Last Admin Trade Name Freq PRN Reason Stop Dose Admin Amlodipine Besylate 10 mg 09/12/25 13:20 09/13/25 08:18 Amlodipine Besylate 10 Mg Tablet BY MOUTH 10 mg DAILY JORGE Administration Aspirin 81 mg 09/13/25 09:00 09/13/25 08:18 Aspirin 81 Mg Enteric Tablet PO 81 mg QAM JORGE Administration Atorvastatin Calcium 40 mg 09/13/25 09:00 09/13/25 08:18 Atorvastatin 40 Mg Tablet PO 40 mg DAILY JORGE Administration Docusate Sodium 100 mg 09/12/25 13:25 09/13/25 08:18 Docusate Sodium 100 Mg Capsule PO 100 mg Q12HR JORGE Administration Hydrochlorothiazide 12.5 mg 09/12/25 09:00 09/13/25 08:18 Hydrochlorothiazide 12.5 Mg Capsule PO 12.5 mg DAILY JORGE Administration Lisinopril 40 mg 09/12/25 13:20 09/13/25 08:18 Lisinopril 20 Mg Tablet BY MOUTH 40 mg DAILY JORGE Administration Morphine Sulfate 2 mg 09/12/25 12:36 Morphine Sulfate (*Crx) 4 Mg/Ml Inj IV PUSH Q4H PRN Pain Rated 7-10 Naloxone HCl 0.1 mg 09/12/25 12:36 Naloxone Hcl 0.4 Mg/Ml Vial IV PUSH Q2M PRN Opiate Reversal Pantoprazole Sodium 40 mg 09/12/25 13:25 09/13/25 08:18 Pantoprazole 40 Mg Tablet PO 40 mg QAM JORGE Administration Radiology Results: ITS Impressions Chest/Abdomen/Pelvis CTA 09/12/25 06:58 IMPRESSION: 1. Aortic atherosclerosis. No aneurysm or dissection. 2. Left inguinal hernia containing fat. Chest X-Ray 09/12/25 07:22 IMPRESSION: 1. No acute cardiopulmonary findings given portable technique. Labs Labs: Laboratory Results - last 24 hr 09/12/25 09/12/25 09/13/25 10:42 18:46 04:12 WBC 6.9 RBC 4.87 Hgb 15.4 Hct 44.6 MCV 91.6 MCH 31.6 MCHC 34.5 RDW 13.4 Plt Count 237 MPV 9.6 Immature Gran % (Auto) 0.1 Neut % (Auto) 66.4 Lymph % (Auto) 20.1 [place] % (Auto) 9.5 H Eos % (Auto) 3.5 Baso % (Auto) 0.4 Lymph # (Auto) 1.38 [place] # (Auto) 0.7 H Eos # (Auto) 0.2 Baso # (Auto) 0.0 Abs Immat Gran (auto) 0.01 Absolute Neuts (auto) 4.6 Absolute Nucleated RBC 0.000 Nucleated RBC % 0.0 APTT > 200.0 H* 125.9 H Sodium 133 L Potassium 3.9 Chloride 101 Carbon Dioxide 22 Anion Gap 10 BUN 16 Creatinine 0.98 Estim Creat Clear Calc 50 Estimated GFR > 60 Glucose 80 Calcium 8.8 Total Bilirubin 1.3 AST 40 ALT 17 Alkaline Phosphatase 52 Troponin I 0.094 H* 0.096 H* Total Protein 7.1 Albumin 4.1 Triglycerides 45 Cholesterol 224 H LDL Cholesterol Direct 132 HDL Direct 65 Hospitalist MIPS Advance Care Plan I have confirmed that the patient's Advanced Care Plan is present, code status is documented, or surrogate decision maker is listed in patient medical record.: Yes Medication Reconciliation I have utilized all available resources to obtain, update and review the patients current medications (includes all prescriptions, OTC, herbals, cannabis, and nutritional supplements).: Yes
--- NOTE | 2025-09-13 15:48 | PM.DS ---
DS: Admitting Diagnosis Discharge Date 09/13/25 Admitting Diagnosis Elevated troponin DS: Discharge Diagnosis Discharge Diagnosis (1) Elevated troponin: Code(s): R79.89 - Other specified abnormal findings of blood chemistry Status: Acute Assessment and Plan: Majority of labs were stable on admission except for elevated troponin, trending from 0.071-0.094, 0.096 this morning. Patient had been on heparin drip for consideration for NSTEMI however after echocardiogram was received as normal, this was stopped. However, given increase in troponin this morning, Cardiology would like to proceed with NST. NST was performed and negative for ischemia, Cardiology has discharged from their perspective (2) Neuropathy: Code(s): G62.9 - Polyneuropathy, unspecified Status: Acute Assessment and Plan: Chronic neuropathy of left leg Can see Neurology in the outpatient setting on discharge (3) Essential (primary) hypertension: Code(s): I10 - Essential (primary) hypertension Status: Acute Assessment and Plan: Blood pressure initially elevated, on amlodipine 10 mg, hydrochlorothiazide 12.5 mg, lisinopril 40 mg daily. Blood pressure 140/64 this morning Continue home medications DS: Summary Hospital Course Hospital Course: Patient is a 75-year-old male past medical history of bradycardia and hypertension coming from home presenting with 2-3 weeks onset of abdominal pain, weakness constipation, recently chest pain. Patient is not optimal historian and as such full detailed history is difficult to obtain at this time. He also reports complain of numbness in the left leg that is intermittent, which has since from the distal leg up to the abdomen. Denies paresis or paralysis, deny symptoms getting worse with hip flexion. EKG in the emergency room shows right bundle-branch block with ectopic atrial rhythm and intermittent bradycardia, this is all known and patient follows with Cardiology outpatient for the same. Troponins were initially elevated at 0.073, as such heparin drip was started in the emergency room. Cardiology is on board at this time, recommending trending troponin and obtaining echocardiogram. If troponin trends down or echo is normal, heparin drip can be discontinued and suspicion of NSTEMI can be eliminated. However, troponins are actively trending up, to 0.083 and 0.094. Patient denies symptoms of UTI, he says he thinks he has COVID as he has noted mild dry cough, congestion, with above-mentioned body aches and weakness. COVID is negative as is influenza and RSV. Labs on admission reviewed, largely within normal parameters aside from sodium 133 and CO2 of 21. CHEST CTA: The lungs demonstrate mild atelectasis. No pleural effusion. The heart size is normal. No pericardial effusion. There are coronary artery calcifications. Aortic atherosclerosis is noted. There are bridging endplate osteophytes at multiple levels in the spine, consistent with diffuse idiopathic skeletal hyperostosis (DISH). There is severe cervical spondylosis and mild thoracic spondylosis. ABDOMEN AND PELVIS CTA: The liver, gallbladder, spleen, pancreas, adrenal glands, and kidneys are normal. The prostate is mildly enlarged. There is a left inguinal hernia containing fat. There are no pathologically enlarged lymph nodes. There is no free intraperitoneal fluid. There is no significant stenosis of celiac axis, superior mesenteric artery, the renal arteries, or inferior mesenteric artery. There is a total right hip arthroplasty. There is severe lumbar spondylosis. CXR: No acute cardiopulmonary findings given portable technique. ---- Patient admitted to to troponin elevation, patient had been denies significant chest pain during hospitalization or any other symptoms. Labs reviewed no significant abnormalities aside from troponin. Cardiology decided to proceed with echocardiogram which is negative, prompting discontinuation of heparin drip and recommended trend troponin on the next day. Follow troponin slightly elevated, as such NST was recommended in ordered. NST was conducted which is negative for ischemia, and from cardiology perspective patient was stable for discharge. Agree with Cardiology assessment. Patient stable for discharge. Status at Discharge Cognitive/behavioral status at discharge: Stable Time Spent with Patient Time attestation: Total time spent providing and/or coordinating discharge services: Exam Narrative: APPEARANCE: No apparent distress. Head: atraumatic. EYES: EOMI, NOSE: Atraumatic NECK: Trachea midline RESPIRATORY: No increased rate of breathing Clear to auscultation CARDIOVASCULAR: intermittently bradycardic into the 40s, +2 pulses all extremities limbs are well perfused ABDOMINAL: Non-distended, soft nontender MUSCULOSKELETAl: focal exam lower extremities reveal no obvious deformities, no overlying skin changes, feet are warm with normal cap refill and strong pulses. NEURO: Alert. Moving 4/4 extremities SKIN:: Warm, dry. Normal color PSYCHIATRIC: Withdrawn DS: Data Data Completed and Pending Labs on day of discharge: Labs from last 24 hours 09/13/25 09/12/25 04:12 18:46 WBC 6.9 RBC 4.87 Hgb 15.4 Hct 44.6 MCV 91.6 MCH 31.6 MCHC 34.5 RDW 13.4 Plt Count 237 MPV 9.6 Immature Gran % (Auto) 0.1 Neut % (Auto) 66.4 Lymph % (Auto) 20.1 [place] % (Auto) 9.5 H Eos % (Auto) 3.5 Baso % (Auto) 0.4 Lymph # (Auto) 1.38 [place] # (Auto) 0.7 H Eos # (Auto) 0.2 Baso # (Auto) 0.0 Abs Immat Gran (auto) 0.01 Absolute Neuts (auto) 4.6 Absolute Nucleated RBC 0.000 Nucleated RBC % 0.0 APTT 125.9 H Sodium 133 L Potassium 3.9 Chloride 101 Carbon Dioxide 22 Anion Gap 10 BUN 16 Creatinine 0.98 Estim Creat Clear Calc 50 Estimated GFR > 60 Glucose 80 Calcium 8.8 Total Bilirubin 1.3 AST 40 ALT 17 Alkaline Phosphatase 52 Troponin I 0.096 H* Total Protein 7.1 Albumin 4.1 Discharge Plan Discharge Consulting providers: Robin Holloway Discharging Clinician: Fabian Garcia Oca Patient Disposition: Home Activity: as tolerated Diet: heart healthy Patient Instructions: Antibiotic Form Patient Language: Jordanian Stand Alone Forms: General Discharge Information Follow-up/Referrals: Neurology [Provider Group] Robin Holloway DO [Physician, Cardiology] Discharge Medications: New atorvastatin 40 mg Tablet 40 mg PO DAILY 30 Days Qty: 30 0RF Continued amlodipine 10 mg tablet 10 mg PO DAILY aspirin [Adult Aspirin Regimen] 81 mg tablet,delayed release (DR/EC) 81 mg PO DAILY naproxen sodium [Aleve] 220 mg capsule 440 mg PO DAILY 14 Days Qty: 0 0RF Changed lisinopril 40 mg tablet 40 mg PO DAILY 30 Days Qty: 0 0RF hydrochlorothiazide 12.5 mg tablet 12.5 mg PO DAILY 30 Days Qty: 0 0RF Date of admission: 09/12/25 15:49 Primary Care Provider: Anahi Amaya Admitting Provider: Bhavna Reynolds Attending physician on admission: Bhavna Reynolds Condition: Stable Hospitalist MIPS Heart Failure (Exclusion) Patient has history of Heart Transplant or Left Ventricular Assistive Device?: No IF YES, STOP HERE Heart Failure (Qualifier) Patient has current or prior documentation of LVEF less than or equal to 40%, or mod/servere depressed LVSF?: No IF NO, STOP HERE
== END 2025-09-13 16:05 | disposition home or self-care (01) ==
LOC: ANHED 06:44 → ANHIMU 15:21
PROVIDERS: Admitting Provider General Practice; Emergency Provider Emergency Medicine; PCP Nurse Practitioner Family; Visit Provider Student in an Organized Health Care Education/Training Program
DX: R79.89 Other specified abnormal findings of blood chemistry (principal); E78.5 Hyperlipidemia, unspecified; R00.1 Bradycardia, unspecified; I10 Essential (primary) hypertension; I45.2 Bifascicular block; I21.9 Acute myocardial infarction, unspecified; I49.1 Atrial premature depolarization; G62.9 Polyneuropathy, unspecified; M79.605 Pain in left leg; R14.0 Abdominal distension (gaseous); Z20.822 Contact with and (suspected) exposure to COVID-19; Z96.641 Presence of right artificial hip joint; Z79.82 Long term (current) use of aspirin; Z79.1 Long term (current) use of non-steroidal anti-inflammatories (NSAID); Z80.9 Family history of malignant neoplasm, unspecified
CPT/HCPCS: 36415; 71045; 71275; 74174; 78452; 80053; 80061; 83690; 84484; 85025; 85610; 85730; 87637; 93005; 93017; 96365; 96366; 96375; 99285; A9270; A9502; C8929; G0378; J1644; J2785; Q9957; Q9967